=== PATIENT | male | born 1985 ===

== ENCOUNTER 2022-12-10 13:19 | Inpatient (IN) | payer BC, SELFPAY ==
--- NOTE | ~2022-12-10 | CT_ITS ---
PROCEDURE: CT GUIDED ABSCESS DRAINAGE CLINICAL INFORMATION: Appendiceal abscess. COMPARISON: Previous CT of the abdomen and pelvis 12/10/2022. TECHNIQUE: Procedure and risks and benefits including bleeding, infection and injury to the bowel were discussed with the patient and informed consent was obtained. Limited axial images through the right lower quadrant were performed. The right lower quadrant was prepped and draped in the usual sterile fashion. The skin and soft tissues were anesthetized with 1% lidocaine plain. Using CT guidance and a 5 [place] Yueh needle, access to the inferior part of the collection was obtained. No fluid could be aspirated. Subsequently, the more superior aspect of the collection was accessed using a 5 [place] Yueh needle. Slightly cloudy yellow serous fluid was aspirated. Over a 0.035 guidewire and following serial dilatation, an 8.5 [place] drain was placed. Slightly cloudy yellow fluid with white small solid components was aspirated, approximately 25 to 30 mL. Specimen was sent for Gram stain, culture and cytology. Drain was left in place to bulb suction. Findings were discussed with Dr. Nair. The patient received Versed 1.5 mg and fentanyl 75 mcg intravenously during the procedure. Conscious sedation was provided by registered nurse under my direct supervision with 20 minutes of [id number] contact sedation time. This CT examination was performed using dose optimization techniques as appropriate, variously including the following: *Automated exposure control *Adjustment of mA and/or kV according to patient size (this includes techniques or standardized protocols for targeted exams where dose is matched to indication/reason for exam; i.e. extremities or head) *Use of iterative reconstruction technique DLP: 234 mGy-cm. FINDINGS: There is a complex cystic multiloculated fluid collection seen in the right lower quadrant. This has peripheral high attenuation questionable for appendicoliths, bowel contents or calcification superiorly. Findings are slightly increased compared to to 12/10/2022 CT scan. For example more superior portion of the collection with high attenuation wall measures 4.8 x 5.6 cm axial image 7 series 4 compared to 3.2 x 5 cm and inferior component measures 4 x 5 cm axial image 12 series 2 compared to 3 x 3 cm. There is a small amount of surrounding fluid and stranding of the surrounding fat. These changes extend into the right pelvis. Final images demonstrate drain placement in the superior aspect of the collection. CT/CT drain appendiceal abscess IMPRESSION: Right lower quadrant drainage.
--- NOTE | ~2022-12-10 | CT_ITS ---
EXAMINATION: CT ABDOMEN AND PELVIS WITH CONTRAST CLINICAL INFORMATION: Right lower quadrant pain question appendicitis COMPARISON: None TECHNIQUE: Multidetector volumetric images were obtained from the superior aspect of the liver through the pubic symphysis following administration 85 mL of Omnipaque 350 intravenous contrast. Sagittal and coronal reformatted images were obtained on the technologist's workstation. Oral contrast: No This CT examination was performed using dose optimization techniques as appropriate, variously including the following: *Automated exposure control *Adjustment of mA and/or kV according to patient size (this includes techniques or standardized protocols for targeted exams where dose is matched to indication/reason for exam; i.e. extremities or head) *Use of iterative reconstruction technique DLP: 569 mGy-cm FINDINGS: LUNG BASES: Unremarkable. ABDOMINAL AND PELVIC WALL: Small fat-containing umbilical hernia. LIVER AND BILIARY TREE: Unremarkable. GALLBLADDER: Unremarkable. PANCREAS: Unremarkable. SPLEEN: Unremarkable. ADRENAL GLANDS: Unremarkable. KIDNEYS AND URETERS: Unremarkable. GASTROINTESTINAL TRACT: The appendix is dilated, fluid-filled and thick-walled measuring up to 1.5 cm terminating in a approximately 5.6 x 5.5 x 6.1 cm periappendiceal fluid collection suggesting perforation. There is high density material within the collection which may reflect appendicoliths or other bowel contents. No diya rim enhancement. No diya extraluminal intraperitoneal free air. VASCULAR: Unremarkable. LYMPH NODES/PERITONEUM: No lymphadenopathy. FREE FLUID: Trace free fluid along the right paracolic gutter and in the pelvis. BLADDER: Unremarkable. PELVIC VISCERA: Unremarkable. OSSEOUS STRUCTURES: Unremarkable. CT/CT abdomen pelvis w IV con IMPRESSION: The appendix is dilated, fluid-filled and thick-walled measuring up to 1.5 cm compatible with acute appendicitis terminating in a approximately 6.1 cm periappendiceal fluid collection suggesting perforation. There is high density material within the collection which may reflect appendicoliths or other bowel contents. No diya rim enhancement diya extraluminal air. These critical results were discussed with Dr. Gunner Arreola by telephone at 12/10/2022 4:23 PM and it was ascertained that the content and urgency of the report was understood at the time of direct communication.
[2022-12-10 14:03] VITALS: BP 107/71; PULSE 77; RESP 18; TEMP 37.4; O2SAT 99; BMI 28.1
--- NOTE | 2022-12-10 14:03 | ED.ABDPAIN ---
HPI - Abdominal Pain General Chief Complaint: Abdominal Pain Stated Complaint: abd pain Time Seen by Provider: 12/10/22 14:11 Related Data Previous Rx's Medication Instructions Recorded amoxicillin 875 mg-potassium 1 tab PO BID #14 tabs 12/15/22 clavulanate 125 mg tablet oxycodone 5 mg tablet 5 mg PO Q4H PRN pain #10 tabs 12/15/22 Allergies Allergy/AdvReac Type Severity Reaction Status Date / Time No Known Allergies Allergy Verified 12/16/22 13:14 [facility] Past Medical History Medical History (Updated 12/10/22 @ 16:33 by Louie Nair MD) Appendiceal abscess Surgical History (Updated 12/13/22 @ 10:26 by Marjorie Balderas) H/O hand surgery Social History Social History Household Members: Family Housing: House Do you presently have visiting nurse or other home services: No Patient Tobacco Use Status: Never used Tobacco service: No Current occupational status: employed Physical Exam ED Vital Signs: BMI result Body Mass Index 28.1 Course Course Course Narrative: this is a rapid medical exam. Deferred additional HPI, ROS, PE to primary provider. 37 yo male healthy here with RLQ AP since last night. No vomiting/diarrhea/urinary symptoms/fevers/chills. No history of abdominal surgeries. Seen at urgent care and referred in to the ER for further evaluation. Will obtain labs, UA, COVID. Anticipate will need CT A/P. VSS Medical Decision Making Lab Data 12/15/22 05:48 12/10/22 14:45 Labs: Lab Results 12/10/22 12/10/22 12/10/22 Range/Units 14:27 14:27 14:45 WBC 10.4 (4.8-10.8) X10*3/uL RBC 4.78 (4.60-5.80) X10*6/uL Hgb 13.8 L (14.0-18.0) g/dl Hct 42.2 (42.0-52.0) % MCV 88.3 (80.0-98.0) fL MCH 28.9 (27.0-33.0) pg MCHC 32.7 (31.0-36.0) g/dl RDW 13.0 (11.0-16.0) % Plt Count 197 (160-400) X10*3/uL MPV 11.1 (9.4-12.4) fL Immature Gran % (Auto) 0.3 (0.0-0.4) % Neut % (Auto) 61.8 (45-73) % Lymph % (Auto) 30.4 (20-40) % [place] % (Auto) 6.3 (2-11) % Eos % (Auto) 0.9 (0-4) % Baso % (Auto) 0.3 (0-2) % Lymph # (Auto) 3.2 (1.2-4.9) X10*3/uL [place] # (Auto) 0.7 (0.1-1.2) X10*3/uL Eos # (Auto) 0.1 (0.0-0.4) X10*3/uL Baso # (Auto) 0.0 (0.0-0.2) X10*3/uL Abs Immat Gran (auto) 0.03 (0.00-0.03) X10*3/uL Absolute Neuts (auto) 6.4 (2.0-8.3) x10*3/uL Absolute Nucleated RBC 0.000 (0.0-0.012) X10*3/uL Nucleated RBC % (auto) 0.0 (0.0-0.2) /100WBC Sodium 140 (135-145) mmol/L Potassium 4.1 (3.3-5.1) mmol/L Chloride 105 (96-108) mmol/L Carbon Dioxide 27 (22-29) mmol/L Anion Gap 12 (12-20) BUN 15 (9-16) mg/dL Creatinine 0.84 (0.5-1.4) mg/dL Estim Creat Clear Calc 125.8 Estimated GFR > 60 Random Glucose 93 (60-115) mg/dL Calcium 9.1 (8.4-10.2) mg/dL Total Bilirubin 0.5 (0.0-1.0) mg/dL Direct Bilirubin < 0.2 (0.0-0.5) mg/dL AST 16 (5-37) U/L ALT 19 (0-40) U/L Alkaline Phosphatase 56 (39-117) U/L Total Protein 7.8 (6.5-8.0) g/dL Albumin 4.1 (3.5-5.0) g/dL Lipase 27 (8-78) U/L COVID-19 ([facility]ADE) Negative (Negative) COVID-19 Clin Com See Note Medications Administered Discontinued Medications Generic Name Dose Route Start Last Admin Trade Name Freq PRN Reason Stop Dose Admin Acetaminophen 650 mg 12/11/22 14:32 12/13/22 07:40 Acetaminophen 325 Mg Tablet PO 650 mg Q6H PRN Administration Fever Piperacillin Sod/Tazobactam 50 mls @ 100 mls/hr 12/10/22 16:25 12/10/22 18:14 Sod 3.375 gm/ Sodium Chloride IV 12/10/22 16:54 Infused ONCE ONE Infusion Piperacillin Sod/Tazobactam 50 mls @ 100 mls/hr 12/10/22 23:00 12/15/22 11:15 Sod 3.375 gm/ Sodium Chloride IV Infused Q6H MICHAEL Infusion Lactated Ringer's 1,000 mls @ 80 mls/hr 12/10/22 16:45 12/12/22 20:03 Lr IVCONT Infused .[id number] MICHAEL Infusion Dextrose/Lactated Ringer's 1,000 mls @ 80 mls/hr 12/12/22 20:15 12/14/22 15:35 D5lr IVCONT Not Given .[id number] MICHAEL Ibuprofen 400 mg 12/11/22 17:01 12/11/22 18:02 Ibuprofen 400 Mg Tablet PO 400 mg Q6H PRN Administration Fever and mild pain Iohexol 100 ml 12/10/22 15:37 12/10/22 15:37 Iohexol 350 Mg/Ml 100 Ml Infus..Btl IV 12/10/22 15:38 85 ml ONCE ONE Administration Lidocaine HCl 10 ml 12/13/22 13:47 12/13/22 13:47 Lidocaine Hcl 1 % Mpf 5 Ml Vial SUBCUT 12/13/22 13:48 10 ml ONCE ONE Administration Morphine Sulfate 2 mg 12/10/22 16:43 12/10/22 21:17 Morphine Sulfate 2 Mg/Ml Cartridge IVPUSH 2 mg Q3H PRN Administration Pain, Severe (Pain Scale 7-10) Protocol Oxycodone HCl 10 mg 12/10/22 16:43 12/15/22 05:21 Oxycodone Hcl Immed Release 5 Mg Tablet PO 10 mg Q4H PRN Administration Pain, Moderate (Pain Scale 4-6 Sodium Chloride 3 ml 12/11/22 00:00 12/15/22 08:02 0.9 % Sodium Chloride Flush 3 Ml Syringe IVFLUSH 3 ml QSHIFT MICHAEL Administration Discharge Plan Discharge Clinical Impression: Acute perforated appendicitis Patient Disposition: Admitted As Inpatient Interventions: Admission Worksheet (ED) Last Done: 12/10/22 21:48 Discharge Date/Time: 12/10/22 21:48
--- NOTE | 2022-12-10 14:13 | ED_ITS ---
HPI - Abdominal Pain General Chief Complaint: Abdominal Pain Stated Complaint: abd pain Time Seen by Provider: 12/10/22 14:11 Source: patient Mode of arrival: ambulatory Limitations: no limitations History of Present Illness HPI narrative: Patient presented to emergency department complaining of right lower quadrant abdominal pain since yesterday, patient was referred to us from the urgent care MD elicited complaint: abdominal pain Pertinent past history: none Onset (ago): day(s) (1) Pain Consistency: constant Location: other (rt lower quadrant) Severity: moderate Quality: dull Radiation: RLQ Migration to: no migration Exacerbating factors: nothing Relieving factors: nothing Related Data Allergies Allergy/AdvReac Type Severity Reaction Status Date / Time No Known Allergies Allergy Verified 12/10/22 14:04 Review of Systems Constitutional: Reports no additional constitutional complaints Reports system reviewed and no additional complaints, except as documented Cardiovascular: Reports no additional cardiovascular complaints Musculoskeletal: Reports no additional musculoskeletal complaints PMFSH Past Medical History [facility] Narrative: none Social History Social History Advance Directives: No Advance Directives Information Provided: Yes Physical Exam ED Vital Signs: Vital Signs - 24 hr 12/10/22 14:03 Temperature 99.4 F Pulse Rate 77 Respiratory Rate 18 Blood Pressure 107/71 Pulse Oximetry 99 Oxygen Delivery Method Room Air BMI result Body Mass Index 28.1 Const General: cooperative, healthy appearing, comfortable, no acute distress, well developed, alert and awake Nutritional Appearance: average body habitus Orientation/consciousness: patient oriented x3 Limitations: no limitations HENMT Other: wnl Head: Yes normal to inspection General nose exam: Normal external nose present Face and sinus: Yes normal facial exam Neck Neck: Yes normal visual inspection and Yes full ROM Resp Effort & Inspection: normal respiratory effort, able to speak in complete sentences and abnormal respiratory pattern Auscultation: clear to auscultation bilaterally Cardio Jugular venous distension: no JVD Rate: regular rate Rhythm: regular rhythm GI Inspection: Yes normal to inspection Palpation (GI): Tenderness to palpation present (GI) (Right lower quadrant t enderness) in the RLQ Auscultation: normal bowel sounds Skin General skin exam: no rashes or lesions noted and elasticity normal Lesions: no lesions Rashes: no rashes Neuro General: patient oriented x3 Cranial nerves: Yes CN's II-XII intact bilaterally Motor exam (neuro): 5/5 motor strength present throughout Course Reevaluation(s) Reevaluation #1: CT SCAN SHOWED PERFORATED APPENDICITIS DR. ROLLINS IS HIS HERE BEDSIDE Time: 16:30 Medical Decision Making Medical Decision Making [facility] Narrative: Patient presented with right lower quadrant abdominal pain referred to us from urgent care will do CT labs Differential Diagnosis Differential Diagnoses: The differential diagnosis associated with the presentat ion includes Appendicitis/diverticulitis/colitis Admission/Observation Consideration of admission/observation: Escalation of care including admission/observation considered Consult Healthcare Provider Management of the patient was discussed with: U[employer]olstery [employer]er dR ROLLINS Lab Data [facility] Lab Attestation statement: I reviewed the patient's lab results. 12/10/22 14:27 12/10/22 14:45 Labs: Lab Results 12/10/22 12/10/22 12/10/22 Range/Units 14:27 14:27 14:45 WBC 10.4 (4.8-10.8) X10*3/uL RBC 4.78 (4.60-5.80) X10*6/uL Hgb 13.8 L (14.0-18.0) g/dl Hct 42.2 (42.0-52.0) % MCV 88.3 (80.0-98.0) fL MCH 28.9 (27.0-33.0) pg MCHC 32.7 (31.0-36.0) g/dl RDW 13.0 (11.0-16.0) % Plt Count 197 (160-400) X10*3/uL MPV 11.1 (9.4-12.4) fL Immature Gran % (Auto) 0.3 (0.0-0.4) % Neut % (Auto) 61.8 (45-73) % Lymph % (Auto) 30.4 (20-40) % [place] % (Auto) 6.3 (2-11) % Eos % (Auto) 0.9 (0-4) % Baso % (Auto) 0.3 (0-2) % Lymph # (Auto) 3.2 (1.2-4.9) X10*3/uL [place] # (Auto) 0.7 (0.1-1.2) X10*3/uL Eos # (Auto) 0.1 (0.0-0.4) X10*3/uL Baso # (Auto) 0.0 (0.0-0.2) X10*3/uL Abs Immat Gran (auto) 0.03 (0.00-0.03) X10*3/uL Absolute Neuts (auto) 6.4 (2.0-8.3) x10*3/uL Absolute Nucleated RBC 0.000 (0.0-0.012) X10*3/uL Nucleated RBC % (auto) 0.0 (0.0-0.2) /100WBC Sodium 140 (135-145) mmol/L Potassium 4.1 (3.3-5.1) mmol/L Chloride 105 (96-108) mmol/L Carbon Dioxide 27 (22-29) mmol/L Anion Gap 12 (12-20) BUN 15 (9-16) mg/dL Creatinine 0.84 (0.5-1.4) mg/dL Estim Creat Clear Calc 125.8 Estimated GFR > 60 Random Glucose 93 (60-115) mg/dL Calcium 9.1 (8.4-10.2) mg/dL Total Bilirubin 0.5 (0.0-1.0) mg/dL Direct Bilirubin < 0.2 (0.0-0.5) mg/dL AST 16 (5-37) U/L ALT 19 (0-40) U/L Alkaline Phosphatase 56 (39-117) U/L Total Protein 7.8 (6.5-8.0) g/dL Albumin 4.1 (3.5-5.0) g/dL Lipase 27 (8-78) U/L COVID-19 ([facility]) Negative (Negative) COVID-19 Clin Com See Note Radiology Impression Discussion of test interpretation with radiology: I discussed test inte rpretation with the radiologist and I have reviewed the radiologist's reading. Radiologist Impression: PELVIC VISCERA: Unremarkable. OSSEOUS STRUCTURES: Unremarkable.? CT/CT abdomen pelvis w IV con IMPRESSION: ? The appendix is dilated, fluid-filled and thick-walled measuring up to 1.5 cm compatible with acute appendicitis terminating in a approximately 6.1 cm periappendiceal fluid collection suggesting perforation. There is high density material within the collection which may reflect appendicoliths or other bowel contents.? No diya rim enhancement diya extraluminal air. ? These critical results were discussed with Dr. Gunner Arreola by telephone at 12/10/2022 4:23 PM and it was ascertained that the content and urgency of the report was understood at the time of direct communication. ? ? ? Dictated By: Carmencita Ag MD Signed By: <Electronically signed by Carmencita Ag MD in OV> 12/10/22 1624 Medications Administered Discontinued Medications Generic Name Dose Route Start Last Admin Trade Name Freq PRN Reason Stop Dose Admin Iohexol 100 ml 12/10/22 15:37 12/10/22 15:37 Iohexol 350 Mg/Ml 100 Ml Infus..Btl IV 12/10/22 15:38 85 ml ONCE ONE Administration Discharge Plan Discharge Clinical Impression: Acute perforated appendicitis Patient Disposition: Admitted As Inpatient
[2022-12-10 14:31] LABS: MANUAL DIFF FLAG NO
[2022-12-10 14:32] LABS: Basophils Percent Auto 0.3 % (0-2); Eosinophils Absolute Auto 0.1 X10*3/uL (0.0-0.4); Eosinophils Percent Auto 0.9 % (0-4); Hematocrit 42.2 % (42.0-52.0); Hemoglobin 13.8 g/dl (14.0-18.0); Imm Gran Abs Auto 0.03 X10*3/uL (0.00-0.03); Imm Gran Pct Auto 0.3 % (0.0-0.4); Lymphocytes Absolute Auto 3.2 X10*3/uL (1.2-4.9); Lymphocytes Percent Auto 30.4 % (20-40); Mean Corpuscular HGB Conc 32.7 g/dl (31.0-36.0); Mean Corpuscular Hemoglobin 28.9 pg (27.0-33.0); Mean Corpuscular Volume 88.3 fL (80.0-98.0); Mean Platelet Volume 11.1 fL (9.4-12.4); Monocytes Absolute Auto 0.7 X10*3/uL (0.1-1.2); Monocytes Percent Auto 6.3 % (2-11); Neutrophils Absolute Auto 6.4 x10*3/uL (2.0-8.3); Neutrophils Percent Auto 61.8 % (45-73); Platelet Count 197 X10*3/uL (160-400); Red Blood Count 4.78 X10*6/uL (4.60-5.80); White Blood Count 10.4 X10*3/uL (4.8-10.8)
[2022-12-10 14:47] LABS: COVID-19 Test Negative (Negative); IDNOW Serial# 16C4AD1C
[2022-12-10 15:11] LABS: Alanine Aminotransferase 19 U/L (0-40); Albumin Level 4.1 g/dL (3.5-5.0); Alkaline Phosphatase 56 U/L (39-117); Anion Gap 12 (12-20); Aspartate Amino Transferase 16 U/L (5-37); Bilirubin Direct < 0.2 mg/dL (0.0-0.5); Bilirubin Total 0.5 mg/dL (0.0-1.0); Blood Urea Nitrogen 15 mg/dL (9-16); Calcium 9.1 mg/dL (8.4-10.2); Carbon Dioxide 27 mmol/L (22-29); Chloride 105 mmol/L (96-108); Creatinine Clr Calc Pharmacy 125.8; Estimated Glomerular Filt Rate > 60; Glucose Random 93 mg/dL (60-115); Lipase 27 U/L (8-78); Potassium 4.1 mmol/L (3.3-5.1); Sodium 140 mmol/L (135-145); Total Protein 7.8 g/dL (6.5-8.0)
[2022-12-10] MEDS: iohexoL 350 MG/ML 100 ML INFUS..BTL IV (15:37)
--- NOTE | 2022-12-10 16:32 | P.HPGS_ITS ---
History of Present Illness History of Present Illness Date of Service: 12/15/22 Chief complaint: appendiceal abscess Narrative: Terrence Diamond is a 37 year old male who came to the ER today because of pain on the right lower flank area. He says that this started late last night. He said that he was perfectly fine throughout the day and did not have any pain or any GI symptoms. His pain had persisted throughout the night so he came to the emergency room today. He did not have any vomiting or nausea. He does not have any fever. He feels well overall. He denies any diarrhea. He denies any other recent episodes of pain. Review of Systems Constitutional: Constitutional: Denies chills and Denies fever(s) Cardiovascular: Cardiovascular: Denies chest pain, Denies dyspnea and Denies dyspnea on exertion Respiratory: Respiratory: Denies cough, Denies dyspnea and Denies dyspnea on exertion Gastrointestinal: Gastrointestinal: Denies hematochezia and Denies change in bowel habits Genitourinary: Genitourinary: Denies hematuria and Denies difficulty urinating Musculoskeletal: Musculoskeletal: Denies back pain and Denies limited range of motion Neurologic: Denies focal weakness and Denies convulsions Psychiatric: Psychiatric: Denies depression and Denies mood swings PMFSH Past Medical History Medical History (Updated 12/10/22 @ 16:33 by Louie Nair MD) Appendiceal abscess Surgical History Surgical History (Updated 12/13/22 @ 10:26 by Marjorie Balderas) H/O hand surgery Social History Social History Household Members: Family Housing: House Do you presently have visiting nurse or other home services: No Patient Tobacco Use Status: Never used Tobacco Use of substances other than those prescribed or required for medical reasons: No Currently Displaying Signs/Symptoms of Drug Intoxication Withdrawal: No Have you been hit, kicked, punched, or otherwise hurt by someone within the past year? If so, by whom?: No Do you feel safe in your current relationship?: Yes Is there a partner from a previous relationship who is making you feel unsafe now?: No Are you made to feel afraid or neglected: No Cultural Healthcare Practices: practicing orthodoxy Advance Directives: No Advance Directives Information Provided: Yes Do you have thoughts of harming others: None Do you have a plan to hurt others: No Plan Recently lost weight without trying: No Nutrition Risks: No Nutritional Risk Poor oral hygiene: No service: No Current occupational status: employed Meds Allergies Allergy/AdvReac Type Severity Reaction Status Date / Time No Known Allergies Allergy Verified 12/13/22 10:23 Active Medications: Current Medications Piperacillin Sod/Tazobactam (Sod 3.375 gm/ Sodium Chloride) 50 mls @ 100 mls/hr IV ONCE ONE Stop: 12/10/22 16:54 Physical Exam Vital Signs: Vital Signs: Last Vital Signs Temp 99.4 F 12/10/22 14:03 Pulse 77 12/10/22 14:03 Resp 18 12/10/22 14:03 BP 107/71 12/10/22 14:03 Pulse Ox 99 12/10/22 14:03 O2 Del Method 12/10/22 14:03 BMI result Body Mass Index 28.1 Const: General: comfortable and no acute distress Orientation/consciousness: patient oriented x3 Neck: Neck: Yes no lymphadenopathy Resp: Auscultation: clear to auscultation bilaterally Cardio: Rhythm: regular rhythm GI: Other: Tender on the right lateral lower flank area, no guarding rebound Palpation (GI): Soft to palpation, nontender and no guarding Neuro: General: patient oriented x3 Results Results Labs: Short CBC 12/10/22 Range/Units 14:27 WBC 10.4 (4.8-10.8) X10*3/uL Hgb 13.8 L (14.0-18.0) g/dl Hct 42.2 (42.0-52.0) % Plt Count 197 (160-400) X10*3/uL BMP 12/10/22 14:45 Sodium 140 Potassium 4.1 Chloride 105 Carbon Dioxide 27 BUN 15 Creatinine 0.84 Calcium 9.1 Liver Function 12/10/22 Range/Units 14:45 Total Bilirubin 0.5 (0.0-1.0) mg/dL Direct Bilirubin < 0.2 (0.0-0.5) mg/dL AST 16 (5-37) U/L ALT 19 (0-40) U/L Alkaline Phosphatase 56 (39-117) U/L Albumin 4.1 (3.5-5.0) g/dL Additional studies: Laboratory Results WBC 10.4 X10*3/uL (4.8-10.8) 12/10/22 14: RBC 4.78 X10*6/uL (4.60-5.80) 12/10/22 14: Hgb 13.8 g/dl (14.0-18.0) L 12/10/22 14: Hct 42.2 % (42.0-52.0) 12/10/22 14: MCV 88.3 fL (80.0-98.0) 12/10/22 14: MCH 28.9 pg (27.0-33.0) 12/10/22 14: MCHC 32.7 g/dl (31.0-36.0) 12/10/22: RDW 13.0 % (11.0-16.0) 12/10/22: Plt Count 197 X10*3/uL (160-400) 12/10/22: MPV 11.1 fL (9.4-12.4) 12/10/22: Immature Gran % (Auto) 0.3 % (0.0-0.4) 12/10/22 14: Neut % (Auto) 61.8 % (45-73) 12/10/22: Lymph % (Auto) 30.4 % (20-40) 12/10/22: [place] % (Auto) 6.3 % (2-11) 12/10/22: Eos % (Auto) 0.9 % (0-4) 12/10/22: Baso % (Auto) 0.3 % (0-2) 12/10/22: Lymph # (Auto) 3.2 X10*3/uL (1.2-4.9) 12/10/22: [place] # (Auto) 0.7 X10*3/uL (0.1-1.2) 12/10/22: Eos # (Auto) 0.1 X10*3/uL (0.0-0.4) 12/10/22 14: Baso # (Auto) 0.0 X10*3/uL (0.0-0.2) 12/10/22 14: Abs Immat Gran (auto) 0.03 X10*3/uL (0.00-0.03) 12/10/22 14:27 Absolute Neuts (auto) 6.4 x10*3/uL (2.0-8.3) 12/10/22 14:27 Absolute Nucleated RBC 0.000 X10*3/uL (0.0-0.012) 12/10/22 14:27 Nucleated RBC % (auto) 0.0 /100WBC (0.0-0.2) 12/10/22 14:27 Sodium 140 mmol/L (135-145) 12/10/22 14:45 Potassium 4.1 mmol/L (3.3-5.1) 12/10/22 14:45 Chloride 105 mmol/L (96-108) 12/10/22 14:45 Carbon Dioxide 27 mmol/L (22-29) 12/10/22 14:45 Anion Gap 12 (12-20) 12/10/22 14:45 BUN 15 mg/dL (9-16) 12/10/22 14:45 Creatinine 0.84 mg/dL (0.5-1.4) 12/10/22 14:45 Estim Creat Clear Calc 125.8 12/10/22 14:45 Estimated GFR > 60 12/10/22 14:45 Random Glucose 93 mg/dL (60-115) 12/10/22 14:45 Calcium 9.1 mg/dL (8.4-10.2) 12/10/22 14:45 Total Bilirubin 0.5 mg/dL (0.0-1.0) 12/10/22 14:45 Direct Bilirubin < 0.2 mg/dL (0.0-0.5) 12/10/22 14:45 AST 16 U/L (5-37) 12/10/22 14:45 ALT 19 U/L (0-40) 12/10/22 14:45 Alkaline Phosphatase 56 U/L (39-117) 12/10/22 14:45 Total Protein 7.8 g/dL (6.5-8.0) 12/10/22 14:45 Albumin 4.1 g/dL (3.5-5.0) 12/10/22 14:45 Lipase 27 U/L (8-78) 12/10/22 14:45 COVID-19 ([facility]) Negative (Negative) 12/10/22 14:27 COVID-19 Clin Com See Note 12/10/22 14:27 Impressions Abdomen/Pelvis CT 12/10/22 15:51 IMPRESSION: The appendix is dilated, fluid-filled and thick-walled measuring up to 1.5 cm compatible with acute appendicitis terminating in a approximately 6.1 cm periappendiceal fluid collection suggesting perforation. There is high density material within the collection which may reflect appendicoliths or other bowel contents. No diya rim enhancement diya extraluminal air. These critical results were discussed with Dr. Gunner Arreola by telephone at 12/10/2022 4:23 PM and it was ascertained that the content and urgency of the report was understood at the time of direct communication. Assessment and Plan (1) Appendiceal abscess: Status: Acute He is tender on the right lower lateral flank area. There is is abdomen is very benign and without significant tenderness. I have reviewed his CAT scan under is a well-defined abscess, about 6.1 cm in widest diameter adjacent to the appendix consistent with a perforated appendicitis. There is no free air. There was no other significant inflammatory changes surrounding this area. His exam is otherwise benign. I will admit him for IV antibiotics. I will schedule him for CT drainage. I explained the plan to him. Otherwise, he does not appear septic at all and looks very comfortable except with the tenderness on palpation. He understands the plan well. I will keep him NPO for the morning in case this CT drainage can be done tomorrow which is a Monday. Time Spent With Patient Time: Total time managing care of this patient today ____ minutes. Quality Stroke Does the patient have a stroke diagnosis?: No VTE Prior VTE?: No VTE Risk Level:: Medical - low VTE Device Contraindication: N/A - Device Ordered VTE Drug Contraindication: Treatment Not Indicated Procedures Date of Service Date of Service: 12/10/22
--- NOTE | 2022-12-10 16:40 | PHA.MEDREC ---
Pharmacy Consult ? Medication Reconciliation Pharmacy has completed the medication reconciliation. Patient confirms no home medications.
[2022-12-10] MEDS: Piperacillin Sodium/Tazobactam 3.375 GM in 0.9 % Sodium Chloride 50 ML IV (17:35)
[2022-12-10] MEDS: Lactated Ringers 1,000 ML 80 ML IVCONT (17:35)
[2022-12-10 17:40] VITALS: BP 112/72; PULSE 74; RESP 16; TEMP 37; O2SAT 96
--- NOTE | 2022-12-10 19:10 | PC.NURSE ---
assumed care of pt no apparent distress, no guarding to affected area resting quietly call light within reach
--- NOTE | 2022-12-10 19:50 | PC.NURSE ---
pt ambulated to restroom independently/safely
--- NOTE | 2022-12-10 19:55 | PC.NURSE ---
med rec completed by pharmacy prior to this nurse assuming care of pt
[2022-12-10 21:17] VITALS: RESP 12
[2022-12-10] MEDS: Morphine Sulfate 2 MG/ML CARTRIDGE IVPUSH (21:17)
[2022-12-10 21:31] VITALS: BP 105/69; PULSE 65; RESP 11; TEMP 36.7; O2SAT 100
--- NOTE | 2022-12-10 21:47 | PC.NURSE ---
report given to SUKHJINDER Sotelo S3
[2022-12-10 22:15] VITALS: BMI 28.1
[2022-12-10 23:41] VITALS: BP 101/69; PULSE 68; RESP 18; TEMP 36.8; O2SAT 98
[2022-12-11] MEDS: Piperacillin Sodium/Tazobactam 3.375 GM in 0.9 % Sodium Chloride 50 ML IV ×5 (00:01→23:33)
[2022-12-11 02:24] LABS: Appearance Urine Clear; Color Urine Yellow; Glucose Urine UA Negative (Negative); Leukocyte Esterase Urine Negative (Negative); Nitrite Urine Negative (Negative); Specific Gravity - Urine >= 1.030 (1.005-1.025); Urine Blood Negative (Negative); Urine Ketones Negative (Negative); Urine Protein Trace mg/dL (Neg-Trace)
[2022-12-11 03:33] VITALS: BP 95/59; PULSE 70; RESP 18; TEMP 36.6; O2SAT 98
[2022-12-11] MEDS: oxyCODONE HCl Immed Release 5 MG TABLET 10 MG PO ×4 (03:37→21:31)
[2022-12-11] MEDS: 0.9 % Sodium Chloride Flush 3 ML SYRINGE IVFLUSH ×2 (03:40→21:33)
[2022-12-11] MEDS: Lactated Ringers 1,000 ML 80 ML IVCONT ×2 (03:54→10:19)
[2022-12-11 05:56] LABS: Hematocrit 38.7 % (42.0-52.0); Hemoglobin 12.7 g/dl (14.0-18.0); Mean Corpuscular HGB Conc 32.8 g/dl (31.0-36.0); Mean Corpuscular Hemoglobin 29.5 pg (27.0-33.0); Mean Platelet Volume 11.7 fL (9.4-12.4); Platelet Count 184 X10*3/uL (160-400); White Blood Count 13.1 X10*3/uL (4.8-10.8)
[2022-12-11 06:04] LABS: INTERNATIONAL NORM RATIO 1.2 (0.9-1.1); Prothrombin Time 13.6 SEC (10.0-13.1)
[2022-12-11 07:48] VITALS: BP 104/60; PULSE 75; RESP 18; TEMP 37.1; O2SAT 97
--- NOTE | 2022-12-11 10:31 | P.PNGS_ITS ---
Subjective Subjective Date of Service: 12/12/22 Interval history: feels 'OK pain on right side unchanged, not worse he says no fever looks well asking about food Physical Exam Vital Signs: Vital Signs: Last Vital Signs Temp 98.8 F 12/11/22 07:48 Pulse 75 12/11/22 07:48 Resp 18 12/11/22 07:48 BP 104/60 12/11/22 07:48 Pulse Ox 97 12/11/22 07:48 O2 Del Method 12/11/22 07:48 BMI result Body Mass Index 28.1 Const: General: comfortable and no acute distress Resp: Effort & Inspection: normal respiratory effort Cardio: Rate: regular rate GI: Other: tender on the right flank area, no Rovsings Palpation (GI): Soft to palpation, not firm and no guarding Objective Data Active Medications Piperacillin Sod/Tazobactam (Sod 3.375 gm/ Sodium Chloride) 50 mls @ 100 mls/hr IV Q6H [facility] Last Infusion: 12/11/22 05:20 Dose: 0 mls/hr Documented By: MATEUS Lactated Ringer's (Lr) 1,000 mls @ 80 mls/hr IVCONT .[id number] [facility] Last Admin: 12/11/22 10:19 Dose: 80 mls/hr Documented By: ANG Morphine Sulfate (Morphine Sulfate 2 Mg/Ml Cartridge) 2 mg IVPUSH Q3H PRN; Protocol PRN Reason: Pain, Severe (Pain Scale 7-10) Last Admin: 12/10/22 21:17 Dose: 2 mg Documented By: TAMY Oxycodone HCl (Oxycodone Hcl Immed Release 5 Mg Tablet) 10 mg PO Q4H PRN PRN Reason: Pain, Moderate (Pain Scale 4-6 Last Admin: 12/11/22 08:42 Dose: 10 mg Documented By: ANG Sodium Chloride (0.9 % Sodium Chloride Flush 3 Ml Syringe) 3 ml IVFLUSH QSHIFT [facility] Last Admin: 12/11/22 08:38 Dose: Not Given Documented By: ANG Non-Admin Reason: IV Running Labs 12/11/22 05:30 12/10/22 14:45 Labs: Laboratory Results - last 24 hr 12/10/22 12/10/22 12/10/22 14:27 14:27 14:45 MCV 88.3 MCH 28.9 MCHC 32.7 RDW 13.0 Plt Count 197 MPV 11.1 Immature Gran % (Auto) 0.3 Neut % (Auto) 61.8 Lymph % (Auto) 30.4 Pike % (Auto) 6.3 Eos % (Auto) 0.9 Baso % (Auto) 0.3 Lymph # (Auto) 3.2 Pike # (Auto) 0.7 Eos # (Auto) 0.1 Baso # (Auto) 0.0 Abs Immat Gran (auto) 0.03 Absolute Neuts (auto) 6.4 Absolute Nucleated RBC 0.000 Nucleated RBC % (auto) 0.0 PT INR Anion Gap 12 Estim Creat Clear Calc 125.8 Estimated GFR > 60 Random Glucose 93 Calcium 9.1 Total Bilirubin 0.5 Direct Bilirubin < 0.2 AST 16 ALT 19 Alkaline Phosphatase 56 Total Protein 7.8 Albumin 4.1 Lipase 27 Urine Color Urine Appearance Urine pH Ur Specific [place] Urine Protein Urine Glucose (UA) Urine Ketones Urine Blood Urine Nitrite Ur Leukocyte Esterase COVID-19 ([facility]) Negative [facility] See Note 12/11/22 12/11/22 12/11/22 00:01 05:30 05:30 MCV 90.0 MCH 29.5 MCHC 32.8 RDW 13.0 Plt Count 184 MPV 11.7 Immature Gran % (Auto) Neut % (Auto) Lymph % (Auto) [place] % (Auto) Eos % (Auto) Baso % (Auto) Lymph # (Auto) [place] # (Auto) Eos # (Auto) Baso # (Auto) Abs Immat Gran (auto) Absolute Neuts (auto) Absolute Nucleated RBC 0.000 Nucleated RBC % (auto) 0.0 PT 13.6 H INR 1.2 H Anion Gap Estim Creat Clear Calc Estimated GFR Random Glucose Calcium Total Bilirubin Direct Bilirubin AST ALT Alkaline Phosphatase Total Protein Albumin Lipase Urine Color Yellow Urine Appearance Clear Urine pH 7.0 Ur Specific [place] >= 1.030 H Urine Protein Trace Urine Glucose (UA) Negative Urine Ketones Negative Urine Blood Negative Urine Nitrite Negative Ur Leukocyte Esterase Negative COVID-19 ([facility]) [facility] Procedures Date of Service Date of Service: 12/11/22 Progress Note: A&P Assessment and plan (1) Appendiceal abscess: Status: Acute Assessment and Plan: I have scheduled him for CT drainage for possible appendiceal abscess as per radiology dept - can not be done today because of holiday staffing explained this to pt his WBC is up but he continues to look well abd remains very soft and benign, tenderness localized on right lower flank follow WBC I ahve asked radiology to see if CT drain can be done tomorrow (Pres's ) at bedside as well - both understand plan IV abx Time Spent With Patient Time: Total time managing care of this patient today ____ minutes. Quality Stroke Does the patient have a stroke diagnosis?: No VTE Prior VTE?: No VTE Risk Level:: Medical - low VTE Device Contraindication: N/A - Device Ordered VTE Drug Contraindication: Treatment Not Indicated
[2022-12-11] MEDS: Acetaminophen 325 MG TABLET 650 MG PO ×2 (14:50→21:32)
[2022-12-11 14:52] VITALS: TEMP 37.9
[2022-12-11 16:15] VITALS: BP 119/71; PULSE 101; RESP 18; TEMP 38.5; O2SAT 94
--- NOTE | 2022-12-11 16:28 | PM.EVENT ---
Event Note Date of Service: 12/11/22 Event Note: had fever this afternoon abd remains soft and benign says pain is not worse looks comfortable otherwise talked to Dr Joaquin of radiology - plan to do CT drain tomorrow and ask staff to come explained this to pt continue IV abx IVF Time Spent With Patient Time: Total time managing care of this patient today ____ minutes.
[2022-12-11] MEDS: Ibuprofen 400 MG TABLET PO (18:02)
[2022-12-11 20:13] VITALS: BP 119/72; PULSE 100; RESP 18; TEMP 37.9; O2SAT 95
[2022-12-11 22:32] VITALS: TEMP 36.8
[2022-12-12] VITALS (7 sets, daily range): BP systolic 108–120; BP diastolic 68–78; PULSE 66–108; RESP 18; TEMP 36.7–39.4; O2SAT 91–99
[2022-12-12] MEDS: Piperacillin Sodium/Tazobactam 3.375 GM in 0.9 % Sodium Chloride 50 ML IV ×4 (05:20→22:17)
[2022-12-12] MEDS: oxyCODONE HCl Immed Release 5 MG TABLET 10 MG PO ×3 (05:48→18:06)
[2022-12-12] MEDS: Lactated Ringers 1,000 ML 80 ML IVCONT (05:50)
--- NOTE | 2022-12-12 06:17 | PC.NURSE ---
Patient currently afebrile. Reported pain managed per orders throughout shift. up ad julia.
[2022-12-12 06:34] LABS: Hematocrit 38.2 % (42.0-52.0); Hemoglobin 12.5 g/dl (14.0-18.0); Mean Corpuscular HGB Conc 32.7 g/dl (31.0-36.0); Mean Corpuscular Hemoglobin 29.7 pg (27.0-33.0); Mean Corpuscular Volume 90.7 fL (80.0-98.0); Mean Platelet Volume 11.6 fL (9.4-12.4); Platelet Count 175 X10*3/uL (160-400); Red Blood Count 4.21 X10*6/uL (4.60-5.80); Red Cell Distribution Width 13.1 % (11.0-16.0); White Blood Count 20.2 X10*3/uL (4.8-10.8)
--- NOTE | 2022-12-12 07:49 | PM.PNGS ---
Subjective Subjective Date of Service: 12/12/22 Interval history: thinks he feels slightly better still with pain/tenderness on right lower flank area fever this AM - had fever yesterday afternoon otherwise he says he is comfortable Physical Exam Vital Signs: Vital Signs: Last Vital Signs Temp 101.4 F H 12/12/22 07:14 Pulse 89 12/12/22 07:14 Resp 18 12/12/22 07:14 BP 108/69 12/12/22 07:14 Pulse Ox 91 L 12/12/22 07:14 O2 Del Method 12/12/22 07:14 BMI result Body Mass Index 28.1 Const: General: comfortable and no acute distress Resp: Effort & Inspection: normal respiratory effort Cardio: Rate: regular rate GI: Other: tender on right lower flank area Palpation (GI): Soft to palpation, not firm and no guarding Objective Data Active Medications Acetaminophen (Acetaminophen 325 Mg Tablet) 650 mg PO Q6H PRN PRN Reason: Fever Last Admin: 12/11/22 21:32 Dose: 650 mg Documented By: MICHELLE Piperacillin Sod/Tazobactam (Sod 3.375 gm/ Sodium Chloride) 50 mls @ 100 mls/hr IV Q6H [facility] Last Infusion: 12/12/22 05:50 Dose: 0 mls/hr Documented By: MICHELLE Lactated Ringer's (Lr) 1,000 mls @ 80 mls/hr IVCONT .[id number] [facility] Last Admin: 12/12/22 05:50 Dose: 80 mls/hr Documented By: MICHELLE Ibuprofen (Ibuprofen 400 Mg Tablet) 400 mg PO Q6H PRN PRN Reason: Fever and mild pain Last Admin: 12/11/22 18:02 Dose: 400 mg Documented By: ANG Morphine Sulfate (Morphine Sulfate 2 Mg/Ml Cartridge) 2 mg IVPUSH Q3H PRN; Protocol PRN Reason: Pain, Severe (Pain Scale 7-10) Last Admin: 12/10/22 21:17 Dose: 2 mg Documented By: TAMY Oxycodone HCl (Oxycodone Hcl Immed Release 5 Mg Tablet) 10 mg PO Q4H PRN PRN Reason: Pain, Moderate (Pain Scale 4-6 Last Admin: 12/12/22 05:48 Dose: 10 mg Documented By: MICHELLE Sodium Chloride (0.9 % Sodium Chloride Flush 3 Ml Syringe) 3 ml IVFLUSH QSHIFT [facility] Last Admin: 12/11/22 21:33 Dose: 3 ml Documented By: MICHELLE Labs 12/12/22 06:08 12/10/22 14:45 Labs: Laboratory Results - last 24 hr 12/12/22 06:08 MCV 90.7 MCH 29.7 MCHC 32.7 RDW 13.1 Plt Count 175 MPV 11.6 Absolute Nucleated RBC 0.000 Nucleated RBC % (auto) 0.0 Procedures Date of Service Date of Service: 12/12/22 Progress Note: A&P Assessment and plan (1) Appendiceal abscess: Status: Acute Assessment and Plan: exam remains benign but his WBC is increasing has fever I have been trying to facilitate his CT drainage - dw radiologist yesterday who says they will do it however, in view of holiday weekend, this could not be done yesterday I am in discussions with radiology staff to do CT drain today pt looks comfortable otherwise IV abx Time Spent With Patient Time: Total time managing care of this patient today ____ minutes. Quality Stroke Does the patient have a stroke diagnosis?: No VTE Prior VTE?: No VTE Risk Level:: Medical - low VTE Device Contraindication: N/A - Device Ordered VTE Drug Contraindication: Treatment Not Indicated
[2022-12-12] MEDS: Acetaminophen 325 MG TABLET 650 MG PO ×2 (08:06→15:14)
--- NOTE | 2022-12-12 15:26 | PC.NURSE ---
Day RN reported fever 103,Tylenol administered,ice packs for comfort,will monitor
--- NOTE | 2022-12-12 16:22 | MHC.CM.PN ---
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
[2022-12-12] MEDS: Dextrose 5 % and Lactated Ring 1,000 ML 80 ML IVCONT (20:21)
[2022-12-13] VITALS (7 sets, daily range): BP systolic 103–125; BP diastolic 59–78; PULSE 84–98; RESP 16–18; TEMP 36.8–38.2; O2SAT 94–97
[2022-12-13] MEDS: oxyCODONE HCl Immed Release 5 MG TABLET 10 MG PO ×3 (02:19→18:14)
[2022-12-13] MEDS: Piperacillin Sodium/Tazobactam 3.375 GM in 0.9 % Sodium Chloride 50 ML IV ×4 (06:03→22:53)
--- NOTE | 2022-12-13 07:23 | P.PNGS_ITS ---
Subjective Subjective Date of Service: 12/14/22 Interval history: CT drain not done yesterday - as per radiology dept: no research technologist available explained this to pt he continues to have febrile episodes pain the same Physical Exam Vital Signs: Vital Signs: Last Vital Signs Temp 100.8 F H 12/13/22 07:15 Pulse 86 12/13/22 07:15 Resp 18 12/13/22 07:15 BP 106/60 12/13/22 07:15 Pulse Ox 96 12/13/22 07:15 O2 Del Method 12/13/22 07:15 BMI result Body Mass Index 28.1 Const: General: comfortable Resp: Effort & Inspection: normal respiratory effort Cardio: Rate: regular rate GI: Palpation (GI): Soft to palpation, not firm, Tenderness to palpation present (GI) (tender on RLQ/flank), no guarding and not rigid Objective Data Active Medications Acetaminophen (Acetaminophen 325 Mg Tablet) 650 mg PO Q6H PRN PRN Reason: Fever Last Admin: 12/12/22 15:14 Dose: 650 mg Documented By: WHITNEY Piperacillin Sod/Tazobactam (Sod 3.375 gm/ Sodium Chloride) 50 mls @ 100 mls/hr IV Q6H [facility] Last Infusion: 12/13/22 06:38 Dose: 0 mls/hr Documented By: MARNIE Dextrose/Lactated Ringer's (D5lr) 1,000 mls @ 80 mls/hr IVCONT .[id number] [facility] Last Admin: 12/12/22 20:21 Dose: 80 mls/hr Documented By: WHITNEY Ibuprofen (Ibuprofen 400 Mg Tablet) 400 mg PO Q6H PRN PRN Reason: Fever and mild pain Last Admin: 12/11/22 18:02 Dose: 400 mg Documented By: ANG Morphine Sulfate (Morphine Sulfate 2 Mg/Ml Cartridge) 2 mg IVPUSH Q3H PRN; Protocol PRN Reason: Pain, Severe (Pain Scale 7-10) Last Admin: 12/10/22 21:17 Dose: 2 mg Documented By: TAMY Oxycodone HCl (Oxycodone Hcl Immed Release 5 Mg Tablet) 10 mg PO Q4H PRN PRN Reason: Pain, Moderate (Pain Scale 4-6 Last Admin: 12/13/22 02:19 Dose: 10 mg Documented By: MARNIE Sodium Chloride (0.9 % Sodium Chloride Flush 3 Ml Syringe) 3 ml IVFLUSH QSHIFT [facility] Last Admin: 12/13/22 00:07 Dose: Not Given Documented By: MARNIE Non-Admin Reason: IV Running Labs 12/12/22 06:08 12/10/22 14:45 Procedures Date of Service Date of Service: 12/13/22 Progress Note: A&P Assessment and plan (1) Appendiceal abscess: Status: Acute Assessment and Plan: for CT drain today has febrile episodes exam remains the same - no guarding on IV abx otherwise hemodynamically stable Time Spent With Patient Time: Total time managing care of this patient today ____ minutes. Quality Stroke Does the patient have a stroke diagnosis?: No VTE Prior VTE?: No VTE Risk Level:: Medical - low VTE Device Contraindication: N/A - Device Ordered VTE Drug Contraindication: Treatment Not Indicated
[2022-12-13] MEDS: Acetaminophen 325 MG TABLET 650 MG PO (07:40)
[2022-12-13] MEDS: Dextrose 5 % and Lactated Ring 1,000 ML 80 ML IVCONT ×2 (07:42→20:34)
--- NOTE | 2022-12-13 13:11 | HO.RADPN ---
RADIOLOGY Narrative Narrative: Repeat imaging shows increasing size of RLQ collection. RLQ 8.5 fr drain placed. 20 mL clear yellow fluid with white solid pieces aspirated. Findings discussed with Dr Nair. Specimen sent for gram stain culture and cytology.
[2022-12-13] MEDS: Lidocaine HCl 1 % MPF 5 ML VIAL 10 ML SUBCUT (13:47)
--- NOTE | 2022-12-13 15:09 | PM.EVENT ---
Event Note Date of Service: 12/13/22 Event Note: Seen on afternoon rounds CT drain done - was present towards the end of this procedure - contents aspirated was not purulent -more series with some tiny particles Does not appear to be an abscess Sent for cultures, cytology Patient tolerated procedure well Feels much better with regards to pain Continue IV antibiotics for now Repeat CBC in a.m. Looks well overall Time Spent With Patient Time: Total time managing care of this patient today ____ minutes.
[2022-12-13] MEDS: 0.9 % Sodium Chloride Flush 3 ML SYRINGE IVFLUSH ×2 (15:33→23:28)
--- NOTE | 2022-12-13 15:51 | PC.NURSE ---
BULB drain flushed with 10 ml of NS,draining yellowish drainage
--- NOTE | 2022-12-13 20:51 | PC.NURSE ---
Bulb drain output 15 ml yellow drainage
[2022-12-14 03:05] VITALS: BP 110/62; PULSE 84; RESP 17; TEMP 36.7; O2SAT 96
[2022-12-14] MEDS: Piperacillin Sodium/Tazobactam 3.375 GM in 0.9 % Sodium Chloride 50 ML IV ×4 (05:04→22:20)
[2022-12-14] MEDS: oxyCODONE HCl Immed Release 5 MG TABLET 10 MG PO ×2 (05:41→19:50)
[2022-12-14 06:59] LABS: Hematocrit 34.2 % (42.0-52.0); Hemoglobin 11.3 g/dl (14.0-18.0); Mean Corpuscular Hemoglobin 29.8 pg (27.0-33.0); Mean Corpuscular Volume 90.2 fL (80.0-98.0); Mean Platelet Volume 12.2 fL (9.4-12.4); Platelet Count 177 X10*3/uL (160-400); Red Blood Count 3.79 X10*6/uL (4.60-5.80); Red Cell Distribution Width 13.1 % (11.0-16.0)
[2022-12-14 08:00] VITALS: BP 101/58; PULSE 82; RESP 18; TEMP 37.5; O2SAT 96
--- NOTE | 2022-12-14 08:16 | PM.PNGS ---
Subjective Subjective Date of Service: 12/14/22 Interval history: feels better after CT drain yesterday says tenderness mostly only on drain site tolerating full liquids Physical Exam Vital Signs: Vital Signs: Last Vital Signs Temp 99.5 F 12/14/22 08:00 Pulse 82 12/14/22 08:00 Resp 18 12/14/22 08:00 BP 101/58 L 12/14/22 08:00 Pulse Ox 96 12/14/22 08:00 O2 Del Method 12/14/22 08:00 BMI result Body Mass Index 28.1 Const: General: comfortable and no acute distress Resp: Effort & Inspection: normal respiratory effort Cardio: Rate: regular rate GI: Palpation (GI): Soft to palpation, not firm, Tenderness to palpation present (GI) (around drain site) and no guarding Objective Data Active Medications Acetaminophen (Acetaminophen 325 Mg Tablet) 650 mg PO Q6H PRN PRN Reason: Fever Last Admin: 12/13/22 07:40 Dose: 650 mg Documented By: ANA PAULA Piperacillin Sod/Tazobactam (Sod 3.375 gm/ Sodium Chloride) 50 mls @ 100 mls/hr IV Q6H [facility] Last Infusion: 12/14/22 05:38 Dose: 0 mls/hr Documented By: MARNIE Dextrose/Lactated Ringer's (D5lr) 1,000 mls @ 80 mls/hr IVCONT .[id number] [facility] Last Admin: 12/13/22 20:34 Dose: 80 mls/hr Documented By: WHITNEY Ibuprofen (Ibuprofen 400 Mg Tablet) 400 mg PO Q6H PRN PRN Reason: Fever and mild pain Last Admin: 12/11/22 18:02 Dose: 400 mg Documented By: ANG Morphine Sulfate (Morphine Sulfate 2 Mg/Ml Cartridge) 2 mg IVPUSH Q3H PRN; Protocol PRN Reason: Pain, Severe (Pain Scale 7-10) Last Admin: 12/10/22 21:17 Dose: 2 mg Documented By: TAMY Oxycodone HCl (Oxycodone Hcl Immed Release 5 Mg Tablet) 10 mg PO Q4H PRN PRN Reason: Pain, Moderate (Pain Scale 4-6 Last Admin: 12/14/22 05:41 Dose: 10 mg Documented By: MARNIE Sodium Chloride (0.9 % Sodium Chloride Flush 3 Ml Syringe) 3 ml IVFLUSH QSHIFT [facility] Last Admin: 12/13/22 23:28 Dose: 3 ml Documented By: MARNIE Labs 12/14/22 05:32 12/10/22 14:45 Labs: Laboratory Results - last 24 hr 12/14/22 05:32 MCV 90.2 MCH 29.8 MCHC 33.0 RDW 13.1 Plt Count 177 MPV 12.2 Absolute Nucleated RBC 0.000 Nucleated RBC % (auto) 0.0 Procedures Date of Service Date of Service: 12/14/22 Progress Note: A&P Assessment and plan (1) Appendiceal abscess: Status: Acute Assessment and Plan: CT drain done yesterday - clear fluid, not c/w abscess pt feels better fever pattern much improved WBC down signficantly looks well pain/tenderness much improved diet as tolerated will continue with IV abx for now Time Spent With Patient Time: Total time managing care of this patient today ____ minutes. Quality Stroke Does the patient have a stroke diagnosis?: No VTE Prior VTE?: No VTE Risk Level:: Medical - low VTE Device Contraindication: N/A - Device Ordered VTE Drug Contraindication: Treatment Not Indicated
--- NOTE | 2022-12-14 15:17 | MHC.CM.PN ---
EMR REVIEWED, PT W/APPENDICEAL ABSCESS, PER SURGICAL PT IMPROVING, FEVERS DECREASING AND DIET ADVANCED TO REGULAR TODAY, NO PLAN FOR D/C TODAY, ANTIC HOME NO SERVICES W/PT ARRANGING TRANSPORT SOON TOMORROW 12/15, CM WILL CONT TO FOLLOW.
[2022-12-14] MEDS: 0.9 % Sodium Chloride Flush 3 ML SYRINGE IVFLUSH (15:38)
[2022-12-14 15:40] VITALS: BP 115/68; PULSE 79; RESP 17; TEMP 37.3; O2SAT 99
[2022-12-14 20:00] VITALS: BP 115/62; PULSE 79; RESP 18; TEMP 36.9; O2SAT 97
[2022-12-15] MEDS: 0.9 % Sodium Chloride Flush 3 ML SYRINGE IVFLUSH ×2 (00:22→08:02)
[2022-12-15 04:00] VITALS: BP 130/71; PULSE 80; RESP 17; TEMP 36.7; O2SAT 96
[2022-12-15] MEDS: oxyCODONE HCl Immed Release 5 MG TABLET 10 MG PO (05:21)
[2022-12-15] MEDS: Piperacillin Sodium/Tazobactam 3.375 GM in 0.9 % Sodium Chloride 50 ML IV ×2 (05:24→10:45)
[2022-12-15 06:42] LABS: Hematocrit 36.3 % (42.0-52.0); Hemoglobin 11.7 g/dl (14.0-18.0); Mean Corpuscular HGB Conc 32.2 g/dl (31.0-36.0); Mean Corpuscular Volume 90.1 fL (80.0-98.0); Mean Platelet Volume 11.5 fL (9.4-12.4); Platelet Count 219 X10*3/uL (160-400); Red Blood Count 4.03 X10*6/uL (4.60-5.80); Red Cell Distribution Width 13.1 % (11.0-16.0); White Blood Count 10.1 X10*3/uL (4.8-10.8)
[2022-12-15 08:00] VITALS: BP 120/68; PULSE 78; RESP 18; TEMP 37.1; O2SAT 95
--- NOTE | 2022-12-15 09:23 | P.PNGS_ITS ---
Subjective Subjective Date of Service: 12/15/22 Interval history: States that he continues to feel better Much less pain and tenderness Says what bothers him more now is the drain itself Tolerating diet well Has been afebrile Physical Exam Vital Signs: Vital Signs: Last Vital Signs Temp 98.7 F 12/15/22 08:00 Pulse 78 12/15/22 08:00 Resp 18 12/15/22 08:00 BP 120/68 12/15/22 08:00 Pulse Ox 95 12/15/22 08:00 O2 Del Method 12/15/22 08:00 BMI result Body Mass Index 28.1 Const: General: comfortable and no acute distress Resp: Effort & Inspection: normal respiratory effort Cardio: Rate: regular rate GI: Other: Drain in place, very scanty clear output, tender on layer around the drain at this time Palpation (GI): Soft to palpation, not firm, nontender and no guarding Objective Data Active Medications Acetaminophen (Acetaminophen 325 Mg Tablet) 650 mg PO Q6H PRN PRN Reason: Fever Last Admin: 12/13/22 07:40 Dose: 650 mg Documented By: ANA PAULA Docusate Sodium (Docusate Sodium 100 Mg Capsule) 100 mg PO BEDTIME PRN PRN Reason: Constipation Piperacillin Sod/Tazobactam (Sod 3.375 gm/ Sodium Chloride) 50 mls @ 100 mls/hr IV Q6H [facility] Last Infusion: 12/15/22 06:17 Dose: 0 mls/hr Documented By: MATEUS Ibuprofen (Ibuprofen 400 Mg Tablet) 400 mg PO Q6H PRN PRN Reason: Fever and mild pain Last Admin: 12/11/22 18:02 Dose: 400 mg Documented By: ANG Morphine Sulfate (Morphine Sulfate 2 Mg/Ml Cartridge) 2 mg IVPUSH Q3H PRN; Protocol PRN Reason: Pain, Severe (Pain Scale 7-10) Last Admin: 12/10/22 21:17 Dose: 2 mg Documented By: TAMY Oxycodone HCl (Oxycodone Hcl Immed Release 5 Mg Tablet) 10 mg PO Q4H PRN PRN Reason: Pain, Moderate (Pain Scale 4-6 Last Admin: 12/15/22 05:21 Dose: 10 mg Documented By: MATEUS Sodium Chloride (0.9 % Sodium Chloride Flush 3 Ml Syringe) 3 ml IVFLUSH QSHIFT [facility] Last Admin: 12/15/22 08:02 Dose: 3 ml Documented By: STEPHANIE Labs 12/15/22 05:48 12/10/22 14:45 Labs: Laboratory Results - last 24 hr 12/15/22 05:48 MCV 90.1 MCH 29.0 MCHC 32.2 RDW 13.1 Plt Count 219 MPV 11.5 Absolute Nucleated RBC 0.000 Nucleated RBC % (auto) 0.0 Microbiology Microbiology Results: Microbiology 12/13/22 12:47 Gram Stain - Final Abscess Appendiceal Routine Culture - Preliminary Culture in progress. Anaerobic Culture - Preliminary Culture in progress. Procedures Date of Service Date of Service: 12/15/22 Progress Note: A&P Assessment and plan (1) Appendiceal abscess: Status: Acute Assessment and Plan: Status post CT drain He continues to improve well WBC is now normal Has had no fever for 48 hours Abdomen very benign Good oral intake Okay to DC home with drain Await path report Drainage did not appear to be purulent Will send home on antibiotics Follow-up next week in the office Time Spent With Patient Time: Total time managing care of this patient today ____ minutes. Quality Stroke Does the patient have a stroke diagnosis?: No VTE Prior VTE?: No VTE Risk Level:: Medical - low VTE Device Contraindication: N/A - Device Ordered VTE Drug Contraindication: Treatment Not Indicated
--- NOTE | 2022-12-15 12:34 | MHC.CM.PN ---
[facility] accepted Patient; CM will follow.
--- NOTE | 2022-12-15 12:39 | MHC.CM.PN ---
Per MD, Patient will be medially cleared for dc to home today with new VNA; [facility] accepted Patient.
--- NOTE | 2022-12-15 13:31 | P.F2F_ITS ---
Service Date Service Date: 12/15/22 Encounter Date of encounter: 12/15/22 Reasons for Services Signs and symptoms assessed: abdominal pain, abdominal tenderness, ARIANNA drain output, WBC count Reason for correction: wound care (drain care) Homebound: Leaving the home is medically contraindicated at this time without the asist of a device and/or another person due th the listed conditions above and below. Reason homebound: weakness related to hospital stay and unable to drive Homebound supporting statement: Mr. Diamond was admitted for treatment of perforated appendicitis, sepsis. He underwent CT guided drainage for appendiceal abscess and still has the drain in place. He will need VNA for drain care. Certification: Based on the above findings, I certify that this patient is confined to the home and needs intermittent correction care, physical therapy and/or speech therapy, or continues to need occupational therapy. The patient is under my care, and I have initiated the establishment of the plan of care. The patient will be followed by a physician who will periodically review the plan of care. Time Spent With Patient Time: Total time managing care of this patient today ____ minutes.
--- NOTE | 2022-12-15 13:34 | PM.DS ---
DS: Providers Provider Date of Service: 12/15/22 Date of admission: 12/10/22 16:38 Date of discharge: 12/15/22 Primary care physician: JESSICA Cleaning Attending physician on admission: Louie Nair Attending physician on discharge: Louie Nair DS: Diagnosis Discharge Diagnosis (1) Appendiceal abscess: Status: Acute DS: Summary Hospital Course Hospital Course: HPI AT ADMISSION: Terrence Diamond is a 37 year old male who came to the ER today because of pain on the right lower flank area.? He says that this started late last night.? He said that he was perfectly fine throughout the day and did not have any pain or any GI symptoms.? His pain had persisted throughout the night so he came to the emergency room today.?He did not have any vomiting or nausea.? He does not have any fever.? He feels well overall.? He denies any diarrhea.? He denies any other recent episodes of pain. Work up included a CAT scan which showed a well-defined abscess, about 6.1 cm in widest diameter adjacent to the appendix consistent with a perforated appendicitis without free air and no other significant inflammatory changes surrounding this area. His WBC count was normal. HOSPITAL COURSE: He was admitted to the surgical service for further treatment of perforated appendicitis with abscess. He was overall non toxic appearing with only mild tenderness. He was scheduled for CT drainage and started on IV zosyn. He was kept NPO, on IVF. He had an uncomplicated hospital stay. His WBC did trend up and he began spiking fevers but overall looked clinically well without an unchanged abdominal exam. CT drainage was performed on 12/13/22. A complex cystic multiloculated fluid collection was noted in the right lower quadrant and a drain was left in place. The aspirated fluid was nonpurulent and clearish and sent for cultures. He remained inpatient and completed a 6 day course of IV zosyn. His pain improved and had less abdominal tenderness. WBC normalized and he remained afebrile >24h. His drain continued with more clearish output and remained nonpurulent however initial gram stain was positive for GNR and this was kept in place. He was discharged on 12/15/22 in stable condition on a course of PO Augmentin for 7 days with [facility] services. He is to follow up in the office in 1 week for possible drain removal. Status at Discharge Functional status at discharge: independent ambulation Overall status at discharge: patient is progressing back to baseline Time Spent with Patient Time attestation: Total time managing care of this patient today ____ minutes. Discharge coordination time: Less than 30 minutes Quality: Safe Use of Opioids Does Pt have an Active Cancer Diagnosis on the Problem List?: No Quality: Stroke Does the patient have a stroke diagnosis?: No Physical Exam Vital Signs: Vital Signs: Last Vital Signs Temp 98.7 F 12/15/22 08:00 Pulse 78 12/15/22 08:00 Resp 18 12/15/22 08:00 BP 120/68 12/15/22 08:00 Pulse Ox 95 12/15/22 08:00 O2 Del Method 12/15/22 08:00 BMI result Body Mass Index 28.1 Const: General: comfortable, no acute distress and alert Resp: Effort & Inspection: normal respiratory effort GI: Other: drain nonpurulent Inspection: No distended Palpation (GI): Soft to palpation, Tenderness to palpation present (GI) (very mild at drain site), no guarding and not rigid DS: Data Data Completed and Pending Pending studies at discharge: Pending at discharge 12/13/22 13:14 Cytology [PTH] Routine Labs on day of discharge: Laboratory Results - last 24 hr 12/15/22 05:48 WBC 10.1 RBC 4.03 L Hgb 11.7 L Hct 36.3 L MCV 90.1 MCH 29.0 MCHC 32.2 RDW 13.1 Plt Count 219 MPV 11.5 Absolute Nucleated RBC 0.000 Nucleated RBC % (auto) 0.0 Preliminary micro results at discharge 12/13/22 12:47 Routine Culture - Preliminary Abscess Appendiceal Gram negative mark Anaerobic Culture - Preliminary No growth to date. Discharge Plan Discharge Anticipated Discharge Date/Time: 12/15/22 12:26 Patient Disposition: Home Health Service Discharge Diagnosis: perforated appendicitis Referrals: [facility] Simental [Outside] - 1 Week Louie Nair MD [Physician] - 1 Week Myriam Roper FNP [Primary Care Provider] - 1 Week Discharge Medications: New amoxicillin-pot clavulanate 875-125 mg tablet 1 tab PO BID Qty: 14 0RF oxycodone 5 mg tablet 5 mg PO Q4H PRN (Reason: pain) Qty: 10 0RF Rx Instructions: Partial Fill upon patient request. Discharge Orders: Discharge Order (Routine); Ordered 12/15/22 Ordered By: Jacki Ibanez Diet: Advance to usual diet Activity on Discharge: As tolerated Stand Alone Forms: Patient Portal Discharge page Activity Restrictions/Additional Instructions: Follow up in office in a week with Dr. Nair. ([phone]) Drain care: empty daily and as needed. Record amount and color. Please bring to appointment. Call Your Doctor If: ? ? -Your temperature exceeds 101.5? F? ? ? -You experience excessive pain or swelling ? ? -You have an unexpected reaction to medication ? ? -You experience continued vomiting/nausea Care Plan Goals: Drain removal. Return to baseline health and gradual return to activity. Health Concerns: inraabdominal fluid collection Plan of Treatment: IV abx transitioned to PO abx CT drainage Drain care F/u in office in 1 week Assessment: Doing well
--- NOTE | 2022-12-15 14:02 | MHC.CM.PN ---
DC Summary and face to face have been sent to [facility] via [employer]; Ruth is aware of today's dc.
== END 2022-12-15 14:03 | disposition home health service (06) | DRG 225 ==
LOC: HO.ED 16:26 → HO.EDOVER 16:58 → HO.S3 19:34
PROVIDERS: Nurse Practitioner Family; Radiology Diagnostic Radiology; Admitting Provider Surgery; Emergency Provider Emergency Medicine; PCP Nurse Practitioner Family; Visit Provider Surgery
PROC: 0D9J30Z Drainage of Appendix with Drainage Device, Percutaneous Approach (ICD-10-PCS; principal; 2022-12-13 11:00)
DX: K35.33 Acute appendicitis with perforation, localized peritonitis, and gangrene, with abscess (principal); Z20.822 Contact with and (suspected) exposure to COVID-19
CPT/HCPCS: 36415; 49406; 74177; 80048; 80076; 81003; 83690; 85025; 85027; 85610; 87070; 87073; 87186; 87205; 87635; 88112; 88305; 99285; C1729; J2270; J2543; Q9967

== ENCOUNTER → 2022-12-16 12:56 | Outpatient (BNVA) | payer BC, SELFPAY | PROVIDERS: PCP Nurse Practitioner Family; Visit Provider Surgery | DX: Z13.89 Encounter for screening for other disorder (principal) ==

== ENCOUNTER → 2022-12-22 13:51 | Outpatient (BNVA) | payer BC, SELFPAY | PROVIDERS: PCP Nurse Practitioner Family; Visit Provider Surgery | DX: Z13.89 Encounter for screening for other disorder (principal) ==

== ENCOUNTER 2022-12-30 14:14 | Outpatient (REF) | payer BC, SELFPAY ==
--- NOTE | ~2022-12-30 | CT_ITS ---
EXAMINATION: CT ABDOMEN AND PELVIS WITHOUT CONTRAST CLINICAL INFORMATION: Acute appendicitis with perforation and localized peritonitis. COMPARISON: 12/13/2022 and 12/10/2022 TECHNIQUE: Multidetector volumetric imaging was performed from the superior aspect of the liver through the pubic symphysis. Sagittal and coronal reformatted images were obtained on the technologist's workstation. This CT examination was performed using dose optimization techniques as appropriate, variously including the following: *Automated exposure control *Adjustment of mA and/or kV according to patient size (this includes techniques or standardized protocols for targeted exams where dose is matched to indication/reason for exam; i.e. extremities or head) *Use of iterative reconstruction technique DLP: 486 mGy-cm FINDINGS: LUNG BASES: The visualized lung bases are unremarkable. No pleural or pericardial effusion. LIVER, GALLBLADDER, AND BILIARY TREE: The liver is normal in size, shape, and attenuation. No focal hepatic lesion or biliary ductal dilatation is present. The gallbladder is unremarkable with no evidence of radiopaque gallstones, gallbladder wall thickening, or obvious pericholecystic inflammatory changes. PANCREAS: Unremarkable. No mass or peripancreatic inflammatory change. SPLEEN: Unremarkable. ADRENAL GLANDS: Unremarkable. KIDNEYS AND URETERS: The kidneys are normal in size, shape, and attenuation. No hydronephrosis, hydroureter, or calculi seen. No perinephric stranding. There is a 1.3 cm simple cyst within the anterior interpolar region of the right kidney which does not require follow-up. BLADDER: Decompressed. GASTROINTESTINAL TRACT: No free air or free fluid is identified. No dilated loops of large or small bowel are seen. No pericolonic inflammatory changes seen. The periappendiceal rounded collection with some high density material around the rim which leads to the region of the appendix now measures approximately 4.5 x 3.6 x 6.4 cm in size. The drain has been removed. Predrainage on study of 12/13/2022 the collection measured approximately 6.0 x 4.7 cm in size. This appears to be a complex cystic mass. In the region of the appendix there are small calcific densities which may represent phleboliths. This region of the appendix measures 1.5 cm in diameter. There has been improvement in the pericecal and periappendiceal fat stranding. No new fluid collections identified. ABDOMINAL WALL: No significant hernia is appreciated. LYMPH NODES: There is a 1 cm distal right iliac chain lymph node. There is 1 cm short axis grouping of lymph nodes within the mesentery adjacent to the right colon. VASCULAR: Unremarkable. PELVIC VISCERA: Unremarkable. OSSEOUS STRUCTURES: There is spina bifida occulta S1. No suspicious destructive bony lesions identified. CT/CT abdomen pelvis wo IV con IMPRESSION: Persistent periappendiceal complex collection with enlarged appendix and probable appendicoliths. There has been improvement in adjacent fat stranding. No free fluid collection identified. Fleischner guidelines were followed.
== END 2022-12-30 14:15 | disposition home or self-care (01) ==
LOC: HO.CT 14:14
PROVIDERS: PCP Nurse Practitioner Family; Visit Provider Surgery
DX: K35.33 Acute appendicitis with perforation, localized peritonitis, and gangrene, with abscess (principal)
CPT/HCPCS: 74176

== ENCOUNTER → 2023-01-09 13:45 | Outpatient (BNVA) | payer BC, SELFPAY | PROVIDERS: PCP Nurse Practitioner Family; Referring Provider Nurse Practitioner Family; Visit Provider Surgery | DX: Z13.89 Encounter for screening for other disorder (principal) ==

== ENCOUNTER → 2023-01-25 14:30 | Outpatient (BNVA) | payer BC, SELFPAY | PROVIDERS: PCP Nurse Practitioner Family; Visit Provider Surgery | DX: Z13.89 Encounter for screening for other disorder (principal) ==

== ENCOUNTER 2023-02-02 14:15 | Outpatient (REF) | payer BC, MEDICAID, SELFPAY ==
[2023-02-04 10:03] LABS: CA-125 17 U/mL (<35); Carbohydrate Antigen 19-9 26 U/mL (<34)
== END 2023-02-02 14:16 | disposition home or self-care (01) ==
LOC: HO.LAB 14:15
PROVIDERS: PCP Nurse Practitioner Family; Visit Provider Surgery
DX: K35.33 Acute appendicitis with perforation, localized peritonitis, and gangrene, with abscess (principal)
CPT/HCPCS: 36415; 82378; 86301; 86304

== ENCOUNTER 2023-03-03 07:26 | Inpatient (IN) | payer BC, MEDICAID, SELFPAY ==
--- NOTE | 2023-03-02 11:45 | HO.ANESPROP2 ---
Documented by User: Maritza Singletary NP 03/02/23 11:47 HPI - Anesthesia Eval Consult details Narrative: 37yo M for Right Hand Assist Colon Resection Laparoscopic,poss open C admit 11/2022 with perforated appendix with abcess. Drain placed (since D/C'd) and abx. PMF Active Problems Active Problems: All Active Problems (Updated 12/10/22 @ 16:33 by Louie Nair MD) Acute perforated appendicitis (Acute) Appendiceal abscess (Acute) Past Medical History Medical History Appendiceal abscess Surgical History Surgical History H/O hand surgery Social History Social History Household Members: Family Housing: House Do you presently have visiting nurse or other home services: No Patient Tobacco Use Status: Never used Tobacco Use of substances other than those prescribed or required for medical reasons: No Are you DNR?: No Advance Directives: No service: No Current occupational status: employed Meds Allergies Allergy/AdvReac Type Severity Reaction Status Date / Time No Known Allergies Allergy Verified 03/01/23 10:02 Home Medications Medication Instructions Recorded Confirmed Last Taken Type amoxicillin 875 mg-potassium 1 tab PO BID 03/02/23 03/02/23 Unknown History clavulanate 125 mg tablet nystatin 100,000 unit/gram topical 1 appl topical BID-TID PRN Rash 03/02/23 03/03/23 Unknown History cream oxycodone 5 mg tablet 5 mg PO Q4H PRN pain 03/02/23 03/02/23 Unknown History Exam Exam Date and Time: March 02, 2023 1145 Assessment and Plan Assessment Anesthesia Assessment: Chart Reviewed Documented by User: Piyush Michele MD 03/03/23 09:36 [facility] Past Medical History Medical History Appendiceal abscess Family History Family history of problems with anesthesia: No Surgical History Surgical History H/O hand surgery History of Problems with Anesthesia: No Social History Social History Household Members: Family Housing: House Do you presently have visiting nurse or other home services: No Patient Tobacco Use Status: Never used Tobacco Use of substances other than those prescribed or required for medical reasons: No Are you DNR?: No Advance Directives: No service: No Current occupational status: employed Meds Allergies Allergy/AdvReac Type Severity Reaction Status Date / Time No Known Allergies Allergy Verified 03/01/23 10:02 Home Medications Medication Instructions Recorded Confirmed Last Taken Type amoxicillin 875 mg-potassium 1 tab PO BID 03/02/23 03/02/23 Unknown History clavulanate 125 mg tablet nystatin 100,000 unit/gram topical 1 appl topical BID-TID PRN Rash 03/02/23 03/03/23 Unknown History cream oxycodone 5 mg tablet 5 mg PO Q4H PRN pain 03/02/23 03/02/23 Unknown History Assessment and Plan Assessment Anesthesia Assessment: Anesthesia Plan Discussed Final Anesthetic Review Family History of Problems with Anesthesia: No History of Problems with Anesthesia: No NPO: Yes ASA Class: I Final Preanesthetic Review: No Changes in Pt Med Stat, Meds/Allgs Chart Reviewed, Consent Obtained/Reviewed and Anes Risks/Benef Reviewed Patient Risk: Low Procedure Risk: Low Anesthetic Plan Anesthetic Plan: GA and Agree w/ Assess. and Plan Disposition: Standard PACU
[2023-03-03] VITALS (12 sets, daily range): BP systolic 112–129; BP diastolic 67–79; PULSE 73–82; RESP 14–19; TEMP 36.7–37.2; O2SAT 97–100; BMI 27.3
--- NOTE | 2023-03-03 07:56 | PHA.MEDREC ---
Pharmacy Consult ? Medication Reconciliation Pharmacy has reviewed the medication reconciliation completed by nursing.
--- NOTE | 2023-03-03 08:21 | MHC.SHP ---
Pre-Procedural Eval Section A Date of Service: 03/03/23 Section B Chief Complaint: Appendiceal collection Details of Present Illness: had fluid collection around the appendix, non purulent on CT drainage; persistent on follow-up CT scan Relevant Family History (Specify if Yes): No Relevant Social History: None Present Medications: see Short Stay Collaborative assessment Medical History: No relevant PMH Allergies: Allergies Allergy/AdvReac Type Severity Reaction Status Date / Time No Known Allergies Allergy Verified 03/01/23 10:02 Review of Systems Sugical H&P ROS: Negative: Constitution, Cardiovascular, Respiratory, Neurological, Psychiatric, Hem-Onc, Allergic/Immunologic, Gastrointestinal, Genitourinary, Musculoskeletal, Integumentary, Endocrine and Eyes/Ears/Nose/Throat Exam Surgical H&P Exam: Normal: HEENT, Normal: Heart, Normal: Lungs, Normal: Extremities, Normal: Abdomen, Normal: Skin and Normal: Neurological Plan Diagnosis/Plan: Unchanged I have reviewed the history and physical and performed a pertinent physical examination on my patient. No changes have occurred unless specified. Time Spent With Patient Time: Total time managing care of this patient today ____ minutes.
[2023-03-03 08:52] LABS: Hematocrit 39.9 % (42.0-52.0); Hemoglobin 13.2 g/dl (14.0-18.0); Mean Corpuscular HGB Conc 33.1 g/dl (31.0-36.0); Mean Corpuscular Hemoglobin 29.1 pg (27.0-33.0); Mean Corpuscular Volume 88.1 fL (80.0-98.0); Mean Platelet Volume 11.1 fL (9.4-12.4); Platelet Count 232 X10*3/uL (160-400); Red Blood Count 4.53 X10*6/uL (4.60-5.80); Red Cell Distribution Width 13.1 % (11.0-16.0); White Blood Count 8.2 X10*3/uL (4.8-10.8)
[2023-03-03 09:15] LABS: Anion Gap 9 (12-20); Blood Urea Nitrogen 13 mg/dL (9-16); Calcium 8.8 mg/dL (8.4-10.2); Carbon Dioxide 29 mmol/L (22-29); Chloride 106 mmol/L (96-108); Creatinine Clr Calc Pharmacy 122.1; Estimated Glomerular Filt Rate > 60; Glucose Fasting 99 mg/dL (60-99); Potassium 4.5 mmol/L (3.3-5.1); Sodium 139 mmol/L (135-145)
--- NOTE | 2023-03-03 09:16 | PC.NURSE ---
Surgery booked with laterality of right. Surgeon Dr Nair asked to nathan patient on right. Surgeon refused - stating marked is for paired organs you only have one colon. RN explained it is how the surgery is booked. Surgeon refused to nathan, left bedside.
--- NOTE | 2023-03-03 12:22 | P.OP_ITS ---
Operative Note Operative Note Date of Service: 03/03/23 Narrative: Preop diagnosis: Shira appendiceal fluid collection, with concern from neoplastic process Postop diagnosis: The same, with very dense inflammatory changes surrounding the posterior aspect of the cecum along base of the appendix Procedure: Hand assisted laparoscopic right colon resection Surgeon: Louie Nair MD assistant superintendent for curriculum: PARIS Ibanez The patient is a 37-year-old male, who had been admitted last November, because of abdominal pain with a fluid collection around the appendix suggestive of an abscess. However, CT drainage not reveal any pus and there was note of what appeared to be mucinous fluid aspirated. I had repeated the CT scan a month after with a similar looking fluid collection. These images were reviewed with the radiologist. There was a concern for a neoplastic process in view of the none purulent aspirate, and persistent fluid collection. I explained to the patient therefore that it would be best to proceed with right colon resection. Understood the planned procedure. He was aware of the risks, benefits, and alternatives. His was involved with discussion. He was brought to the operating room. Placed supine under general anesthesia via endotracheal tube. A Christensen catheter was inserted. The abdomen was prepped and draped in the usual sterile fashion. A surgical time-out was done. The patient received Cefotan 2 g IV preoperatively I made a short midline long regional incision at the umbilical area using blade 15. This was carried down with electrocautery through the full-thickness of the skin subcutaneous fat to the fascia. The fascia was incised. The peritoneum was entered. The Hans wound retractor was positioned. GelPort along with the insufflating port was attached. We insufflated to a pressure of 15 mm hg. The 10 mm 30 degree scope were inserted. Be examine the peritoneal cavity. Laparoscopic visualization, I proceeded to insert a 5/12 mm port in the epigastric area. A 5 mm ports introduced a small incision in the left upper quadrant. The patient was placed in the head-down and the [id number] position. I inserted my hand through the GelPort. I reflected all the bowel loops away from the right lower quadrant. I was able to visualize the cecum. Lateral and posterior to this was note of a very dense induration there were poor planes in the retrocecal area. I therefore proceeded to mobilize the border distal right colon 1st by dividing the white line of Toldt using the LigaSure. I proceeded to continue with dissection around the hepatic flexure. I divided the hepatic colic ligaments although weight past the midline of the transverse colon. I was able to visualize the duodenum and this was our medial limit of our dissection. I continued to divide fine ligamentous attachments the retroperitoneal surface of the colon and its mesentery until I felt that we had adequate mobilization of the panic flexure I then proceeded to mobilize the cecum along with the indurated retrocecal area. I divided the ligamentous attachments at the ileocecal junction. I continue with this dissection distally. I did a combination of blunt dissection with my finger tip as well as with the LigaSure continue to separate the cecum and the phlegmonous, inflamed and densely indurated cecal area off of the retroperitoneum. This part of the procedure took an extended period of time as we had to proceed slowly in view of the absence of any good planes along with the dense inflammatory changes. I was able to eventually separate the her cecum off of the retroperitoneum. I tested this by bringing this up to the abdominal wall and it appeared that we had adequate mobilization of the entire right colon all with the transverse colon. I therefore released the GelPort and brought up the cecum through the GelPort. We were able to bring this up without difficulty.. However the more distal right colon appeared to be stuck and adherent to a lot of omentum and we could not bring this out through the incision. I therefore we placed the bowel loops back into the peritoneal cavity and insufflated and replace the GelPort. I examined for any good planes to separate the omentum from the right colon and hepatic flexure. However, as we proceeded along the omentum, the planes became more poorly defined so I decided that I would do this part of the procedure through the incision. I desufflated and brought out this segment of the distal right colon along with the attached, densely adherent omentum. I proceeded to gently separate this omentum off of the right colon and the hepatic flexure using a combination of electrocautery as well as the LigaSure, with care being taken so as to ensure that we were not entering the planes of the mesentery posteriorly. Eventually we were able to separate this omentum from the right colon. I was able to therefore bring up the entire right colon along with hepatic flexure to the incision. I chose my point of dissection in the distal ileum and created a mesenteric defect. I transected this distal ileum 10 mm from the cecal valve using a KELLEY 60 mm stapler. I divided the mesentery of the terminal ileum using LigaSure all the way to the palpable ileocolic pedicle. I. I then proceeded to divide the right colon at hepatic flexure. I created a mesenteric window and used the KELLEY 60 mm stapler to divide this. I used the LigaSure as well to divide the attached mesentery distal towards the pedicle. I stopped at the pedicle. I made sure that with division of the mesentery, we were including adequate lymphatic basin of the right colon along the pedicle. I dissected the ileocolic pedicle to thin this out using Metzenbaum scissors as well as electrocautery. I then applied a right angle clamp and divided this above the clamp. The entire right colon along with the mesentery was therefore and sent for immediate gross exam. I doubly tied the pedicle using Polysorb 2-0 ties. This appeared to be hemostatic. I then proceeded to do the [id number] anastomosis. I aligned the divided segment of the hepatic flexure in the terminal ileum. I opened up the staple line to into the lumen and I positioned each arm of the KELLEY 60 mm stapler at the anti mesenteric border of each lumen. I made sure that there was no mesentery nor lobe trapped between the staple lines before this her fired. The stapler was then fired to create our [id number] anastomosis. I completed the anastomosis by closing the enterotomy with a TA 60 mm stapler. There was some bleeding from the staple line which I controlled with multiple [id number] Polysorb 3-0 sutures. I imbricated the staple line on the enterotomy with seromuscular Polysorb 3-0 sutures. I examined the staple line and this all appeared to be intact without any evidence of any ischemia. There was no tension on staple line. I observed for hemostasis. The divided mesentery appeared hemostatic. After examining the anastomotic site well, I replaced this back into the peritoneal cavity. I re-examined laparoscopically as well. There was no evidence of any bowel injury the bleeding. I irrigated copiously and suctioned out the irrigant fluid. Once hemostasis was confirmed, proceeded to then bring down the omentum to the side on top of the anastomosis. I then closed the fascia of the midline incision with a running Maxon 1 stitch. I examined this suture line scopic early there was no bowel or omentum caught in the closure. I then removed all ports. I irrigated the subcutaneous layer of the incisions. I closed all skin incisions with skin renate. All incisions were infiltrated with Marcaine 0.5% for postop analgesia. Dressings were applied and the procedure was completed The patient tolerated procedure well. There were no immediate complications. Initial and final counts of sponges and instruments were correct. Estimated blood loss was about 600 cc. The patient was extubated without difficulty and transferred to the recovery room with stable vital signs.
[2023-03-03] MEDS: HYDROmorphone HCl 0.5 MG/0.5 ML SYRINGE IVPUSH ×2 (12:30→12:46)
[2023-03-03] MEDS: Morphine Sulfate 4 MG/ML CARTRIDGE IVPUSH ×3 (13:50→23:52)
[2023-03-03] MEDS: Lactated Ringers 1,000 ML 80 ML IVCONT (14:10)
--- NOTE | 2023-03-03 15:06 | PM.EVENT ---
Event Note Date of Service: 03/03/23 Event Note: Seen postop Underwent hand assisted laparoscopic right colon resection earlier for anderson appendiceal fluid Question of neoplastic process versus perforated appendicitis Appears to have adequate pain control Stable vital signs Good urine output Dressings dry Continue pain management and both parents at bedside - discussed procedure and explained plan Time Spent With Patient Time: Total time managing care of this patient today ____ minutes.
[2023-03-03] MEDS: oxyCODONE HCl Immed Release 5 MG TABLET 10 MG PO ×2 (15:17→22:36)
[2023-03-03] MEDS: Acetaminophen 1,000 MG/100 ML PIGGYBACK 400 MG IV ×2 (17:46→23:53)
[2023-03-04] MEDS: Lactated Ringers 1,000 ML 80 ML IVCONT ×2 (02:32→14:50)
[2023-03-04 03:02] VITALS: BP 110/65; PULSE 62; RESP 18; TEMP 36.4; O2SAT 97
[2023-03-04] MEDS: Morphine Sulfate 4 MG/ML CARTRIDGE IVPUSH ×3 (04:05→21:01)
[2023-03-04] MEDS: oxyCODONE HCl Immed Release 5 MG TABLET 10 MG PO ×2 (05:50→23:11)
[2023-03-04] MEDS: Acetaminophen 1,000 MG/100 ML PIGGYBACK 400 MG IV ×4 (05:51→23:13)
[2023-03-04 06:19] LABS: MANUAL DIFF FLAG NO
[2023-03-04 06:27] LABS: Basophils Percent Auto 0.2 % (0-2); Eosinophils Percent Auto 0.1 % (0-4); Hematocrit 34.5 % (42.0-52.0); Hemoglobin 11.3 g/dl (14.0-18.0); Imm Gran Pct Auto 0.8 % (0.0-0.4); Lymphocytes Absolute Auto 2.1 X10*3/uL (1.2-4.9); Lymphocytes Percent Auto 17.7 % (20-40); Mean Corpuscular HGB Conc 32.8 g/dl (31.0-36.0); Mean Corpuscular Hemoglobin 29.2 pg (27.0-33.0); Mean Corpuscular Volume 89.1 fL (80.0-98.0); Mean Platelet Volume 11.2 fL (9.4-12.4); Monocytes Absolute Auto 0.9 X10*3/uL (0.1-1.2); Monocytes Percent Auto 7.8 % (2-11); Neutrophils Absolute Auto 8.7 x10*3/uL (2.0-8.3); Neutrophils Percent Auto 73.4 % (45-73); Platelet Count 218 X10*3/uL (160-400); Red Blood Count 3.87 X10*6/uL (4.60-5.80); Red Cell Distribution Width 13.2 % (11.0-16.0); White Blood Count 11.8 X10*3/uL (4.8-10.8)
[2023-03-04 06:41] LABS: Anion Gap 10 (12-20); Blood Urea Nitrogen 10 mg/dL (9-16); Calcium 8.2 mg/dL (8.4-10.2); Carbon Dioxide 27 mmol/L (22-29); Chloride 101 mmol/L (96-108); Creatinine Clr Calc Pharmacy 135.3; Estimated Glomerular Filt Rate > 60; Glucose Fasting 117 mg/dL (60-99); Potassium 3.9 mmol/L (3.3-5.1); Sodium 134 mmol/L (135-145)
[2023-03-04 08:00] VITALS: BP 131/76; PULSE 85; RESP 17; TEMP 36.9; O2SAT 97
--- NOTE | 2023-03-04 09:52 | HO.POSTANES ---
Post Anesthesia Evaluation Post Anesthesia Evaluation Vital Signs: Vital Signs Temp Pulse Resp BP Pulse Ox O2 Del Method 03/04/23 08:00 98.4 F 85 17 131/76 97 Room Air 03/04/23 03:02 97.5 F 62 18 110/65 97 Room Air Anesthesia: General Endotracheal-GETA Mental Status: Awake Pain Control: Satisfactory Nausea/Vomiting: None Hydration: Adequate Anesthesia-Related Issues: No Anes. Related Issues
--- NOTE | 2023-03-04 09:59 | PC.NURSE ---
10CC REMOVED FROM F/C BALLOON. CATHETER REMOVED. 1200CC OF CLEAR YELLOW URINE IN ISAACS BAG CHARTED. WILL MONITOR FOR PATIENT ABILITY TO URINATE DURING SHIFT.
--- NOTE | 2023-03-04 10:20 | PM.PNGS ---
Subjective Subjective Date of Service: 03/04/23 Patient reports: no new complaints, still having pain, no flatus and no bowel movement Interval history: The patient is seen in coverage Patient denies any chest pain, difficulty breathing, shortness of breath. He reports fair amount of belching but no vomiting. He is taking liquids but not passing any flatus or stool. He still has a Christensen in place and has been out of bed. Physical Exam Vital Signs: Vital Signs: Last Vital Signs Temp 98.4 F 03/04/23 08:00 Pulse 85 03/04/23 08:00 Resp 17 03/04/23 08:00 BP 131/76 03/04/23 08:00 Pulse Ox 97 03/04/23 08:00 O2 Del Method Room Air 03/04/23 08:00 O2 Flow Rate 2.0 03/03/23 15:10 BMI result Body Mass Index 27.3 On exam he is nontoxic and in good spirits Abdominal dressing is clean, dry and intact Appropriate incisional pain is noted and the patient does not have peritoneal signs on exam Objective Data Active Medications Al Hydroxide/Mg Hydroxide (Magnesium Hydrox/Alum Hydrox 30 Ml Oral.Susp) 30 ml PO Q6H PRN PRN Reason: Heartburn Acetaminophen (Ofirmev) 1,000 mg in 100 mls @ 400 mls/hr IV Q6H [facility] Last Infusion: 03/04/23 06:24 Dose: 0 mls/hr Documented By: NATHAN Lactated Ringer's (Lr) 1,000 mls @ 80 mls/hr IVCONT .[id number] [facility] Last Admin: 03/04/23 02:32 Dose: 80 mls/hr Documented By: NATHAN Melatonin (Melatonin 3 Mg Tablet) 6 mg PO BEDTIME PRN PRN Reason: Insomnia Morphine Sulfate (Morphine Sulfate 4 Mg/Ml Cartridge) 4 mg IVPUSH Q4H PRN; Protocol PRN Reason: Pain, Severe (Pain Scale 7-10) Last Admin: 03/04/23 08:08 Dose: 4 mg Documented By: JORGE Oxycodone HCl (Oxycodone Hcl Immed Release 5 Mg Tablet) 5 mg PO Q4H PRN PRN Reason: Pain, Moderate(Pain Scale 4-6) Oxycodone HCl (Oxycodone Hcl Immed Release 5 Mg Tablet) 10 mg PO Q4H PRN PRN Reason: Pain, Severe (Pain Scale 7-10) Last Admin: 03/04/23 05:50 Dose: 10 mg Documented By: NATHAN Sodium Chloride (0.9 % Sodium Chloride Flush 3 Ml Syringe) 3 ml IVFLUSH [facility] Last Admin: 03/04/23 07:46 Dose: Not Given Documented By: JORGE Non-Admin Reason: IV Running Sodium Chloride (0.9 % Sodium Chloride Flush 3 Ml Syringe) 3 ml IVFLUSH [facility] Last Admin: 03/04/23 07:47 Dose: Not Given Documented By: JORGE Non-Admin Reason: IV Running Labs 03/04/23 06:04 03/04/23 06:04 Labs: Laboratory Results - last 24 hr 03/04/23 03/04/23 06:04 06:04 MCV 89.1 MCH 29.2 MCHC 32.8 RDW 13.2 Plt Count 218 MPV 11.2 Immature Gran % (Auto) 0.8 H Neut % (Auto) 73.4 H Lymph % (Auto) 17.7 L [place] % (Auto) 7.8 Eos % (Auto) 0.1 Baso % (Auto) 0.2 Lymph # (Auto) 2.1 [place] # (Auto) 0.9 Eos # (Auto) 0.0 Baso # (Auto) 0.0 Abs Immat Gran (auto) 0.10 H Absolute Neuts (auto) 8.7 H Absolute Nucleated RBC 0.000 Nucleated RBC % (auto) 0.0 Anion Gap 10 L Estim Creat Clear Calc 135.3 Estimated GFR > 60 Fasting Glucose 117 H Calcium 8.2 L D Procedures Date of Service Date of Service: 03/04/23 Progress Note: A&P Assessment and plan (1) Acute perforated appendicitis: Status: Acute (2) Appendiceal abscess: Status: Acute Plan DC Christensen per protocol Encourage out of bed/ambulation Await bowel function. Minimize p.o. liquids until flatus or bowel movement. Time Spent With Patient Time: Total time managing care of this patient today ____ minutes. Quality Stroke Does the patient have a stroke diagnosis?: No VTE Prior VTE?: No VTE Risk Level:: Medical - low VTE Device Contraindication: N/A - Device Ordered VTE Drug Contraindication: Treatment Not Indicated
[2023-03-04] MEDS: oxyCODONE HCl Immed Release 5 MG TABLET PO ×2 (12:00→17:51)
--- NOTE | 2023-03-04 12:44 | MHC.CM.PN ---
PT REPORTS HE LIVES WITH HIS AND IS INDEPENDENT WITH CARE PT HAS NO DME AND NO SERVICES COPY OF HCP REQUESTED HE IS COVID GUS PCP: RANDAL SCHRADER CURRENT DCP: HOME NO SERVICES VIA PRIVATE TRANSPORT
[2023-03-04 15:50] VITALS: BP 122/78; PULSE 90; RESP 18; TEMP 37.1; O2SAT 96
[2023-03-05] MEDS: Lactated Ringers 1,000 ML 80 ML IVCONT ×2 (02:30→15:23)
[2023-03-05 02:31] VITALS: BP 115/70; PULSE 86; RESP 18; TEMP 37.1; O2SAT 94
[2023-03-05] MEDS: oxyCODONE HCl Immed Release 5 MG TABLET 10 MG PO ×3 (04:40→21:37)
[2023-03-05] MEDS: Acetaminophen 1,000 MG/100 ML PIGGYBACK 400 MG IV ×4 (05:53→23:24)
[2023-03-05 07:58] VITALS: BP 113/74; PULSE 86; RESP 18; TEMP 36.4; O2SAT 95
--- NOTE | 2023-03-05 08:28 | PM.PNGS ---
Subjective Subjective Date of Service: 03/05/23 Patient reports: still having pain, no flatus and no bowel movement Interval history: The patient is seen in coverage and is postop day 2. He continues to deny any flatus and reports he still needing narcotics due to pain. He has been drinking his clear liquids but denies any flatus or bowel movements and notes that he feels bloated today. He denies any difficulty breathing or shortness of breath. He has been getting up and walking. Physical Exam Vital Signs: Vital Signs: Last Vital Signs Temp 97.5 F 03/05/23 07:58 Pulse 86 03/05/23 07:58 Resp 18 03/05/23 07:58 BP 113/74 03/05/23 07:58 Pulse Ox 95 03/05/23 07:58 O2 Del Method Room Air 03/05/23 07:58 O2 Flow Rate 2.0 03/03/23 15:10 BMI result Body Mass Index 27.3 On exam he is nontoxic Sclera anicteric He is in no acute respiratory distress His abdomen is distended by comparison to yesterday with some tympany but no peritoneal sign. Dressings are clean and intact Objective Data Active Medications Al Hydroxide/Mg Hydroxide (Magnesium Hydrox/Alum Hydrox 30 Ml Oral.Susp) 30 ml PO Q6H PRN PRN Reason: Heartburn Acetaminophen (Ofirmev) 1,000 mg in 100 mls @ 400 mls/hr IV Q6H [facility] Last Infusion: 03/05/23 06:20 Dose: 0 mls/hr Documented By: MIGUEL Lactated Ringer's (Lr) 1,000 mls @ 80 mls/hr IVCONT .[id number] [facility] Last Admin: 03/05/23 02:30 Dose: 80 mls/hr Documented By: MIGUEL Melatonin (Melatonin 3 Mg Tablet) 6 mg PO BEDTIME PRN PRN Reason: Insomnia Morphine Sulfate (Morphine Sulfate 4 Mg/Ml Cartridge) 4 mg IVPUSH Q4H PRN; Protocol PRN Reason: Pain, Severe (Pain Scale 7-10) Last Admin: 03/04/23 21:01 Dose: 4 mg Documented By: MIGUEL Oxycodone HCl (Oxycodone Hcl Immed Release 5 Mg Tablet) 5 mg PO Q4H PRN PRN Reason: Pain, Moderate(Pain Scale 4-6) Last Admin: 03/04/23 17:51 Dose: 5 mg Documented By: JORGE Oxycodone HCl (Oxycodone Hcl Immed Release 5 Mg Tablet) 10 mg PO Q4H PRN PRN Reason: Pain, Severe (Pain Scale 7-10) Last Admin: 03/05/23 04:40 Dose: 10 mg Documented By: MIGUEL Sodium Chloride (0.9 % Sodium Chloride Flush 3 Ml Syringe) 3 ml IVFLUSH [facility] Last Admin: 03/05/23 07:30 Dose: Not Given Documented By: JORGE Non-Admin Reason: IV Running Sodium Chloride (0.9 % Sodium Chloride Flush 3 Ml Syringe) [facility] Last Admin: 03/05/23 07:30 Dose: Not Given Documented By: JORGE Non-Admin Reason: IV Running Labs 03/04/23 06:04 03/04/23 06:04 Procedures Date of Service Date of Service: 03/05/23 Progress Note: A&P Assessment and plan (1) Appendiceal abscess: Status: Acute (2) Acute perforated appendicitis: Status: Acute Plan Postop day 2 Again reminded the patient to go easy with liquids in the should be used for comfort only since he seems to have an ileus. He I explained to and that he is at risk for vomiting which would need to be addressed with a nasogastric tube. While he can stay on clears, both the nurse and the patient were advised to use them sparingly until he has flatus. His abdominal distention is causing pain which is causing narcotic use which is contributing to the ileus. Dr. Nair will resume care tomorrow 03/06/2023. Please call me today if there are any specific questions or if the patient has any vomiting or new problems. Time Spent With Patient Time: Total time managing care of this patient today ____ minutes. Quality Stroke Does the patient have a stroke diagnosis?: No VTE Prior VTE?: No VTE Risk Level:: Medical - low VTE Device Contraindication: N/A - Device Ordered VTE Drug Contraindication: Treatment Not Indicated
[2023-03-05] MEDS: oxyCODONE HCl Immed Release 5 MG TABLET PO (13:00)
[2023-03-05 15:11] VITALS: BP 116/75; PULSE 83; RESP 18; TEMP 36.6; O2SAT 97
[2023-03-05 20:00] VITALS: BP 127/69; PULSE 72; RESP 15; TEMP 36.7; O2SAT 88
[2023-03-06] MEDS: Acetaminophen 1,000 MG/100 ML PIGGYBACK 400 MG IV ×2 (05:00→11:20)
[2023-03-06] MEDS: Lactated Ringers 1,000 ML 80 ML IVCONT (05:00)
[2023-03-06] MEDS: 0.9 % Sodium Chloride Flush 3 ML SYRINGE IVFLUSH ×3 (07:36→20:56)
[2023-03-06 07:38] VITALS: O2SAT 96
[2023-03-06] MEDS: oxyCODONE HCl Immed Release 5 MG TABLET PO ×2 (07:39→11:24)
--- NOTE | 2023-03-06 07:42 | P.PNGS_ITS ---
Subjective Subjective Date of Service: 03/06/23 <Jacki Ibanez PA-C - Last Filed: 03/06/23 07:46> 03/06/23 <Louie Nair MD - Last Filed: 03/06/23 09:03> Interval history: Feeling a little better this morning. Passed a little flatus. Has been OOB and ambulating. Tolerating clear liquids, denies nausea. <Jacki Ibanez PA-C - Last Filed: 03/06/23 07:46> Physical Exam Vital Signs: Vital Signs: Last Vital Signs Temp 98.0 F 03/05/23 20:00 Pulse 72 03/05/23 20:00 Resp 15 03/05/23 20:00 BP 127/69 03/05/23 20:00 Pulse Ox 96 03/06/23 07:38 O2 Del Method Room Air 03/06/23 07:38 O2 Flow Rate 88 03/05/23 20:00 BMI result Body Mass Index 27.3 <Jacki Ibanez PA-C - Last Filed: 03/06/23 07:46> Const: General: healthy appearing, comfortable, no acute distress and alert <Jacki Ibanez PA-C - Last Filed: 03/06/23 07:46> Orientation/consciousness: patient oriented x3 <ZACHARY Lerma Last Filed: 03/06/23 07:46> Resp: Effort & Inspection: normal respiratory effort and able to speak in complete sentences <Jacki Ibanez PA-C - Last Filed: 03/06/23 07:46> GI: Inspection: Yes distended (mild) and Yes incision (clean) <Jacki Ibanez PA-C - Last Filed: 03/06/23 07:46> Palpation (GI): Soft to palpation, Tenderness to palpation present (GI) (mild, incisional), no guarding and not rigid <ZACHARY Lerma Last Filed: 03/06/23 07:46> Percussion: Yes normal to percussion <ZACHARY Lerma Last Filed: 03/06/23 07:46> Skin: General skin exam: no rashes or lesions noted <Jacki Ibanez PA-C - Last Filed: 03/06/23 07:46> Neuro: General: patient oriented x3 and moves all extremities <Jacki Ibanez PA-C - Last Filed: 03/06/23 07:46> Objective Data Active Medications Al Hydroxide/Mg Hydroxide (Magnesium Hydrox/Alum Hydrox 30 Ml Oral.Susp) 30 ml PO Q6H PRN PRN Reason: Heartburn Acetaminophen (Ofirmev) 1,000 mg in 100 mls @ 400 mls/hr IV Q6H [facility] Last Infusion: 03/06/23 06:20 Dose: 0 mls/hr Documented By: ANDREA Lactated Ringer's (Lr) 1,000 mls @ 80 mls/hr IVCONT .[id number] [facility] Last Admin: 03/06/23 05:00 Dose: 80 mls/hr Documented By: ANDREA Melatonin (Melatonin 3 Mg Tablet) 6 mg PO BEDTIME PRN PRN Reason: Insomnia Morphine Sulfate (Morphine Sulfate 4 Mg/Ml Cartridge) 4 mg IVPUSH Q4H PRN; Protocol PRN Reason: Pain, Severe (Pain Scale 7-10) Last Admin: 03/04/23 21:01 Dose: 4 mg Documented By: MIGUEL Oxycodone HCl (Oxycodone Hcl Immed Release 5 Mg Tablet) 5 mg PO Q4H PRN PRN Reason: Pain, Moderate(Pain Scale 4-6) Last Admin: 03/05/23 13:00 Dose: 5 mg Documented By: KASIA Oxycodone HCl (Oxycodone Hcl Immed Release 5 Mg Tablet) 10 mg PO Q4H PRN PRN Reason: Pain, Severe (Pain Scale 7-10) Last Admin: 03/05/23 21:37 Dose: 10 mg Documented By: ANDREA Sodium Chloride (0.9 % Sodium Chloride Flush 3 Ml Syringe) [facility] Last Admin: 03/06/23 07:36 Dose: 3 ml Documented By: KEESHA Sodium Chloride (0.9 % Sodium Chloride Flush 3 Ml Syringe) 3 ml IVFLUSH [facility] Last Admin: 03/05/23 23:48 Dose: Not Given Documented By: ANDREA Non-Admin Reason: Duplicate Order <Jacki Ibanez PA-C - Last Filed: 03/06/23 07:46> Labs CBC & Chem 7: 03/04/23 06:04 03/04/23 06:04 <Jacki Ibanez PA-C - Last Filed: 03/06/23 07:46> Procedures Date of Service Date of Service: 03/06/23 <Jacki Ibanez PA-C - Last Filed: 03/06/23 07:46> 03/06/23 <Louie Nair MD - Last Filed: 03/06/23 09:03> Progress Note: A&P Assessment and plan (1) S/P right colectomy: Status: Acute <Jacki Ibanez PA-C - Last Filed: 03/06/23 07:46> Assessment and Plan: Passed flatus this morning Feels okay Has been ambulating Tolerating clear liquids well Abdomen soft and benign Incisions clean, healing well Start full liquids, advance diet as tolerated Encourage ambulation Pain management Seen examined independently <Louie Nair MD - Last Filed: 03/06/23 09:03> Assessment and Plan: 37 year old male POD #3 s/p DEBBIE right colon resection. Doing fairly well post op, no acute issues. Beginning to pass flatus. Will advance to full liquids, encourage OOB/ambulation and IS use. Await BM. Await pathology. Home when tolerating solid diet, has good GI function. Patient comfortable with plan. <Jacki Ibanez PA-C - Last Filed: 03/06/23 07:46> Time Spent With Patient Time: Total time managing care of this patient today ____ minutes. <Jacki Ibanez PA-C - Last Filed: 03/06/23 07:46> Quality Stroke Does the patient have a stroke diagnosis?: No <Jacki Ibanez PA-C - Last Filed: 03/06/23 07:46> VTE Prior VTE?: No <Jacki Ibanez PA-C - Last Filed: 03/06/23 07:46> VTE Risk Level:: Medical - low <Jacki Ibanez PA-C - Last Filed: 03/06/23 07:46> VTE Device Contraindication: N/A - Device Ordered <Jacki Ibanez PA-C - Last Filed: 03/06/23 07:46> VTE Drug Contraindication: Treatment Not Indicated <Jacki Ibanez PA-C - Last Filed: 03/06/23 07:46>
[2023-03-06 08:00] VITALS: BP 104/64; PULSE 67; RESP 18; TEMP 36.4; O2SAT 96
--- NOTE | 2023-03-06 14:16 | MHC.CM.PN ---
Patient is tolerating clears. Plan is to advance diet and discharge. DP home self care. Patient has arranged for a family member to drive him home.
--- NOTE | 2023-03-06 14:58 | PM.EVENT ---
Event Note Date of Service: 03/06/23 Event Note: Seen on afternoon rounds Says he continues to feel well Some incisional pain Passing more flatus Tolerating full liquids Says he has been ambulating Plan to advance diet tomorrow morning, possible discharge Time Spent With Patient Time: Total time managing care of this patient today ____ minutes.
[2023-03-06 15:19] VITALS: BP 112/68; PULSE 80; RESP 16; TEMP 36.3; O2SAT 97
[2023-03-06] MEDS: oxyCODONE HCl Immed Release 5 MG TABLET 10 MG PO ×2 (17:01→20:54)
[2023-03-06 19:32] VITALS: BP 124/79; PULSE 93; RESP 18; TEMP 36.8; O2SAT 96
[2023-03-07 02:45] VITALS: BP 109/66; PULSE 72; RESP 15; TEMP 36.4; O2SAT 95
[2023-03-07] MEDS: oxyCODONE HCl Immed Release 5 MG TABLET 10 MG PO (02:47)
[2023-03-07 07:23] VITALS: BP 113/77; PULSE 74; RESP 20; TEMP 36.9; O2SAT 95
--- NOTE | 2023-03-07 07:53 | P.PNGS_ITS ---
Subjective Subjective Date of Service: 03/07/23 <Jacki Ibanez PA-C - Last Filed: 03/07/23 07:55> 03/07/23 <Louie Nair MD - Last Filed: 03/07/23 08:49> Interval history: Having some gas pains. Tolerated full liquids but did not really like them and wants to eat. Has been OOB and ambulating. Ambulated a lot yesterday and is sore this morning. Continues to pass flatus but no BM. <ALBANIA Lerma - Last Filed: 03/07/23 07:55> Physical Exam Vital Signs: Vital Signs: Last Vital Signs Temp 98.4 F 03/07/23 07:23 Pulse 74 03/07/23 07:23 Resp 20 03/07/23 07:23 BP 113/77 03/07/23 07:23 Pulse Ox 95 03/07/23 07:23 O2 Del Method Room Air 03/07/23 07:23 O2 Flow Rate 88 03/05/23 20:00 BMI result Body Mass Index 27.3 <Jacki Ibanez PA-C - Last Filed: 03/07/23 07:55> Const: General: healthy appearing, comfortable, no acute distress and awake <ZACHARY Lerma Last Filed: 03/07/23 07:55> Orientation/consciousness: patient oriented x3 <ZACHARY Lerma Last Filed: 03/07/23 07:55> Resp: Effort & Inspection: normal respiratory effort <ZACHARY Lerma Last Filed: 03/07/23 07:55> GI: Inspection: Yes distended (mildly, soft) and Yes incision (clean) < ZACHARY Lerma Last Filed: 03/07/23 07:55> Palpation (GI): Soft to palpation, Tenderness to palpation present (GI) (mild incisional), no guarding and not rigid <ZACHARY Lerma Last Filed: 03/07/23 07:55> Skin: General skin exam: no rashes or lesions noted <ZACHARY Lerma Last Filed: 03/07/23 07:55> Neuro: General: patient oriented x3 <Jacki Ibanez PA-C - Last Filed: 03/07/23 07:55> Objective Data Active Medications Al Hydroxide/Mg Hydroxide (Magnesium Hydrox/Alum Hydrox 30 Ml Oral.Susp) 30 ml PO Q6H PRN PRN Reason: Heartburn Melatonin (Melatonin 3 Mg Tablet) 6 mg PO BEDTIME PRN PRN Reason: Insomnia Morphine Sulfate (Morphine Sulfate 4 Mg/Ml Cartridge) 4 mg IVPUSH Q4H PRN; Protocol PRN Reason: Pain, Severe (Pain Scale 7-10) Last Admin: 03/04/23 21:01 Dose: 4 mg Documented By: MIGUEL Oxycodone HCl (Oxycodone Hcl Immed Release 5 Mg Tablet) 5 mg PO Q4H PRN PRN Reason: Pain, Moderate(Pain Scale 4-6) Last Admin: 03/06/23 11:24 Dose: 5 mg Documented By: SONIA Oxycodone HCl (Oxycodone Hcl Immed Release 5 Mg Tablet) 10 mg PO Q4H PRN PRN Reason: Pain, Severe (Pain Scale 7-10) Last Admin: 03/07/23 02:47 Dose: 10 mg Documented By: ANDREA Sodium Chloride (0.9 % Sodium Chloride Flush 3 Ml Syringe) 3 ml IVFLUSH [facility] Last Admin: 03/06/23 20:56 Dose: 3 ml Documented By: ANDREA Sodium Chloride (0.9 % Sodium Chloride Flush 3 Ml Syringe) 3 ml IVFLUSH [facility] Last Admin: 03/06/23 23:45 Dose: Not Given Documented By: ANDREA Non-Admin Reason: Patient Refused <Jacki Ibanez PA-C - Last Filed: 03/07/23 07:55> Labs CBC & Chem 7: 03/04/23 06:04 03/04/23 06:04 <Jacki Ibanez PA-C - Last Filed: 03/07/23 07:55> Procedures Date of Service Date of Service: 03/07/23 <Jacki Ibanez PA-C - Last Filed: 03/07/23 07:55> 03/07/23 <Louie Nair MD - Last Filed: 03/07/23 08:49> Progress Note: A&P Assessment and plan (1) S/P right colectomy: Status: Acute <Jacki Ibanez PA-C - Last Filed: 03/07/23 07:55> Assessment and Plan: says he is hungry passing flatus well sore on incision abd soft looks well diet as tolerated possible dc home later today seen and examined independently <Louie Nair MD - Last Filed: 03/07/23 08:49> Assessment and Plan: 37 year old male POD #4 s/p DEBBIE right colon resection. Doing fairly well post op, no acute issues. Has some evidence of GI function but awaiting BM. Will advance to solid diet as tolerated, encourage OOB/ambulation and IS use. Await BM. Will add colace. Await pathology. Home when tolerating solid diet, has good GI function. Patient comfortable with plan. <Jacki Ibanez PA-C - Last Filed: 03/07/23 07:55> Time Spent With Patient Time: Total time managing care of this patient today ____ minutes. <Jacki Ibanez PA-C - Last Filed: 03/07/23 07:55> Quality Stroke Does the patient have a stroke diagnosis?: No <Jacki Ibanez PA-C - Last Filed: 03/07/23 07:55> VTE Prior VTE?: No <Jakci Ibanez PA-C - Last Filed: 03/07/23 07:55> VTE Risk Level:: Medical - low <Jacki Ibanez PA-C - Last Filed: 03/07/23 07:55> VTE Device Contraindication: N/A - Device Ordered <Jacki Ibanez PA-C - Last Filed: 03/07/23 0 7:55> VTE Drug Contraindication: Treatment Not Indicated <Jacki Ibanez PA-C - Last Filed: 03/07/23 07:55>
[2023-03-07 08:00] VITALS: BP 113/77; PULSE 74; RESP 20; TEMP 36.9
[2023-03-07] MEDS: Docusate Sodium 100 MG CAPSULE PO (09:41)
[2023-03-07] MEDS: Acetaminophen 325 MG TABLET 975 MG PO ×2 (09:41→14:31)
[2023-03-07] MEDS: 0.9 % Sodium Chloride Flush 3 ML SYRINGE IVFLUSH (09:42)
[2023-03-07] MEDS: oxyCODONE HCl Immed Release 5 MG TABLET PO (12:42)
--- NOTE | 2023-03-07 14:58 | PM.EVENT ---
Event Note Date of Service: 03/07/23 Event Note: seen on afternoon round continues to feel well tolerating diet well passing consistent flatus no N/V good pain control says he is ready to be discharged abd remains sift and benign looks well will dc home Colace prescribed dc instructions reviewed Time Spent With Patient Time: Total time managing care of this patient today ____ minutes.
--- NOTE | 2023-03-07 15:04 | MHC.CM.PN ---
Patient is discharged today to home self-care. He has arranged for family transport home.
--- NOTE | 2023-03-08 11:00 | PM.DS ---
DS: Providers Provider Date of Service: 03/07/23 Date of admission: 03/03/23 07:26 Date of discharge: 03/07/23 Primary care physician: JESSICA Cleaning Attending physician on admission: Louie Nair DS: Diagnosis Discharge Diagnosis (1) S/P right colectomy: Status: Acute DS: Summary Hospital Course Hospital Course: HPI AT ADMISSION: The patient is a 37-year-old male who had been admitted November, because of abdominal pain with a fluid collection around the appendix suggestive of an abscess.? However, CT drainage not reveal any pus and there was note of what appeared to be mucinous fluid aspirated. CT scan was repeated a month after with a similar looking fluid collection.? These images were reviewed with the radiologist.? There was a concern for a neoplastic process in view of the none purulent aspirate, and persistent fluid collection.? It was therefore recommended to proceed with right colon resection.? He now presents for the planned procedure. HOSPITAL COURSE: On 03/03/23, a DEBBIE right colon resection was performed by Dr. Nair without complication. There were?very dense inflammatory changes surrounding the posterior aspect of the cecum along base of the appendix. He tolerated the procedure well and was admitted for observation. He had an uncomplicated but slower recovery course. He was slow to gain return of GI function. On POD #1 he felt overall well but had some mild abd distention. His florence was removed. He was ambulated. He was continued on clear liquids until POD #3 when he began passing flatus and distention was somewhat improved. He was advanced to full liquids. The following day he still did not have a BM but felt overall improved. He was advanced to a solid diet. He was started on colace and simethicone. He was reassessed later in the day and was tolerating a solid diet without n/v. He was passing continuous flatus. His pain was controlled on oral analgesics. His abdomen was benign with clean incisions and soft, mild incisional tenderness. He felt ready for discharge. He was discharged to home on 03/07/23 in stable condition. He was discharged on colace BID for bowel regimen. He is to follow up in office in 2 weeks. Pathology remains pending. Status at Discharge Functional status at discharge: independent ambulation Overall status at discharge: patient is progressing back to baseline Time Spent with Patient Time attestation: Total time managing care of this patient today ____ minutes. Discharge coordination time: Less than 30 minutes Quality: Safe Use of Opioids Does Pt have an Active Cancer Diagnosis on the Problem List?: No Quality: Stroke Does the patient have a stroke diagnosis?: No Physical Exam Vital Signs: Vital Signs: Last Vital Signs Temp 98.4 F 03/07/23 08:00 Pulse 74 03/07/23 08:00 Resp 20 03/07/23 08:00 BP 113/77 03/07/23 08:00 Pulse Ox 95 03/07/23 07:23 O2 Del Method Room Air 03/07/23 08:00 O2 Flow Rate 88 03/05/23 20:00 BMI result Body Mass Index 27.3 Const: General: comfortable, no acute distress and alert Orientation/consciousness: patient oriented x3 Resp: Effort & Inspection: normal respiratory effort GI: Inspection: Yes distended (softly, mild) and Yes incision (clean) Palpation (GI): Soft to palpation, Tenderness to palpation present (GI) (mild incisional), no guarding and not rigid Percussion: Yes normal to percussion Skin: General skin exam: no rashes or lesions noted Neuro: General: patient oriented x3 DS: Data Data Completed and Pending Completed studies during hospitalization [Text1]: Procedures Drainage of Appendix with Drainage Device, Percutaneous Approach (12/10/22) Resection of Right Large Intestine, Open Approach (03/03/23) Pending studies at discharge: Pending at discharge 03/03/23 11:10 Surgical [PTH] Routine Discharge Plan Discharge Anticipated Discharge Date/Time: 03/07/23 15:40 Patient Disposition: Home, Self-Care Discharge Diagnosis: s/p DEBBIE right colectomy Referrals: Louie Nair MD [Physician] - 2 Weeks Discharge Medications: New oxycodone-acetaminophen [Percocet] 5-325 mg tablet 1 tab PO Q4-6H PRN (Reason: pain) Qty: 30 0RF Rx Instructions: Partial Fill upon patient request.; Partial Fill upon patient request. docusate sodium [Colace] 100 mg capsule 100 mg PO BID Qty: 40 0RF Continued nystatin 100,000 unit/gram cream 1 appl topical BID-TID PRN (Reason: Rash) Discontinued amoxicillin-pot clavulanate 875-125 mg tablet 1 tab PO BID oxycodone 5 mg tablet 5 mg PO Q4H PRN (Reason: pain) Discharge Orders: Discharge Order (Routine); Ordered 03/07/23 Ordered By: Louie Nair Diet: Advance to usual diet Activity on Discharge: No heavy lifting Stand Alone Forms: Patient Portal Discharge page Activity Restrictions/Additional Instructions: If the incision area is tender, you may apply an ice pack for short intervals (No more than 20 minutes on, followed by at least 20 minutes off). Do not apply heat. Do not use creams, lotions, or topical antibiotics. These can cause infection or allergic reaction. Ok to shower. You have renate closing your incision and these will be removed approximately 10-14 days after surgery. NO HEAVY LIFTING (>10lbs) or strenuous activity. Follow up in office. ([phone]) Call Your Doctor If: -Your temperature exceeds 101.5? F -You experience excessive pain or swelling -You have an unexpected reaction to medication -You have excessive bleeding -You experience continued vomiting/nausea -Your incision begins to separate -Your incision shows signs of infection such as increased redness, swelling, excessive pain, drainage (light blood or clear fluid is normal) or heat Care Plan Goals: Return to baseline health and resume normal activities following recovery period. Health Concerns: appendiceal collection Plan of Treatment: s/p DEBBIE right colectomy f/u in office Assessment: Doing well post op Discharge Date/Time: 03/07/23 17:28
== END 2023-03-07 17:28 | disposition home or self-care (01) | DRG 221 ==
LOC: HO.SSSA 07:33 → HO.S3 12:29
PROVIDERS: Nurse Practitioner; Physician Assistant Surgical; Admitting Provider Surgery; PCP Nurse Practitioner Family; Visit Provider Surgery
PROC: 0DTE0ZZ Resection of Large Intestine, Open Approach (ICD-10-PCS; principal; 2023-03-03 09:30)
DX: K35.33 Acute appendicitis with perforation, localized peritonitis, and gangrene, with abscess (principal); K56.7 Ileus, unspecified
CPT/HCPCS: 36415; 80048; 85025; 85027; 86850; 86900; 86901; 88307; 88329; C1758; J0131; J1170; J2250; J2270; J2795; J3010

== ENCOUNTER → 2023-03-14 13:29 | Outpatient (BNVA) | payer BC, SELFPAY | PROVIDERS: PCP Nurse Practitioner Family; Visit Provider Surgery ==

== ENCOUNTER → 2023-03-22 15:11 | Outpatient (BNVA) | payer BC, SELFPAY | PROVIDERS: PCP Nurse Practitioner Family; Visit Provider Surgery ==

== ENCOUNTER 2023-03-27 20:24 | Inpatient (IN) | payer BC, MEDICAID, SELFPAY ==
--- NOTE | ~2023-03-27 | XR_ITS ---
EXAMINATION: XR CHEST CLINICAL INFORMATION: Short of breath COMPARISON: None available. TECHNIQUE: Frontal view of the chest was obtained. FINDINGS: The lungs are well expanded. There is no focal consolidation, edema, or effusion. No pneumothorax. The cardiomediastinal silhouette is within normal limits. No acute osseous abnormality. XR/XR chest 1V IMPRESSION: No acute pulmonary disease.
--- NOTE | ~2023-03-27 | CT_ITS ---
EXAMINATION: CT ABDOMEN AND PELVIS WITH CONTRAST CLINICAL INFORMATION: Abdominal pain COMPARISON: 12/30/2022 TECHNIQUE: Multidetector volumetric images were obtained from the superior aspect of the liver through the pubic symphysis following administration 85 mL of Omnipaque 350 intravenous contrast. Sagittal and coronal reformatted images were obtained on the technologist's workstation. Oral contrast: No This CT examination was performed using dose optimization techniques as appropriate, variously including the following: *Automated exposure control *Adjustment of mA and/or kV according to patient size (this includes techniques or standardized protocols for targeted exams where dose is matched to indication/reason for exam; i.e. extremities or head) *Use of iterative reconstruction technique DLP: 566 mGy-cm FINDINGS: LUNG BASES: The visualized lung bases are unremarkable. LIVER, GALLBLADDER, AND BILIARY TREE: The liver is normal in size, shape, and attenuation. No focal hepatic lesion or biliary ductal dilatation is present. The gallbladder is unremarkable with no evidence of radiopaque gallstones, gallbladder wall thickening, or obvious pericholecystic inflammatory changes. PANCREAS: Unremarkable. SPLEEN: Unremarkable. ADRENAL GLANDS: Unremarkable. KIDNEYS AND URETERS: The kidneys are normal in size, shape, and attenuation. No hydronephrosis, hydroureter, or calculi seen. No perinephric stranding. BLADDER: Unremarkable. GASTROINTESTINAL TRACT: The stomach is unremarkable. Normal caliber small bowel. Enterocolic anastomosis in the right midabdomen status post partial colectomy. Inflammatory changes are seen in the right midabdomen in this area. No fluid collection. No free air. ABDOMINAL WALL: No significant hernia is appreciated. LYMPH NODES: Normal. VASCULAR: Unremarkable. PELVIC VISCERA: The prostate and seminal vesicles are unremarkable. OSSEOUS STRUCTURES: No acute or suspicious osseous abnormality. CT/CT abdomen pelvis w IV con IMPRESSION: Postsurgical changes of partial colectomy with ileocolic anastomosis in the right midabdomen. Inflammatory changes are seen in this area. No fluid collection. No free air. Fleischner guidelines were followed.
[2023-03-27 21:01] VITALS: BP 116/80; PULSE 108; RESP 16; TEMP 38.4; O2SAT 95; BMI 25.8
[2023-03-27 23:44] VITALS: BP 118/72; PULSE 104; RESP 16; TEMP 38.3; O2SAT 98
--- NOTE | 2023-03-27 23:54 | MHC.EDTECH ---
PATIENT BLOOD DRAWN ,VITALS SIGN TAKEN ,DISTILLERY [facility] HELPER CRISPIN IS AWARE OF PATIENT HIGH TEMP .
[2023-03-27 23:56] LABS: MANUAL DIFF FLAG NO
[2023-03-27 23:57] LABS: Basophils Percent Auto 0.2 % (0-2); Eosinophils Percent Auto 0.1 % (0-4); Hemoglobin 12.7 g/dl (14.0-18.0); Imm Gran Abs Auto 0.05 X10*3/uL (0.00-0.03); Imm Gran Pct Auto 0.3 % (0.0-0.4); Lymphocytes Percent Auto 13.6 % (20-40); Mean Corpuscular HGB Conc 32.6 g/dl (31.0-36.0); Mean Corpuscular Hemoglobin 28.4 pg (27.0-33.0); Mean Corpuscular Volume 87.2 fL (80.0-98.0); Mean Platelet Volume 11.5 fL (9.4-12.4); Monocytes Absolute Auto 0.9 X10*3/uL (0.1-1.2); Monocytes Percent Auto 5.8 % (2-11); Platelet Count 185 X10*3/uL (160-400); Red Blood Count 4.47 X10*6/uL (4.60-5.80); Red Cell Distribution Width 13.3 % (11.0-16.0)
[2023-03-28] VITALS (18 sets, daily range): BP systolic 89–115; BP diastolic 54–73; PULSE 94–110; RESP 15–22; TEMP 37.3–39; O2SAT 94–99
[2023-03-28 00:16] LABS: Alanine Aminotransferase 19 U/L (0-40); Albumin Level 4.3 g/dL (3.5-5.0); Alkaline Phosphatase 78 U/L (39-117); Anion Gap 14 (12-20); Aspartate Amino Transferase 17 U/L (5-37); Bilirubin Total 0.4 mg/dL (0.0-1.0); Blood Urea Nitrogen 12 mg/dL (9-16); Calcium 9.3 mg/dL (8.4-10.2); Carbon Dioxide 27 mmol/L (22-29); Chloride 103 mmol/L (96-108); Creatinine Clr Calc Pharmacy 116.4; Estimated Glomerular Filt Rate > 60; Glucose Random 121 mg/dL (60-115); Potassium 4.2 mmol/L (3.3-5.1); Sodium 140 mmol/L (135-145); Total Protein 8.4 g/dL (6.5-8.0)
--- NOTE | 2023-03-28 00:20 | PC.NURSE ---
Pt to ED for C/o fever with generalize malaise and mild abdominal pain in the periubilical area. 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 Pt states that he has been running a fever 100.8. Pt denies any other symptoms. Sepsis protocol started with pt. Lab work collected, pt placed n cardiac monitoring displaying ST in the low 100s. BP fluctuating in the low 100s systolic. Pt is AOX4. wound around the umbilicus is pink in color, dry and pt states no pain around the area of the incision. No signs of drainage or odor noted.
--- NOTE | 2023-03-28 00:34 | ED_ITS ---
HPI - General Adult General Chief complaint: General Medical Stated complaint: post op abd surgery 03/03 ? 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 Presented today with having fever. The fevers up to 101. Last bowel movement was about 24 hours ago. No pain on urination. No coughing or congestion or upper respiratory symptoms. No diaphoresis. Positive generalized body ache. Patient from home. Related Data Home Medications Medication Instructions Recorded Confirmed nystatin 100,000 unit/gram topical 1 appl topical BID-TID PRN Rash 03/02/23 03/03/23 cream Allergies Allergy/AdvReac Type Severity Reaction Status Date / Time No Known Allergies Allergy Verified 03/22/23 15:17 Review of Systems Review of Systems: Positive mild abdominal pain. Positive fever. Yes all other systems are reviewed and are negative PMFSH Past Medical History Attestation statement: The following information was validated with the patient. Medical History Acute perforated appendicitis Appendiceal abscess Surgical History H/O hand surgery S/P right colectomy (~03/03/23) Social History Social History Household Members: Spouse and Children Housing: House Do you presently have visiting nurse or other home services: No Patient Tobacco Use Status: Never used Tobacco Smoked in Last 30 Days: No Use of substances other than those prescribed or required for medical reasons: No Any prior treatment program specific to substance use: No Advance Directives: No Advance Directives Information Provided: Yes service: No Current occupational status: employed Physical Exam ED Vital Signs: Vital Signs - 24 hr 03/27/23 21:01 03/27/23 23:44 03/28/23 00:47 Temperature 101.1 F H 101.0 F H 100.8 F H Pulse Rate 108 H 104 H 94 Respiratory Rate 16 16 15 Blood Pressure 116/80 118/72 115/72 Pulse Oximetry 95 98 99 Oxygen Delivery Method Room Air Room Air Room Air 03/28/23 01:20 03/28/23 01:35 03/28/23 02:03 Temperature 101.4 F H 101.7 F H 100.0 F Pulse Rate 95 99 99 Respiratory Rate 16 17 22 H Blood Pressure 102/64 100/63 97/58 L Pulse Oximetry 98 98 95 Oxygen Delivery Method Room Air Room Air Room Air 03/28/23 02:21 03/28/23 02:35 03/28/23 02:30 Temperature 99.9 F 100.1 F Pulse Rate 97 97 95 Respiratory Rate 15 22 H 20 Blood Pressure 103/63 98/56 L 96/55 L Pulse Oximetry 99 95 95 Oxygen Delivery Method Room Air Room Air Room Air 03/28/23 02:41 03/28/23 04:39 03/28/23 04:40 Temperature Pulse Rate 97 100 101 H Respiratory Rate 20 Blood Pressure 93/54 L 89/56 L 103/73 Pulse Oximetry 94 Oxygen Delivery Method Room Air 03/28/23 04:41 03/28/23 04:47 03/28/23 04:48 Temperature Pulse Rate 106 H 106 H 101 H Respiratory Rate Blood Pressure 110/69 110/64 103/73 Pulse Oximetry Oxygen Delivery Method 03/28/23 04:48 Temperature Pulse Rate 110 H Respiratory Rate Blood Pressure 89/56 L Pulse Oximetry Oxygen Delivery Method BMI result Body Mass Index 25.8 Appearance: Alert. Oriented X3. No acute distress. Eyes: Pupils equal, round and reactive to light. ENT: Pharynx normal. Neck: Normal inspection. Neck supple. No lymph nodes noted. No crepitus CVS: Normal heart rate and rhythm. Pulses normal. Normal S1 and S2 Respiratory: No respiratory distress. Breath sounds normal. No Wheezing. No rales Abdomen: Soft and nontender. No rigidity. No distention. good BS x4. Abdominal wound seems to be intact. There is no gross discharge noted. Skin: Skin warm and dry. Normal skin color. Normal skin turgor. Extremities: No lower extremity edema. Neurovascular intact to all extremities. No Lacerations. No Rash Neuro: Oriented X 3. No motor deficit. No sensory deficit. Moving all extermities. No slurred speech Medications Administered Discontinued Medications Generic Name Dose Route Start Last Admin Trade Name Freq PRN Reason Stop Dose Admin Acetaminophen 975 mg 03/28/23 04:47 03/28/23 04:58 Acetaminophen 325 Mg Tablet PO 03/28/23 04:48 975 mg ONCE ONE Administration Sodium Chloride 2,381.37 mls @ 2,381.37 mls/hr 03/28/23 00:28 03/28/23 02:21 Ns 30 ml/kg infuse over 1 hr (2381.37 ml) 03/28/23 01:27 Infused IV Infusion .Q1H STA Ceftriaxone Sodium 1 gm/ 50 mls @ 100 mls/hr 03/28/23 00:28 03/28/23 02:30 Sodium Chloride IV 03/28/23 00:57 Infused ONCE ONE Infusion Metronidazole 500 mg in 100 mls @ 100 mls/hr 03/28/23 00:28 03/28/23 01:27 Flagyl IV 03/28/23 01:27 Infused ONCE ONE Infusion Sodium Chloride 1,000 mls @ 999 mls/hr 03/28/23 02:45 03/28/23 03:46 Ns IV 03/28/23 03:45 Infused .Q1H1M MICHAEL Infusion Iohexol 85 ml 03/28/23 02:06 03/28/23 02:06 Iohexol 350 Mg/Ml 100 Ml Infus..Btl IV 03/28/23 02:07 85 ml ONCE ONE Administration Ketorolac Tromethamine 15 mg 03/28/23 00:30 03/28/23 00:59 Ketorolac Tromethamine 15 Mg/Ml Vial IVPUSH 03/28/23 00:31 15 mg ONCE ONE Administration Medical Decision Making Medical Decision Making MDM Narrative: Patient is 37 years old presents today with generalized malaise fever temperature was 101 degrees on arrival. A septic alert was called initially. Patient's lactate was 1.2, given 30 cc/kilos of IV fluids. Initially patient was given Rocephin and Flagyl to empirically cover the abdomen. Patient's heart rate came down to approximately 100 blood pressure was 90/50 on lying actually i mproved on standing to 110/70. Heart rate remains about the same. Patient ambulated in the emergency department well. Stat maintain at 98%. CT scan of the abdomen pelvis showed no acute evidence of abscess perforation obstruction. My interpretation of patient's chest x-ray showed no pneumonia no pneumothorax no rib fractures. Patient's urine showed no signs of infection. Lyme, ehrlichiosis, babesiosis sent. Patient's platelet count was normal at 185. [place] patient is not septic. Patient's exam not consistent with meningitis. More likely a viral syndrome. Nevertheless will admit patient for close monitoring. In stable condition. Case consulted by the hospitalist team. Differential Diagnosis Differential Diagnoses: The differential diagnosis associated with the presentation includes Urinary tract infection, intra-abdominal process, pneumonia, pneumothorax. Admission/Observation Consideration of admission/observation: Escalation of care including admission/observation considered Will admit given patient's history persistent lower and blood pressure, tachycardia and temperature Consult Healthcare Provider Management of the patient was discussed with: Hospitalist Lab Data MDM Lab Attestation statement: I reviewed the patient's lab results. 03/27/23 23:51 03/27/23 23:51 Labs: Lab Results 03/27/23 03/27/23 03/28/23 Range/Units 23:51 23:51 00:41 WBC 15.0 H (4.8-10.8) X10*3/uL RBC 4.47 L (4.60-5.80) X10*6/uL Hgb 12.7 L (14.0-18.0) g/dl Hct 39.0 L (42.0-52.0) % MCV 87.2 (80.0-98.0) fL MCH 28.4 (27.0-33.0) pg MCHC 32.6 (31.0-36.0) g/dl RDW 13.3 (11.0-16.0) % Plt Count 185 (160-400) X10*3/uL MPV 11.5 (9.4-12.4) fL Immature Gran % (Auto) 0.3 (0.0-0.4) % Neut % (Auto) 80.0 H (45-73) % Lymph % (Auto) 13.6 L (20-40) % [place] % (Auto) 5.8 (2-11) % Eos % (Auto) 0.1 (0-4) % Baso % (Auto) 0.2 (0-2) % Lymph # (Auto) 2.0 (1.2-4.9) X10*3/uL [place] # (Auto) 0.9 (0.1-1.2) X10*3/uL Eos # (Auto) 0.0 (0.0-0.4) X10*3/uL Baso # (Auto) 0.0 (0.0-0.2) X10*3/uL Abs Immat Gran (auto) 0.05 H (0.00-0.03) X10*3/uL Absolute Neuts (auto) 12.0 H (2.0-8.3) x10*3/uL Absolute Nucleated RBC 0.000 (0.0-0.012) X10*3/uL Nucleated RBC % (auto) 0.0 (0.0-0.2) /100WBC Sodium 140 (135-145) mmol/L Potassium 4.2 (3.3-5.1) mmol/L Chloride 103 (96-108) mmol/L Carbon Dioxide 27 (22-29) mmol/L Anion Gap 14 (12-20) BUN 12 (9-16) mg/dL Creatinine 0.86 (0.5-1.4) mg/dL Estim Creat Clear Calc 116.4 Estimated GFR > 60 Random Glucose 121 H (60-115) mg/dL Lactic Acid 1.2 (0.5-2.0) mmol/L Calcium 9.3 D (8.4-10.2) mg/dL Total Bilirubin 0.4 (0.0-1.0) mg/dL AST 17 (5-37) U/L ALT 19 (0-40) U/L Alkaline Phosphatase 78 (39-117) U/L Total Protein 8.4 H (6.5-8.0) g/dL Albumin 4.3 (3.5-5.0) g/dL Urine Color Urine Appearance Urine pH (5.0-9.0) Ur Specific [place] (1.005-1.025) Urine Protein (Neg-Trace) mg/dL Urine Glucose (UA) (Negative) mg/dL Urine Ketones (Negative) mg/dL Urine Blood (Negative) Urine Nitrite (Negative) Ur Leukocyte Esterase (Negative) Urine RBC (0-2) /HPF Urine WBC (0-5) /HPF Ur Squamous Epith Cells (0-2) /HPF Urine Bacteria (None Seen) Hyaline Casts (0-2) /LPF Influenza Type A (PCR) (Negative) Influenza Type B (PCR) (Negative) RSV RNA Qual (PCR) (Negative) SARS-CoV-2 RNA (RT-PCR) (Negative) 03/28/23 03/28/23 Range/Units 00:41 02:27 WBC (4.8-10.8) X10*3/uL RBC (4.60-5.80) X10*6/uL Hgb (14.0-18.0) g/dl Hct (42.0-52.0) % MCV (80.0-98.0) fL MCH (27.0-33.0) pg MCHC (31.0-36.0) g/dl RDW (11.0-16.0) % Plt Count (160-400) X10*3/uL MPV (9.4-12.4) fL Immature Gran % (Auto) (0.0-0.4) % Neut % (Auto) (45-73) % Lymph % (Auto) (20-40) % [place] % (Auto) (2-11) % Eos % (Auto) (0-4) % Baso % (Auto) (0-2) % Lymph # (Auto) (1.2-4.9) X10*3/uL [place] # (Auto) (0.1-1.2) X10*3/uL Eos # (Auto) (0.0-0.4) X10*3/uL Baso # (Auto) (0.0-0.2) X10*3/uL Abs Immat Gran (auto) (0.00-0.03) X10*3/uL Absolute Neuts (auto) (2.0-8.3) x10*3/uL Absolute Nucleated RBC (0.0-0.012) X10*3/uL Nucleated RBC % (auto) (0.0-0.2) /100WBC Sodium (135-145) mmol/L Potassium (3.3-5.1) mmol/L Chloride (96-108) mmol/L Carbon Dioxide (22-29) mmol/L Anion Gap (12-20) BUN (9-16) mg/dL Creatinine (0.5-1.4) mg/dL Estim Creat Clear Calc Estimated GFR Random Glucose (60-115) mg/dL Lactic Acid (0.5-2.0) mmol/L Calcium (8.4-10.2) mg/dL Total Bilirubin (0.0-1.0) mg/dL AST (5-37) U/L ALT (0-40) U/L Alkaline Phosphatase (39-117) U/L Total Protein (6.5-8.0) g/dL Albumin (3.5-5.0) g/dL Urine Color Yellow Urine Appearance Clear Urine pH 7.0 (5.0-9.0) Ur Specific [place] >= 1.030 H (1.005-1.025) Urine Protein Negative (Neg-Trace) mg/dL Urine Glucose (UA) Negative (Negative) mg/dL Urine Ketones Negative (Negative) mg/dL Urine Blood Negative (Negative) Urine Nitrite Negative (Negative) Ur Leukocyte Esterase Negative (Negative) Urine RBC 0-2 (0-2) /HPF Urine WBC 0-5 (0-5) /HPF Ur Squamous Epith Cells 0-2 (0-2) /HPF Urine Bacteria None Seen (None Seen) Hyaline Casts 0-2 (0-2) /LPF Influenza Type A (PCR) NEGATIVE (Negative) Influenza Type B (PCR) NEGATIVE (Negative) RSV RNA Qual (PCR) NEGATIVE (Negative) SARS-CoV-2 RNA (RT-PCR) NEGATIVE (Negative) Discharge Plan Discharge Clinical Impression: Fever Patient Disposition: Admitted As Inpatient
[2023-03-28] MEDS: cefTRIAXone sodium 1 GM in 0.9 % Sodium Chloride 50 ML IV ×2 (00:51→22:51)
[2023-03-28] MEDS: metroNIDAZOLE/NS 500 MG/100 ML PIGGYBACK 100 MG IV (00:52)
[2023-03-28] MEDS: 0.9 % Sodium Chloride 2,381.37 ML 2381.37 ML IV (00:53)
[2023-03-28 00:56] LABS: Lactic Acid 1.2 mmol/L (0.5-2.0)
[2023-03-28] MEDS: Ketorolac Tromethamine 15 MG/ML VIAL IVPUSH (00:59)
[2023-03-28 01:43] LABS: Influenza A PCR NEGATIVE (Negative); Influenza B PCR NEGATIVE (Negative); Resp Syncy Virus RNA Qual PCR NEGATIVE (Negative); SARS COV2 PCR INHOUSE NEGATIVE (Negative)
[2023-03-28] MEDS: iohexoL 350 MG/ML 100 ML INFUS..BTL 85 ML IV (02:06)
[2023-03-28 02:33] LABS: Appearance Urine Clear; Color Urine Yellow; Glucose Urine UA Negative (Negative); Leukocyte Esterase Urine Negative (Negative); Nitrite Urine Negative (Negative); Specific Gravity - Urine >= 1.030 (1.005-1.025); Urine Blood Negative (Negative); Urine Ketones Negative (Negative); Urine Protein Negative (Neg-Trace)
[2023-03-28 02:38] LABS: Bacteria Urine None Seen (None Seen); Hyaline Casts Urine 0-2 /LPF (0-2); RBC Urine 0-2 /HPF (0-2); Squamous Epithelial Cell Urine 0-2 /HPF (0-2); WBC Urine 0-5 /HPF (0-5)
[2023-03-28] MEDS: 0.9 % Sodium Chloride 1,000 ML 999 ML IV (02:45)
--- NOTE | 2023-03-28 03:13 | PC.NURSE ---
Informed MD that pts BP is 93/54, HR 103. MD issued pt more fluids through the IV. MD also give pt the results of the CT report indicating that it was negative and believes the fever is not related to the previous surgery.
--- NOTE | 2023-03-28 04:43 | PC.NURSE ---
Informed MD that pt temp is 101.2 which has tamra from 99.9. tylenol ordered.
[2023-03-28] MEDS: Acetaminophen 325 MG TABLET 975 MG PO (04:58)
[2023-03-28] MEDS: vancomycin HCL 1,250 MG in 0.9 % Sodium Chloride 250 ML 166.67 MG IV ×2 (05:22→17:35)
--- NOTE | 2023-03-28 05:23 | P.HPHOSP_ITS ---
History of Present Illness Date of Service: 03/28/23 Chief Complaint: Fevers/chills This is a 37-year-old male who underwent right colon resection on 03/03/[address] 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 Patient states that he developed local cellulitis around surgical site around 03/11. There was also drainage of serosanguineous fluid from around the ER. Patient did not take any antibiotics for it. He saw Dr. Araiza is on 03/22 and underwent distal staple removal to release some serosanguineous fluid. On the day of presentation, patient developed fevers and chills and presented to the ER as he was told by his surgeon to come to the ER whenever he develops fevers or chills. Patient denies nausea, vomiting, abdominal pain, changes in urinary or bowel habits. No chest discomfort, palpitations or shortness of breath. No tick bites that he is aware of. No recent travels or hiking. In the emergency department, patient was found to be tachycardic, hypertensive and leukocytosis seen Review of Systems Constitutional: Constitutional: Reports chills, Reports fatigue, Reports fev er(s) and Reports malaise Cardiovascular: Cardiovascular: Reports no additional cardiovascular complaints Respiratory: Respiratory: Reports no additional respiratory complaints Gastrointestinal: Gastrointestinal: Reports no additional gastrointestinal complaints Genitourinary: Genitourinary: Reports no additional male genitourinary complaints Endocrine: Endocrine: Reports fatigue [facility] Medical History Acute perforated appendicitis Appendiceal abscess Pertinent family history: No family history of early CAD Surgical History H/O hand surgery S/P right colectomy (~03/03/23) Social History Household Members: Spouse and Children Housing: House Do you presently have visiting nurse or other home services: No Patient Tobacco Use Status: Never used Tobacco Smoked in Last 30 Days: No Use of substances other than those prescribed or required for medical reasons: No Any prior treatment program specific to substance use: No Advance Directives: No Advance Directives Information Provided: Yes service: No Current occupational status: employed Meds Allergies Allergy/AdvReac Type Severity Reaction Status Date / Time No Known Allergies Allergy Verified 03/22/23 15:17 Active Medications: Current Medications Sodium Chloride (0.9 % Sodium Chloride Flush 3 Ml Syringe) [facility] Home Medications Medication Instructions Recorded Confirmed Last Taken Type nystatin 100,000 unit/gram topical 1 appl topical BID-TID PRN Rash 03/02/23 03/03/23 Unknown History cream Physical Exam Vital Signs and Narrative: Vital Signs: Last Vital Signs Temp 100.1 F 03/28/23 02:35 Pulse 110 H 03/28/23 04:48 Resp 20 03/28/23 02:41 BP 89/56 L 03/28/23 04:48 Pulse Ox 94 03/28/23 02:41 O2 Del Method Room Air 03/28/23 02:41 BMI result Body Mass Index 25.8 Middle-aged male lying in bed in no distress Neck supple, no JVD Tachycardic with regular rhythm, S1-S2 heard Regular breath sounds bilaterally, no wheezing or crackles appreciated Abdomen soft nontender, no guarding, no rigidity, incision site without drainage Patient is awake, alert and oriented to self, place, time and person ; no focal motor deficit Psych: Normal mood No pedal edema Results Labs 03/27/23 23:51 03/27/23 23:51 Labs: Laboratory Results - last 24 hr 03/27/23 03/27/23 03/28/23 23:51 23:51 00:41 MCV 87.2 MCH 28.4 MCHC 32.6 RDW 13.3 Plt Count 185 MPV 11.5 Immature Gran % (Auto) 0.3 Neut % (Auto) 80.0 H Lymph % (Auto) 13.6 L [place] % (Auto) 5.8 Eos % (Auto) 0.1 Baso % (Auto) 0.2 Lymph # (Auto) 2.0 [place] # (Auto) 0.9 Eos # (Auto) 0.0 Baso # (Auto) 0.0 Abs Immat Gran (auto) 0.05 H Absolute Neuts (auto) 12.0 H Absolute Nucleated RBC 0.000 Nucleated RBC % (auto) 0.0 Anion Gap 14 Estim Creat Clear Calc 116.4 Estimated GFR > 60 Random Glucose 121 H Lactic Acid 1.2 Calcium 9.3 D Total Bilirubin 0.4 AST 17 ALT 19 Alkaline Phosphatase 78 Total Protein 8.4 H Albumin 4.3 Urine Color Urine Appearance Urine pH Ur Specific [place] Urine Protein Urine Glucose (UA) Urine Ketones Urine Blood Urine Nitrite Ur Leukocyte Esterase Urine RBC Urine WBC Ur Squamous Epith Cells Urine Bacteria Hyaline Casts Influenza Type A (PCR) Influenza Type B (PCR) RSV RNA Qual (PCR) SARS-CoV-2 RNA (RT-PCR) 03/28/23 03/28/23 00:41 02:27 MCV MCH MCHC RDW Plt Count MPV Immature Gran % (Auto) Neut % (Auto) Lymph % (Auto) [place] % (Auto) Eos % (Auto) Baso % (Auto) Lymph # (Auto) [place] # (Auto) Eos # (Auto) Baso # (Auto) Abs Immat Gran (auto) Absolute Neuts (auto) Absolute Nucleated RBC Nucleated RBC % (auto) Anion Gap Estim Creat Clear Calc Estimated GFR Random Glucose Lactic Acid Calcium Total Bilirubin AST ALT Alkaline Phosphatase Total Protein Albumin Urine Color Yellow Urine Appearance Clear Urine pH 7.0 Ur Specific [place] >= 1.030 H Urine Protein Negative Urine Glucose (UA) Negative Urine Ketones Negative Urine Blood Negative Urine Nitrite Negative Ur Leukocyte Esterase Negative Urine RBC 0-2 Urine WBC 0-5 Ur Squamous Epith Cells 0-2 Urine Bacteria None Seen Hyaline Casts 0-2 Influenza Type A (PCR) NEGATIVE Influenza Type B (PCR) NEGATIVE RSV RNA Qual (PCR) NEGATIVE SARS-CoV-2 RNA (RT-PCR) NEGATIVE Imaging Radiologist's Impressions: Impressions Abdomen/Pelvis CT 03/28/23 02:00 IMPRESSION: Postsurgical changes of partial colectomy with ileocolic anastomosis in the right midabdomen. Inflammatory changes are seen in this area. No fluid collection. No free air. Fleischner guidelines were followed. Chest X-Ray 03/28/23 02:00 IMPRESSION: No acute pulmonary disease. Assessment and Plan (1) Fever: Status: Acute Plan This is a 37-year-old male who underwent right colon resection on 03/03/[address] 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 #. SIRS+. Unclear source. Resuscitated with IV crystalloids. Lactic acid and blood cultures obtained. Treating with empiric IV antibiotics. Tick serology pending. Will obtain general surgery consult as patient with recent appendicectomy and right colon resection which was complicated by cellulitis and drainage of serosanguineous fluid from incision site. DVT prophylaxis: Lovenox Full code Regular diet Admit as inpatient and will require two night minimum hospital stay for IV antibiotics and monitoring of cultures Time Spent With Patient Time: Total time managing care of this patient today ____ minutes. Quality Stroke Does the patient have a stroke diagnosis?: No VTE Prior VTE?: No VTE Risk Level:: Medical - moderate - high VTE Device Contraindication: Treatment Not Indicated VTE Drug Contraindication: N/A - Med Ordered
[2023-03-28] MEDS: Enoxaparin Sodium 40 MG/0.4 ML SYRINGE SUBCUT (05:30)
--- NOTE | 2023-03-28 06:07 | PC.NURSE ---
pt at bedside with hospitalist going over the reasons why pt is being admitted to the hospital and what to be expected with his care plan. pt verbalized understanding, all questions answered.
--- NOTE | 2023-03-28 07:00 | PHA.PROG ---
Admission Date/Time: March 28, 2023 05:21 Indication: SKIN & STRUCTURE Weight in k.379 kg Adjusted body weight in K.379 Brick body weight in K.7 Obesity Dosing Indication % IBW: 25.8 Serum Creatinine - Last 168 Hours 03/27/23 23:51 Creatinine 0.86 Estimated CrCl and GFR - Last 168 Hours 03/27/23 23:51 Estim Creat Clear Calc 116.4 Estimated GFR > 60 Vancomycin Loading Dose: 1250 MG Current Vancomycin Dosing Regimen: 1250 MG Q12H Vancomycin Monitoring using AUC goal of 400 - 600 range with trough as surrogate marker: Expected auc 455 after 4th dose with trough 13.4 Date and Time for next Vancomycin Level to be drawn: 03/29 @1600 Pharmacist Comments on Vancomycin Plan: with dose of 1250 expect to see therapeutic levels after 3rd dose. I looked at 1000 mg q12 but modeling shows he may not be therapeutic until after the 6th dose. Renal function is good, continue monitoring and adjust if needed. Vancomycin dosing will take advantage of [employer] as a clinical decision support tool that uses Bayesian modeling to calculate individual patient's pharmacokinetic parameters and forecast the patient's drug concentration time course with the target goal AUC 24 range of 400 - 600 mg/L/hr.
--- NOTE | 2023-03-28 08:14 | PHA.MEDREC ---
Pharmacy Consult ? Medication Reconciliation Pharmacy has completed the medication reconciliation. No prescriptions, no OTC per patient
--- NOTE | 2023-03-28 08:19 | PM.CNGS ---
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 He had an uncomplicated recovery course. He was almost back to baseline when he developed chills and then a fever last night with tmax of 101.7 in the ED. Due to the fevers he came to the ED for evaluation. He was concerned for cellulitis at his incision site and he had previously had some drainage from his incision. This has since resolved. He denies abd pain, nausea, vomiting, diarrhea. He reports some cold symptoms of congestion. He denies SOB, chest pain, dizziness. Work up in the ED included CBC, BMP which was significant for WBC of 15. CT scan abd/pelvis showed post op changes in the right midabdomen without free fluid or air. <ZACHARY Lerma Last Filed: 03/28/23 08:33> Review of Systems Constitutional: Constitutional: Reports as per HPI, Reports chills, Reports fever(s) and Reports malaise <ZACHARY Lerma Last Filed: 03/28/23 08:33> ENT: Denies dizziness <ZACHARY Lerma Last Filed: 03/28/23 08:33> Cardiovascular: Cardiovascular: Denies chest pain, Denies palpitations and Denies dyspnea <ZACHARY Lerma Last Filed: 03/28/23 08:33> Respiratory: Respiratory: Denies dyspnea and Denies wheezing <ZACHARY Lerma Last Filed: 03/28/23 08:33> Gastrointestinal: Gastrointestinal: Reports as per HPI, Denies abdominal pain, Denies diarrhea, Denies nausea and Denies vomiting <ZACHARY Lerma Last Filed: 03/28/23 08:33> Genitourinary: Genitourinary: Denies dysuria <Jacki Ibanez PA-C Last Filed: 03/28/23 08:33> Integumentary/Breasts: Skin/Breast: Denies swelling, Denies rash and Denies jaundice <Jacki Ibanez PA-C Last Filed: 03/28/23 08:33> Neurologic: Denies dizziness and Denies focal weakness <ZACHARY Lerma Last Filed: 03/28/23 08:33> Endocrine: Endocrine: Denies palpitations <Jacki Ibanez PA-C Last Filed: 03/28/23 08:33> Allergic/Immunologic: Allergic/Immunologic: Denies wheezing <Jacki Ibanez PA-C Last Filed: 03/28/23 08:33> PMF Past Medical History Medical History: Medical History Acute perforated appendicitis Appendiceal abscess <ZACHARY Lerma Last Filed: 03/28/23 08:33> Surgical History Surgical History: Surgical History H/O hand surgery S/P right colectomy (~03/03/23) <ZACHARY Lerma Last Filed: 03/28/23 08:33> Social History Social History: Social History Household Members: Spouse and Children Housing: House Do you presently have visiting nurse or other home services: No Patient Tobacco Use Status: Never used Tobacco Smoked in Last 30 Days: No Use of substances other than those prescribed or required for medical reasons: No Any prior treatment program specific to substance use: No Advance Directives: No Advance Directives Information Provided: Yes service: No Current occupational status: employed <ZACHARY Lerma Last Filed: 03/28/23 08:33> Meds Allergies/Adverse reactions: Allergies Allergy/AdvReac Type Severity Reaction Status Date / Time No Known Allergies Allergy Verified 03/22/23 15:17 <ZACHARY Lerma Last Filed: 03/28/23 08:33> Active Medications: Current Medications Acetaminophen (Acetaminophen 325 Mg Tablet) 650 mg PO Q6H PRN PRN Reason: Pain, Mild (Pain Scale 1-3) Enoxaparin Sodium (Enoxaparin Sodium 40 Mg/0.4 Ml Syringe) 40 mg SUBCUT Q24H [facility] Last Admin: 03/28/23 05:30 Dose: 40 mg Ceftriaxone Sodium 1 gm/ (Sodium Chloride) 50 mls @ 100 mls/hr IV Q24H [facility] Vancomycin HCl 1,250 mg/ (Sodium Chloride) 250 mls @ 166.667 mls/hr IV Q12H [facility] Melatonin (Melatonin 3 Mg Tablet) 6 mg PO BEDTIME PRN PRN Reason: Insomnia Ondansetron HCl (Ondansetron Hcl 4 Mg/2 Ml Vial) 4 mg IVPUSH Q8H PRN PRN Reason: Nausea and Vomiting Pharmacy Consult (Consult Rx Vancomycin Dosing) 1 each MISCELLANE DAILY PRN PRN Reason: Consult order Pharmacy Consult (Consult Rx Perform Med Rec) 1 each MISCELLANE ONCE PRN PRN Reason: Consult order Sodium Chloride (0.9 % Sodium Chloride Flush 3 Ml Syringe) 3 ml IVFLUSH [facility] <ZACHARY Lerma Last Filed: 03/28/23 08:33> Home medications: Home Medications Medication Instructions Recorded Confirmed Last Taken Type No Known Home Meds 03/28/23 03/28/23 Unknown History <ZACHARY Lerma Last Filed: 03/28/23 08:33> Physical Exam Vital Signs: Vital Signs: Last Vital Signs Temp 99.2 F 03/28/23 05:21 Pulse 110 H 03/28/23 04:48 Resp 20 03/28/23 02:41 BP 89/56 L 03/28/23 04:48 Pulse Ox 94 03/28/23 02:41 O2 Del Method Room Air 03/28/23 02:41 BMI result Body Mass Index 25.8 <ZACHARY Lerma Filed: 03/28/23 08:33> Const: General: comfortable, no acute distress and alert <ZACHARY Lerma Filed: 03/28/23 08:33> Orientation/consciousness: patient oriented x3 <ZACHARY Lerma Filed: 03/28/23 08:33> Resp: Effort & Inspection: normal respiratory effort <Jacki Stoddarddeau ZACHARY Moura Last Filed: 03/28/23 08:33> Cardio: Rate: regular rate <ZACHARY Lerma Last Filed: 03/28/23 08:33> GI: Other: incisions are well healed, no surrounding erythema, induration, warmth or drainage noted <Jacki Stoddarddeau ZACHARY Moura Last Filed: 03/28/23 08:33> Inspection: No distended <Jacki Ibanez ZACHARY Moura Last Filed: 03/28/23 08:33> Palpation (GI): Soft to palpation, nontender, no guarding and not rigid <Jacki Stoddarddeau ZACHARY Moura Last Filed: 03/28/23 08:33> Percussion: Yes normal to percussion <Jacki Stoddarddeau ZACHARY Moura Last Filed: 03/28/23 08:33> Skin: General skin exam: no rashes or lesions noted <Jacki Ibanez ZACHARY Moura Last Filed: 03/28/23 08:33> Neuro: General: patient oriented x3 and moves all extremities <Jacki Stoddarddeau ZACHARY Moura Last Filed: 03/28/23 08:33> Extrem: General: Yes no clubbing, cyanosis or edema <Jacki Stoddardender ZACHARY Moura Last Filed: 03/28/23 08:33> Results Labs Result diagrams: 03/27/23 23:51 03/27/23 23:51 <Jacki Stoddarddeau ZACHARY Moura Last Filed: 03/28/23 08:33> Labs: Abnormal lab results 03/27/23 03/27/23 03/28/23 Range/Units 23:51 23:51 02:27 WBC 15.0 H (4.8-10.8) X10*3/uL RBC 4.47 L (4.60-5.80) X10*6/uL Hgb 12.7 L (14.0-18.0) g/dl Hct 39.0 L (42.0-52.0) % Neut % (Auto) 80.0 H (45-73) % Lymph % (Auto) 13.6 L (20-40) % Abs Immat Gran (auto) 0.05 H (0.00-0.03) X10*3/uL Absolute Neuts (auto) 12.0 H (2.0-8.3) x10*3/uL Random Glucose 121 H (60-115) mg/dL Total Protein 8.4 H (6.5-8.0) g/dL Ur Specific [place] >= 1.030 H (1.005-1.025) Short CBC 03/27/23 Range/Units 23:51 WBC 15.0 H (4.8-10.8) X10*3/uL Hgb 12.7 L (14.0-18.0) g/dl Hct 39.0 L (42.0-52.0) % Plt Count 185 (160-400) X10*3/uL BMP 03/27/23 23:51 Sodium 140 Potassium 4.2 Chloride 103 Carbon Dioxide 27 BUN 12 Creatinine 0.86 Calcium 9.3 D Liver Function 03/27/23 Range/Units 23:51 Total Bilirubin 0.4 (0.0-1.0) mg/dL AST 17 (5-37) U/L ALT 19 (0-40) U/L Alkaline Phosphatase 78 (39-117) U/L Albumin 4.3 (3.5-5.0) g/dL Urine 03/28/23 Range/Units 02:27 Urine Color Yellow Urine Appearance Clear Urine pH 7.0 (5.0-9.0) Ur Specific [place] >= 1.030 H (1.005-1.025) Urine Protein Negative (Neg-Trace) mg/dL Urine Glucose (UA) Negative (Negative) mg/dL All other labs normal. <Jacki Ibanez PA-C - Last Filed: 03/28/23 08:33> Imaging Abdomen CT scan report/results: report reviewed and image reviewed <Jacki Ibanez PA-C - Last Filed: 03/28/23 08:33> Assessment and Plan (1) Fever: Status: Acute <ZACHARY Lerma Last Filed: 03/28/23 08:33> (2) Low grade mucinous neoplasm of appendix: Status: Acute <Jacki Ibanez PA-C - Last Filed: 03/28/23 08:33> He is well known to me He had undergone right colon resection for question of an appendiceal abscess with note of LAMN on pathology He had been doing well but had fever yesterday afternoon Denies abdominal pain Had leukocytosis CT reviewed - no obvious intra-abdominal source of his fever Fever work Exam benign No evidence of wound infection Will consult Oncology in view of his LAMN Seen and examined independently <Louie Nair MD - Last Filed: 03/28/23 09:03> 37 year old male with recent hx of right colon resection for appendiceal mucinous neoplasm who presented with fevers and chills. Unclear source of fever however it does not appear related to right colon resection itself or cellulitis. Incision is well healing without signs of infection and CT shows mild inflammatory changes in the right midabdomen without free air or fluid to suggest anastomotic leak. Will continue to follow. <Jacki Ibanez PA-C - Last Filed: 03/28/23 08:33> Time Spent With Patient Time: Total time managing care of this patient today ____ minutes. <Jacki Ibanez PA-C - Last Filed: 03/28/23 08:33> Procedures Date of Service Date of Service: 03/28/23 <Jacki Ibanez PA-C - Last Filed: 03/28/23 08:33> 03/28/23 <Louie Nair MD - Last Filed: 03/28/23 09:03>
[2023-03-28] MEDS: 0.9 % Sodium Chloride Flush 3 ML SYRINGE IVFLUSH ×3 (08:23→23:30)
[2023-03-28 09:13] LABS: Creatinine Clr Calc Pharmacy 128.4; Estimated Glomerular Filt Rate > 60
--- NOTE | 2023-03-28 10:42 | P.CNHO_ITS ---
Subjective - Subjective Chief complaint: Consult for: Patient: new to practice Consult date: 03/28/23 Primary Care Provider: JESSICA Cleaning Medical Summary: DIAGNOSIS: Low-grade mucinous appendiceal neoplasm. HPI - Consult Narrative Reason for consult: Consult for: Low-grade mucinous Appendiceal carcinoma. Narrative: Terrence Diamond is a 37 year old gentleman, referred by Dr. Nair. Patient had noticed some infrequent discomfort in the right lower quadrant over the 2-3 years. However he noted that November of this year it became rather more consistent. Gradually it became a pain which got more severe. He then went to urgent care. He was told that he has a cyst in the appendix. He was referred to the ER where initially he had to have a drain placed for a week. He then developed high fever. On March 03, he underwent a right hemicolectomy. Pathology revealed: Low-grade appendiceal mucinous neoplasm with extra appendiceal acellular mucin. He presented to the emergency department for evaluation of fevers and chills. Patient states that he developed local cellulitis around surgical site around 03/11. There was also drainage of serosanguineous fluid from around the ER. Patient did not take any antibiotics for it. He saw Dr. Araiza is on 03/22 and underwent distal staple removal to release some serosanguineous fluid. On the day of presentation, patient developed fevers and chills and presented to the ER as he was told by his surgeon to come to the ER whenever he develops fevers or chills. Patient denies nausea, vomiting, abdominal pain, changes in urinary or bowel habits. No chest discomfort, palpitations or shortness of breath. No tick bites that he is aware of. No recent travels or hiking. In the emergency department, patient was found to be tachycardic, hypertensive and leukocytosis seen CT scan of the abdomen revealed: Postsurgical changes of partial colectomy with ileocolic anastomosis in the right midabdomen. Inflammatory changes are seen in this area. No fluid collection. No free air. PATHOLOGY from March 03: Low-grade appendiceal mucinous neoplasm(LAMN), with extra appendiceal acellular mucin. Acellular mucin weights the visceral peritoneum. Eighteen lymph nodes negative for malignancy. Stage: pT4a,N0. Review of Systems Constitutional: Constitutional: Reports chills, Reports fatigue, Reports fever(s) and Reports malaise Cardiovascular: Cardiovascular: Reports no additional cardiovascular complaints Respiratory: Respiratory: Reports no additional respiratory complaints Gastrointestinal: Gastrointestinal: Reports no additional gastrointestinal complaints Genitourinary: Genitourinary: Reports no additional male genitourinary complaints Endocrine: Endocrine: Reports fatigue [facility] Medical History: Acute perforated appendicitis, Appendiceal abscess: CT scan from 10/09 revealed: The appendix is dilated, fluid-filled and thick-walled measuring up to 1.5 cm compatible with acute appendicitis terminating in a approximately 6.1 cm periappendiceal fluid collection suggesting perforation. There is high density material within the collection which may reflect appendicoliths or other bowel contents. No diya rim enhancement diya extraluminal air. He underwent CT-guided drainage of the abscess cavity by IR. He was sent home on antibiotics. He then had surgery on March 03 electively. Surgical History: H/O hand surgery S/P right colectomy (~03/03/23) Family history: No family history of early CAD. Grandma had cancer of the appendix at the age of 92. Social History; He works as a nurse treat admin secretary and musician. He is . He has 1 3-year-old child. Denies smoking nor alcohol. Household Members: Spouse and Children Housing: House Do you presently have visiting nurse or other home services: No Patient Tobacco Use Status: Never used Tobacco Smoked in Last 30 Days: No Use of substances other than those prescribed or required for medical reasons: No Any prior treatment program specific to substance use: No Advance Directives: No Advance Directives Information Provided: Yes Review of Systems - Constitutional Reports no additional constitutional complaints - Eyes Reports no additional eye complaints - ENT Reports no additional ear, nose, mouth, and throat complaints - Cardiovascular Reports no additional cardiovascular complaints - Respiratory Reports no additional respiratory complaints - Gastrointestinal Reports no additional gastrointestinal complaints - Genitourinary Genitourinary: Reports no additional male genitourinary complaints - Musculoskeletal Reports no additional musculoskeletal complaints - Integumentary/Breasts Skin/Breast: Reports no additional skin complaints - Neurologic Denies dizziness, Denies focal weakness - Psychiatric Reports no additional psychiatric complaints - Endocrine Reports no additional endocrine complaints - Hematologic/Lymphatic Reports no additional hematologic/lymphatic complaints - Allergic/Immunologic Reports no additional allergic/immunologic complaints [facility] Medical History: Medical History (Last Reviewed 03/28/23 @ 05:47 by Jarred Hopkins MD) Acute perforated appendicitis Appendiceal abscess Functional capacity: independent ambulation Patient : No Surgical History: Surgical History (Last Reviewed 03/28/23 @ 05:47 by Jarred Hopkins MD) H/O hand surgery S/P right colectomy Onset Date: ~03/03/23 Social History: Social History (Last Reviewed 03/28/23 @ 05:47 by Jarred Hopkins MD) Living Situation History: Household Members: Spouse Household Members: Children Housing: House Do you presently have visiting nurse or other home services: No Tobacco History: Patient Tobacco Use Status: Never used Tobacco Substance Use History: Substance Use Type: Marijuana Occupation Assessmet: service: No Current occupational status: employed Home Medications and Allergies Current Medications: Current Medications Acetaminophen (Acetaminophen 325 Mg Tablet) 650 mg PO Q6H PRN PRN Reason: Pain, Mild (Pain Scale 1-3) Enoxaparin Sodium (Enoxaparin Sodium 40 Mg/0.4 Ml Syringe) 40 mg SUBCUT Q24H [facility] Last Admin: 03/28/23 05:30 Dose: 40 mg Ceftriaxone Sodium 1 gm/ (Sodium Chloride) 50 mls @ 100 mls/hr IV Q24H [facility] Vancomycin HCl 1,250 mg/ (Sodium Chloride) 250 mls @ 166.667 mls/hr IV Q12H [facility] Melatonin (Melatonin 3 Mg Tablet) 6 mg PO BEDTIME PRN PRN Reason: Insomnia Ondansetron HCl (Ondansetron Hcl 4 Mg/2 Ml Vial) 4 mg IVPUSH Q8H PRN PRN Reason: Nausea and Vomiting Pharmacy Consult (Consult Rx Vancomycin Dosing) 1 each MISCELLANE DAILY PRN PRN Reason: Consult order Pharmacy Consult (Consult Rx Perform Med Rec) 1 each MISCELLANE ONCE PRN PRN Reason: Consult order Sodium Chloride (0.9 % Sodium Chloride Flush 3 Ml Syringe) 3 ml IVFLUSH QSHIFT [facility] Last Admin: 03/28/23 08:23 Dose: 3 ml Allergies Allergy/AdvReac Type Severity Reaction Status Date / Time No Known Allergies Allergy Verified 03/22/23 15:17 Physical Exam Vital signs: Vital Signs Temp 99.2 F 03/28/23 05:21 Pulse 110 H 03/28/23 04:48 Resp 20 03/28/23 02:41 BP 89/56 L 06/06/23 04:48 Pulse Ox 94 03/28/23 02:41 O2 Del Method Room Air 03/28/23 02:41 Intake & Output 03/27/23 03/28/23 03/28/23 18:59 06:59 18:59 Intake Total 3781.37 / 3781.37 Balance 3781.37 / 3781.37 Intake: Intake, IV Amount 3781.37 / 3781.37 0.9 % Sodium Chloride 1,000 ml 3381.37 / 3381.37 @ 999 mls/hr IV .Q1H1M MICHAEL Rx#: [id number] cefTRIAXone sodium 1 gm In 0.9 50 / 50 % Sodium Chloride 50 ml @ 100 mls/hr IV ONCE ONE Rx#: [id number] metroNIDAZOLE/NS 500 mg In 100 100 / 100 ml @ 100 mls/hr IV ONCE ONE Rx# :[id number] vancomycin HCL 1,250 mg In 0.9 250 / 250 % Sodium Chloride 250 ml @ 166. 667 mls/hr IV ONCE ONE Rx#: [id number] Other: Breakfast % Eaten 100% Number of Unmeasured Voids 1 Urine Bathroom Weight 79.379 kg Weight 79.379 kg - Constitutional Present: mild distress - Routine HEENT Exam Head: Present: normal inspection, normocephalic Eye: Present: normal appearance ENT: Present: mucous membranes moist - Routine Neck Exam Present: supple - Routine Respiratory Exam Present: CTAB - Routine Cardiovascular Exam Cardiovascular: Present: RRR, S1, S2 - Routine Abdominal Exam Present: soft, tenderness. Absent: nontender - Routine Extremities Exam Present: nontender - Routine Skin Exam Present: intact, normal turgor - Routine Neurological Exam Present: alert, oriented X3 Hem/Onc Consult Result - Labs CBC & Chem 7: 03/29/23 05:45 03/29/23 05:45 Labs: Short CBC 03/27/23 Range/Units 23:51 WBC 15.0 H (4.8-10.8) X10*3/uL Hgb 12.7 L (14.0-18.0) g/dl Hct 39.0 L (42.0-52.0) % Plt Count 185 (160-400) X10*3/uL BMP 06/05/23 06/06/23 23:51 08:45 Sodium 140 Potassium 4.2 Chloride 103 Carbon Dioxide 27 BUN 12 Creatinine 0.86 0.78 Calcium 9.3 D Liver Function 03/27/23 Range/Units 23:51 Total Bilirubin 0.4 (0.0-1.0) mg/dL AST 17 (5-37) U/L ALT 19 (0-40) U/L Alkaline Phosphatase 78 (39-117) U/L Albumin 4.3 (3.5-5.0) g/dL Urine 03/28/23 Range/Units 02:27 Urine Color Yellow Urine Appearance Clear Urine pH 7.0 (5.0-9.0) Ur Specific [place] >= 1.030 H (1.005-1.025) Urine Protein Negative (Neg-Trace) mg/dL Urine Glucose (UA) Negative (Negative) mg/dL Assessment and Plan Patient Active problem list reviewed?: Yes (1) Low grade mucinous neoplasm of appendix Status: Acute Assessment and plan: This is a pleasant 37-year-old gentleman, status post right hemicolectomy on 03/03/[address] Nair. Pathology revealed: PATHOLOGY from March 03: Low-grade appendiceal mucinous neoplasm(LAMN), with extra appendiceal acellular mucin. Acellular mucin weights the visceral peritoneum. Eighteen lymph nodes negative for malignancy. Stage: pT4a,N0. Tumor size: 1.2 cm. Histologic type: Low-grade appendiceal mucinous neoplasm. Tumor extension: Acellular mucin invades visceral peritoneum. Margins: Negative. LV I: Not identified. Perineural invasion: Not identified. Satellite tumor nodules: Not identified. Lymph nodes: 0/18. He came in to ED, today for evaluation of fevers and chills. No definite etiology. CT scan of the abdomen revealed: Postsurgical changes of partial colectomy with ileocolic anastomosis in the right midabdomen. Inflammatory changes are seen in this area. No fluid collection. No free air. He has been resuscitated with IV crystalloids. Lactic acid and blood cultures obtained. Treating with empiric IV antibiotics. Tick serology pending. Seen by general surgery for drainage of serosanguineous fluid from incision site. PLAN: To workup fever sources as you are doing. To continue empiric antibiotics pending results. Will refer him to Dr. Daniel Clarke, in [place]( expert in HYPEC technique.) as an outpatient, once he recovers. Thank you for the consult, I will follow along with you, Cc: dr. Nair. - Time Spent With Patient Time Spent with Patient (in minutes): 30
--- NOTE | 2023-03-28 12:46 | MHC.CM.PN ---
Met with patient in regards to discharge planning. Patient lives with his and son, ambulates independently and had no services prior to coming to the hospital. PCP verified. Patient denies having HCP. Not interested in completing one at this time. Patient received 2 Moderna vaccines. No services anticipated to be needed because patient is not homebound. Patient's will transport patient home when medically stable. Continue to monitor for d/c needs.
--- NOTE | 2023-03-28 14:24 | PM.EVENT ---
Event Note Date of Service: 03/28/23 Event Note: Seen afternoon rounds He says that he feels like he is having a sore throat Has some body malaise no abdominal pain No nausea or vomiting No GI complaints Abdominal exam benign Continue to investigate for source of fever and leukocytosis I have consulted the oncologist in view of his low grade appendiceal mucinous neoplasm Time Spent With Patient Time: Total time managing care of this patient today ____ minutes.
[2023-03-28] MEDS: Acetaminophen 325 MG TABLET 650 MG PO ×2 (15:11→22:56)
--- NOTE | 2023-03-28 16:35 | PC.NURSE ---
Dr Cerda notified of temperature 100.8, P 102 and BP 99/55. IV fluids requested.
[2023-03-28] MEDS: Lactated Ringers 1,000 ML 150 ML IVCONT (17:11)
[2023-03-29] VITALS: BP 100/55; PULSE 100; RESP 18; TEMP 36.7; O2SAT 96
[2023-03-29] MEDS: Lactated Ringers 1,000 ML 150 ML IVCONT ×2 (00:44→09:14)
[2023-03-29 05:54] LABS: MANUAL DIFF FLAG NO
[2023-03-29 05:58] LABS: Basophils Percent Auto 0.2 % (0-2); Eosinophils Absolute Auto 0.1 X10*3/uL (0.0-0.4); Eosinophils Percent Auto 0.9 % (0-4); Hematocrit 33.7 % (42.0-52.0); Hemoglobin 10.7 g/dl (14.0-18.0); Imm Gran Abs Auto 0.04 X10*3/uL (0.00-0.03); Imm Gran Pct Auto 0.4 % (0.0-0.4); Lymphocytes Absolute Auto 2.6 X10*3/uL (1.2-4.9); Lymphocytes Percent Auto 24.3 % (20-40); Mean Corpuscular HGB Conc 31.8 g/dl (31.0-36.0); Mean Corpuscular Hemoglobin 28.2 pg (27.0-33.0); Mean Corpuscular Volume 88.9 fL (80.0-98.0); Mean Platelet Volume 11.5 fL (9.4-12.4); Monocytes Percent Auto 9.4 % (2-11); Neutrophils Absolute Auto 6.8 x10*3/uL (2.0-8.3); Neutrophils Percent Auto 64.8 % (45-73); Platelet Count 142 X10*3/uL (160-400); Red Blood Count 3.79 X10*6/uL (4.60-5.80); Red Cell Distribution Width 13.7 % (11.0-16.0); White Blood Count 10.5 X10*3/uL (4.8-10.8)
[2023-03-29] MEDS: vancomycin HCL 1,250 MG in 0.9 % Sodium Chloride 250 ML 166.67 MG IV (05:59)
[2023-03-29] MEDS: Enoxaparin Sodium 40 MG/0.4 ML SYRINGE SUBCUT (06:04)
[2023-03-29 06:14] LABS: Anion Gap 9 (12-20); Blood Urea Nitrogen 6 mg/dL (9-16); Calcium 8.4 mg/dL (8.4-10.2); Carbon Dioxide 27 mmol/L (22-29); Chloride 109 mmol/L (96-108); Creatinine Clr Calc Pharmacy 135.3; Estimated Glomerular Filt Rate > 60; Glucose Random 101 mg/dL (60-115); Potassium 3.7 mmol/L (3.3-5.1); Sodium 141 mmol/L (135-145)
[2023-03-29 07:11] VITALS: BP 105/67; PULSE 73; RESP 16; TEMP 36.4; O2SAT 99
--- NOTE | 2023-03-29 10:46 | PM.PNGS ---
Subjective Subjective Date of Service: 03/29/23 <Jacki Ibanez PA-C - Last Filed: 03/29/23 10:50> 03/29/23 <Louie Nair MD - Last Filed: 03/29/23 11:58> Interval history: Feels overall better this morning. Reports also has sore throat and fevers. Tolerating solid diet. <Jacki Ibanez PA-C - Last Filed: 03/29/23 10:50> Physical Exam Vital Signs: Vital Signs: Last Vital Signs Temp 97.6 F 03/29/23 07:11 Pulse 73 03/29/23 07:11 Resp 16 03/29/23 07:11 BP 105/67 03/29/23 07:11 Pulse Ox 99 03/29/23 07:11 O2 Del Method Room Air 03/29/23 07:11 BMI result Body Mass Index 25.8 <Jacki Ibanez PA-C - Last Filed: 03/29/23 10:50> Const: General: comfortable, no acute distress and alert <Jacki Ibanez PA-C - Last Filed: 03/29/23 10:50> Orientation/consciousness: patient oriented x3 <Jacki Ibanez PA-C - Last Filed: 03/29/23 10:50> Resp: Effort & Inspection: normal respiratory effort <Jacki Ibanez PA-C - Last Filed: 03/29/23 10:50> GI: Inspection: No distended <Jacki Ibanez PA-C - Last Filed: 03/29/23 10:50> Palpation (GI): Soft to palpation, nontender, no guarding and not rigid <Jacki Ibanez PA-C - Last Filed: 03/29/23 10:50> Skin: General skin exam: no rashes or lesions noted <ZACHARY Lerma Last Filed: 03/29/23 10:50> Neuro: General: patient oriented x3 and moves all extremities <ZACHARY Lerma Last Filed: 03/29/23 10:50> Objective Data Active Medications Acetaminophen (Acetaminophen 325 Mg Tablet) 650 mg PO Q6H PRN PRN Reason: Pain, Mild (Pain Scale 1-3) Last Admin: 03/28/23 22:56 Dose: 650 mg Documented By: TARUN Enoxaparin Sodium (Enoxaparin Sodium 40 Mg/0.4 Ml Syringe) 40 mg SUBCUT Q24H FOR[facility]LY [facility], 1928[facility]1983 Last Admin: 03/29/23 06:04 Dose: 40 mg Documented By: TARUN Ceftriaxone Sodium 1 gm/ (Sodium Chloride) 50 mls @ 100 mls/hr IV Q24H FOR[facility], [facility]1983 Last Infusion: 03/28/23 23:28 Dose: 0 mls/hr Documented By: TARUN Vancomycin HCl 1,250 mg/ (Sodium Chloride) 250 mls @ 166.667 mls/hr IV Q12H FOR[facility]LY [facility], [facility]1983 Last Infusion: 03/29/23 07:48 Dose: 0 mls/hr Documented By: ESTELITA Lactated Ringer's (Lr) 1,000 mls @ 150 mls/hr IVCONT .Q6H40M FOR[facility], [facility]1983 Last Admin: 03/29/23 09:14 Dose: 150 mls/hr Documented By: ESTELITA Melatonin (Melatonin 3 Mg Tablet) 6 mg PO BEDTIME PRN PRN Reason: Insomnia Ondansetron HCl (Ondansetron Hcl 4 Mg/2 Ml Vial) 4 mg IVPUSH Q8H PRN PRN Reason: Nausea and Vomiting Pharmacy Consult (Consult Rx Vancomycin Dosing) 1 each MISCELLANE DAILY PRN PRN Reason: Consult order Pharmacy Consult (Consult Rx Perform Med Rec) 1 each MISCELLANE ONCE PRN PRN Reason: Consult order Sodium Chloride (0.9 % Sodium Chloride Flush 3 Ml Syringe) 3 ml IVFLUSH QSHIFT FOR[facility]LY [facility], [facility] Last Admin: 03/29/23 07:22 Dose: Not Given Documented By: ESTELITA Non-Admin Reason: IV Running <Jacki Ibanez PA-C - Last Filed: 03/29/23 10:50> Labs CBC & Chem 7: 03/29/23 05:45 03/29/23 05:45 <Jacki Ibanez PA-C - Last Filed: 03/29/23 10:50> Labs: Laboratory Results - last 24 hr 03/29/23 03/29/23 03/29/23 05:45 05:45 05:45 MCV 88.9 MCH 28.2 MCHC 31.8 RDW 13.7 Plt Count 142 L MPV 11.5 Immature Gran % (Auto) 0.4 Neut % (Auto) 64.8 Lymph % (Auto) 24.3 [place] % (Auto) 9.4 Eos % (Auto) 0.9 Baso % (Auto) 0.2 Lymph # (Auto) 2.6 [place] # (Auto) 1.0 Eos # (Auto) 0.1 Baso # (Auto) 0.0 Abs Immat Gran (auto) 0.04 H Absolute Neuts (auto) 6.8 Absolute Nucleated RBC 0.000 Nucleated RBC % (auto) 0.0 Anion Gap 9 L Estim Creat Clear Calc 135.3 Cancelled Estimated GFR > 60 Cancelled Random Glucose 101 Calcium 8.4 D <Jacki Ibanez PA-C - Last Filed: 03/29/23 10:50> Microbiology Microbiology Results: Microbiology 03/28/23 00:41 Blood Culture - Preliminary Blood - Venous No growth after 24 hours. 03/28/23 00:41 Blood Culture - Preliminary Blood - Venous No growth after 24 hours. 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 Fever and leukocytosis unrelated to colon resection. Now afebrile, WBC improving. Await blood cultures. Heme/onc consult requested. <Jacki Ibanez PA-C - Last Filed: 03/29/23 10:50> Time Spent With Patient Time: Total time managing care of this patient today ____ minutes. <Jacki Ibanez PA-C - Last Filed: 03/29/23 10:50> Quality Stroke Does the patient have a stroke diagnosis?: No <Jacki Ibanez PA-C - Last Filed: 03/29/23 10:50> VTE Prior VTE?: No <Jacki Ibanez PA-C - Last Filed: 03/29/23 10:50> VTE Risk Level:: Medical - moderate - high <ZACHARY Lerma Last Filed: 03/29/23 10:50> VTE Device Contraindication: Treatment Not Indicated <Jacki Ibanez PA-C - Last Filed: 03/29/23 10:50> VTE Drug Contraindication: N/A - Med Ordered <ZACHARY Lerma Last Filed: 03/29/23 10:50>
--- NOTE | 2023-03-29 12:09 | P.DS_ITS ---
DS: Providers Provider Date of Service: 03/29/23 Date of admission: 03/28/23 05:21 Primary care physician: JESSICA Cleaning Consults: 03/28/23 05:23 Consult to General Surgery Routine Consulting Provider: Louie Nair Reason for consultation: recent appindecetomy, now with sepsis 03/28/23 09:03 Consult to Hematology / Oncology Routine Consulting Provider: [facility] [place] Oncology/Hematology Reason for consultation: LAMN DS: Diagnosis Discharge Diagnosis (1) Low grade mucinous neoplasm of appendix: Status: Acute (2) Fever: Status: Acute DS: Summary Hospital Course Hospital Course: Chief Complaint: Fevers/chills This is a 37-year-old male who underwent right colon resection on 03/03/[address] Nair with pathology report showing low-grade appendiceal mucinous neoplasm, presents to the emergency department for evaluation of fevers and chills.? Patient states that he developed local cellulitis around surgical site around 03/11.? There was also drainage of serosanguineous fluid from around the ER.? Patient did not take any antibiotics for it.? He saw Dr. Araiza is on 03/22 and underwent distal staple removal to release some serosanguineous fluid.? On the day of presentation, patient developed fevers and chills and presented to the ER as he was told by his surgeon to come to the ER whenever he develops fevers or chills.? Patient denies nausea, vomiting, abdominal pain, changes in urinary or bowel habits.? No chest discomfort, palpitations or shortness of breath.? No tick bites that he is aware of.? No recent travels or hiking. In the emergency department, patient was found to be tachycardic, hypertensive and leukocytosis seen Hospital course: He presented with fever in setting of recent colon resection, wound look clean, CT of abdomen no acute finding, WBC were high at 15, CXR no PNA, blood cultures thus far negaive, covid, rsv influenza, flu negative, Lyme serology pending, Babesia and Phygocytophilum pending. He was given empiric Ceftriaxone , Vanco and Zosyn and WBC are now normal and fever have resolved and he feels well, pending lyme and other serolgogy mentioned. He complained of sore throat so a Strep throat was done and found to be positive and he will be treated with Amoxillin for 7 days. . For history of Low grade mucinous neoplasm of appendix-- To follow up with On cology for management, he is been refered to [place] Time Spent with Patient Time attestation: Total time managing care of this patient today ____ minutes. Discharge coordination time: Greater than 30 minutes Quality: Safe Use of Opioids Does Pt have an Active Cancer Diagnosis on the Problem List?: No Quality: Stroke Does the patient have a stroke diagnosis?: No Physical Exam Vital Signs: Vital Signs: Last Vital Signs Temp 97.6 F 03/29/23 07:11 Pulse 73 03/29/23 07:11 Resp 16 03/29/23 07:11 BP 105/67 03/29/23 07:11 Pulse Ox 99 03/29/23 07:11 O2 Del Method Room Air 03/29/23 07:11 BMI result Body Mass Index 25.8 DS: Data Data Completed and Pending Completed studies during hospitalization [Text1]: Procedures Drainage of Appendix with Drainage Device, Percutaneous Approach (12/10/22) Resection of Right Large Intestine, Open Approach (03/03/23) Labs on day of discharge: Laboratory Results - last 24 hr 03/29/23 03/29/23 03/29/23 05:45 05:45 05:45 WBC 10.5 RBC 3.79 L Hgb 10.7 L Hct 33.7 L MCV 88.9 MCH 28.2 MCHC 31.8 RDW 13.7 Plt Count 142 L MPV 11.5 Immature Gran % (Auto) 0.4 Neut % (Auto) 64.8 Lymph % (Auto) 24.3 [place] % (Auto) 9.4 Eos % (Auto) 0.9 Baso % (Auto) 0.2 Lymph # (Auto) 2.6 [place] # (Auto) 1.0 Eos # (Auto) 0.1 Baso # (Auto) 0.0 Abs Immat Gran (auto) 0.04 H Absolute Neuts (auto) 6.8 Absolute Nucleated RBC 0.000 Nucleated RBC % (auto) 0.0 Sodium 141 Potassium 3.7 Chloride 109 H Carbon Dioxide 27 Anion Gap 9 L BUN 6 L Creatinine 0.74 Cancelled Estim Creat Clear Calc 135.3 Cancelled Estimated GFR > 60 Cancelled Random Glucose 101 Calcium 8.4 D Preliminary micro results at discharge 03/28/23 00:41 Blood Culture - Preliminary Blood - Venous No growth after 24 hours. 03/28/23 00:41 Blood Culture - Preliminary Blood - Venous No growth after 24 hours. Discharge Plan Discharge Anticipated Discharge Date/Time: 03/29/23 12:07 Patient Disposition: Home, Self-Care Discharge Diagnosis: Strep throat Referrals: Myriam Roper FNP [Primary Care Provider] - 1 Week Discharge Medications: New amoxicillin 500 mg tablet 500 mg PO Q12H Qty: 14 0RF Discharge Orders: Discharge Order (Routine); Ordered 03/29/23 Ordered By: Cabrera Cerda Diet: Advance to usual diet Activity on Discharge: As tolerated Stand Alone Forms: Patient Portal Discharge page Care Plan Goals: Strep Pharyngitis Health Concerns: Fever of unknown origin Plan of Treatment: Take Amoxillin for Strep throat. If you continued to have fevers please come back to the emergency department. Follow-up with Oncology as a previously arranged. Assessment: as above
[2023-03-29 13:09] LABS: IDNOW Serial# 08D9AD1C; Strep A Nucleic Acid Positive (Negative)
--- NOTE | 2023-03-29 13:40 | MHC.CLN ---
Addendum entered by Annetta Story, DONNIE 03/29/23 14:33: PATIENT REPORTS GOOD APPETITE AND INTAKE. NO NUTRITIONAL SUPPLEMENT AT THIS TIME. Original Note: NUTRITION CONSULT FOR 10# WEIGHT LOSS. REVIEW OF WEIGHT HX SHOWS WEIGHT LOSS X 2 MONTHS -9.5%. HOSPITALIZATION DURING THAT TIME PERIOD FOR PERFORATED APPENDIX WITH COLECTOMY. WEIGHT LOSS LIKELY SECONDARY TO ACUTE MEDICAL CONDITION, SURGERY AND HOSPITALIZATION. CURRENT INTAKE APPEARS GOOD/EXCELLENT.
[2023-03-29] MEDS: 0.9 % Sodium Chloride Flush 3 ML SYRINGE IVFLUSH (15:29)
[2023-03-29 15:35] VITALS: BP 117/74; PULSE 89; RESP 18; TEMP 36.6; O2SAT 97
--- NOTE | 2023-03-29 15:57 | MHC.CM.PN ---
PATIENT IS DC HOME WITH OUTPATIENT FOLLOW UP RN AWARE OF PLAN.
[2023-03-30 02:23] LABS: Lyme Abs Screen <0.90 index
[2023-04-06 15:58] LABS: Babesia IgG <1:64 titer (<1:64); Babesia IgM <1:20 titer (<1:20)
[2023-04-07 08:58] LABS: A. Phagocytophilum Ab IgG <1:64 (<1:64); A. Phagocytophilum Ab IgM <1:20 (<1:20); E. Chaffeensis Ab IgG <1:64 (<1:64); E. Chaffeensis Ab IgM <1:20 (<1:20)
== END 2023-03-29 16:14 | disposition home or self-care (01) | DRG 113 ==
LOC: HO.ED 03-28 00:21 → HO.EDOVER 03-28 05:30 → HO.S3 03-28 15:28
PROVIDERS: Admitting Provider Student in an Organized Health Care Education/Training Program; Emergency Provider Emergency Medicine Emergency Medical Services; PCP Nurse Practitioner Family; Visit Provider Internal Medicine
DX: J02.0 Streptococcal pharyngitis (principal); C18.1 Malignant neoplasm of appendix; Z88.0 Allergy status to penicillin
CPT/HCPCS: 0241U; 36415; 71045; 74177; 80048; 80053; 81001; 82565; 83605; 85025; 86617; 86618; 86666; 86753; 87040; 87651; 99285; J0696; J1650; J1885; J3371; Q9967

== ENCOUNTER → 2023-04-10 13:15 | Outpatient (BNVA) | payer BC, SELFPAY | PROVIDERS: PCP Nurse Practitioner Family; Visit Provider Surgery ==

== ENCOUNTER 2023-05-08 15:52 | Outpatient (AMB) | payer BC, SELFPAY ==
--- NOTE | 2023-05-08 16:08 | MHC.OFFVIS ---
Intake Vital Signs 05/08/23 16:12 Weight 177 lb 0.005 oz BP 129/84 Blood Pressure Location Rt brachial Position Sitting Pulse 71 Intake Visit Reasons: s/p right colon resection, 1 mo follow up Intake Note: This patient presents for a one month follow-up assessment status post right colon resection. Patient denies complaints at this time. Ent Physician Required: No Accompanied by: Self / Same As Patient Allergies No Known Allergies Allergy (Verified 05/08/23 16:09) Medication List - Last Reconciled 05/08/23 by Louie Nair MD No Known Home Meds HPI s/p right colon resection, 1 mo follow up HPI Details He is here for follow-up after right colon resection last Feb, 2023 for low-grade appendiceal mucinous neoplasm. He says he is feeling well. He denies any GI complaints. He feels that he is the back to his baseline. He had been seen by Dr. Clarke of Oncology in [facility] for his LAMN 3 weeks ago. He is to see him again in September and a CT scan has been scheduled by him in [facility] for that time. [facility] Medical History Acute perforated appendicitis Appendiceal abscess Suture granuloma Surgical History H/O hand surgery S/P right colectomy (~03/03/23) Social History Household Members: Spouse and Children Housing: House Do you presently have visiting nurse or other home services: No Patient Tobacco Use Status: Never used Tobacco Substance Use Type: Marijuana service: No Current occupational status: employed [employer] Const Denies chills and Denies fever(s) Card Denies chest pain, Denies dyspnea and Denies dyspnea on exertion Resp Denies cough, Denies dyspnea and Denies dyspnea on exertion GI Denies hematochezia and Denies change in bowel habits Denies hematuria and Denies difficulty urinating Musc Denies back pain and Denies limited range of motion Neuro Denies focal weakness and Denies convulsions Psych Denies depression and Denies mood swings Physical Exam Vital Signs: Last Vital Signs Pulse 71 05/08/23 16:12 BP 129/84 05/08/23 16:12 Const General: comfortable and no acute distress Resp Effort & Inspection: normal respiratory effort Cardio Rate: regular rate GI Other: Midline incision well healed Palpation (GI): Soft to palpation, not firm and nontender Assessment & Plan Assessment & Plan (1) Low grade mucinous neoplasm of appendix: Code(s): D37.3 - Neoplasm of uncertain behavior of appendix Plan: Status post right colon resection. He is doing very well. Incision is well healed. He has good GI functions He had been seen by [facility] for his LAMN. Close surveillance is being for him in [place]. He is scheduled to have a CAT scan in September with them as well as a follow-up with Dr. Clarke. I will see him in the office in about 3 months to see how is doing. Coding Level of Care Code Global (75922) Diagnoses Low grade mucinous neoplasm of appendix D37.3
[2023-05-08 16:12] VITALS: BP 129/84; PULSE 71
== END 2023-05-08 16:22 | disposition home or self-care (01) ==
PROVIDERS: PCP Nurse Practitioner Family; Visit Provider Surgery
DX: D37.3 Neoplasm of uncertain behavior of appendix (principal)
CPT/HCPCS: 99024

== ENCOUNTER → 2023-05-08 15:52 | Outpatient (BNVA) | payer BC, SELFPAY | PROVIDERS: PCP Nurse Practitioner Family; Visit Provider Surgery | DX: D37.3 Neoplasm of uncertain behavior of appendix (principal) ==

== ENCOUNTER 2023-08-07 15:43 | Outpatient (AMB) | payer BC, MEDICAID, SELFPAY ==
--- NOTE | 2023-08-07 15:46 | A.OFFVIS_ITS ---
Intake Vital Signs 08/07/23 15:52 Weight 181 lb BP 114/71 Blood Pressure Location Rt brachial Position Sitting Pulse 73 Intake Visit Reasons: 3 mth follow up colon resection Intake Note: This patient presents for a three month follow-up status post colon resection. Patient c/o; reports no changes or complaints at this time. 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 He says he feels well overall. He denies any significant complaints He describes having 2 episodes of very the past 3 months but other than that, he says that he has been feeling great. He denies any weight loss or fever or chills. He denies any GI complaints. [facility] Medical History Suture granuloma Appendiceal abscess Acute perforated appendicitis Surgical History S/P right colectomy (~03/03/23) H/O hand surgery Social History Household Members: Spouse and Children Housing: House Do you presently have visiting nurse or other home services: No Patient Tobacco Use Status: Never used Tobacco Substance Use Type: Marijuana service: No Current occupational status: employed [employer] Const Denies chills and Denies fever(s) Card Denies chest pain, Denies dyspnea and Denies dyspnea on exertion Resp Denies cough, Denies dyspnea and Denies dyspnea on exertion GI Denies hematochezia and Denies change in bowel habits Denies hematuria and Denies difficulty urinating Musc Denies back pain and Denies limited range of motion Neuro Denies focal weakness and Denies convulsions Psych Denies depression and Denies mood swings Physical Exam Vital Signs: Last Vital Signs Pulse 73 08/07/23 15:52 BP 114/71 08/07/23 15:52 Const General: comfortable and no acute distress Orientation/consciousness: patient oriented x3 Neck Neck: Yes no lymphadenopathy Resp Auscultation: clear to auscultation bilaterally Cardio Rhythm: regular rhythm GI Other: No palpable masses in the abdomen Palpation (GI): Soft to palpation, nontender and no guarding Neuro General: patient oriented x3 Assessment & Plan Assessment & Plan (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 He had seen the specialist in [place] for this and he had been scheduled for follow-up CT scan in [place] this September, He currently denies significant complaints and says he feels well overall. I reminded him about the importance of doing his CAT scan this September. I will see him in the office after that. He says that he has a follow-up with his oncologist in [place] as well. Coding Level of Care Code Est Pt Level 3 (06591) Diagnoses Low grade mucinous neoplasm of appendix D37.3
[2023-08-07 15:52] VITALS: BP 114/71; PULSE 73
== END 2023-08-07 16:06 | disposition home or self-care (01) ==
PROVIDERS: PCP Nurse Practitioner Family; Visit Provider Surgery
DX: D37.3 Neoplasm of uncertain behavior of appendix (principal)
CPT/HCPCS: 99213

== ENCOUNTER → 2023-08-07 15:43 | Outpatient (BNVA) | payer BC, SELFPAY | PROVIDERS: PCP Nurse Practitioner Family; Visit Provider Surgery ==

== ENCOUNTER 2023-10-30 15:47 | Outpatient (AMB) | payer BC, SELFPAY ==
--- NOTE | 2023-10-30 15:48 | A.OFFVIS_ITS ---
Intake Vital Signs 10/30/23 15:53 BP 109/60 Blood Pressure Location Rt brachial Position Sitting Pulse 63 Intake Visit Reasons: Low grade mucinous neoplasm of appendix (LAMN) Intake Note: This patient presents for an assessment for low grade mucinous neoplasm of appendix(LAMN). Patient c/o; reports no changes or complaints at this time. Cardiology Physician Assistant Required: No Accompanied by: Self / Same As Patient Allergies No Known Allergies Allergy (Verified 10/30/23 15:54) Medication List - Last Reconciled 10/30/23 by Louie Nair MD No Known Home Meds HPI Low grade mucinous neoplasm of appendix (LAMN) HPI Details He is here for follow-up for his history of low-grade mucinous neoplasm of the appendix. He would undergone right colon resection in Feb, 2023 and this LAMN lesion was seen in the appendix He continues to do well. He denies any significant GI complaints. He says he feels well overall. He has good oral intake. He says that he did follow-up with the office of Dr. Dnaiel Clarke of Surgical Oncology in [facility] 2 weeks ago. He said he had a CAT scan done as well as some blood draws there for surveillance. 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 Appendiceal abscess Acute perforated appendicitis Surgical History S/P right colectomy (~03/03/23) H/O hand surgery Social History Household Members: Spouse and Children Housing: House Do you presently have visiting nurse or other home services: No Comment: S3 Patient Tobacco Use Status: Never used Tobacco Substance Use Type: Marijuana service: No Current occupational status: employed [employer] Const Denies chills and Denies fever(s) Card Denies chest pain, Denies dyspnea and Denies dyspnea on exertion Resp Denies cough, Denies dyspnea and Denies dyspnea on exertion GI Denies hematochezia and Denies change in bowel habits Denies hematuria and Denies difficulty urinating Musc Denies back pain and Denies limited range of motion Neuro Denies focal weakness and Denies convulsions Psych Denies depression and Denies mood swings Physical Exam Vital Signs: Last Vital Signs Pulse 63 10/30/23 15:53 BP 109/60 10/30/23 15:53 Const General: comfortable and no acute distress Orientation/consciousness: patient oriented x3 Neck Neck: Yes no lymphadenopathy Resp Auscultation: clear to auscultation bilaterally Cardio Rhythm: regular rhythm GI Other: No palpable mass Palpation (GI): Soft to palpation, nontender and no guarding Neuro General: patient oriented x3 Assessment & Plan Assessment & Plan (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 He had LAMN seen on pathologic exam of the appendix, T4 N0 He is undergoing close surveillance. He had seen [facility] of [facility] 2 weeks ago. He said he had a CAT scan done along with blood draws. He says that he has not heard about the results yet but he had assumed that these have been good as he has not been called back I will try to retrieve all those studies so we can have a copy here in the office. I will review them for him. Otherwise, I will see him again in the office in about 6 months. I had scheduled him to undergo a follow-up CT scan as well as blood draws including for serum chromogranin, CA 19 9, CEA as well as CA 125 as well as a 24-hour HIAA urine sample. However, since it appears that he has had this done in [place], he oral canceled this and review the results. Orders: Orders Chromogranin A Today D37.3 - Neoplasm of uncertain behavior of appendix Carcinoembryonic Antigen Today D37.3 - Neoplasm of uncertain behavior of appendix Blood Urea Nitrogen Today D37.3 - Neoplasm of uncertain behavior of appendix Creatinine Today D37.3 - Neoplasm of uncertain behavior of appendix 5-HIAA 24 Hour Urine Today D37.3 - Neoplasm of uncertain behavior of appendix Carbohydrate Antigen 19-9 Today D37.3 - Neoplasm of uncertain behavior of appendix CA-125 Today D37.3 - Neoplasm of uncertain behavior of appendix CT abdomen pelvis w IV con Today D37.3 - Neoplasm of uncertain behavior of appendix Coding Level of Care Code Est Pt Level 3 (14961) Diagnoses Low grade mucinous neoplasm of appendix D37.3
[2023-10-30 15:53] VITALS: BP 109/60; PULSE 63
== END 2023-10-30 16:05 | disposition home or self-care (01) ==
LOC: HO.HGS 15:47
PROVIDERS: PCP Nurse Practitioner Family; Visit Provider Surgery
DX: D37.3 Neoplasm of uncertain behavior of appendix (principal)
CPT/HCPCS: 99213

== ENCOUNTER → 2023-10-30 15:47 | Outpatient (BNVA) | payer BC, SELFPAY | PROVIDERS: PCP Nurse Practitioner Family; Visit Provider Surgery | DX: D37.3 Neoplasm of uncertain behavior of appendix (principal) ==

== ENCOUNTER 2024-05-15 09:25 | Outpatient (AMB) | payer OTHER, SELFPAY ==
--- NOTE | 2024-05-15 09:29 | A.OFFVIS_ITS ---
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 Pt c/o; reports no complaints. 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 He had been undergoing serial CT scans. His last CT scan was in March, and he says that this was unremarkable. He denies GI complaints. He says he feels well overall. He says he has no problems with weight loss. He says he has good energy level. 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 Appendiceal abscess Acute perforated appendicitis Surgical History S/P right colectomy (~03/03/23) H/O hand surgery Social History Household Members: Spouse and Children Housing: House Do you presently have visiting nurse or other home services: No Comment: S3 Patient Tobacco Use Status: Never used Tobacco Substance Use Type: Marijuana service: No Current occupational status: employed Review of Systems Const Denies chills and Denies fever(s) Card Denies chest pain, Denies dyspnea and Denies dyspnea on exertion Resp Denies cough, Denies dyspnea and Denies dyspnea on exertion GI Denies hematochezia and Denies change in bowel habits Denies hematuria and Denies difficulty urinating Musc Denies back pain and Denies limited range of motion Neuro Denies focal weakness and Denies convulsions Psych Denies depression and Denies mood swings Physical Exam Vital Signs: Last Vital Signs Pulse 83 05/15/24 09:34 BP 129/78 05/15/24 09:34 Const General: comfortable and no acute distress Resp Effort & Inspection: normal respiratory effort Cardio Rate: regular rate GI Palpation (GI): Soft to palpation, not firm and nontender Assessment & Plan Assessment & Plan (1) Low grade mucinous neoplasm of appendix: Code(s): D37.3 - Neoplasm of uncertain behavior of appendix Category: Medical Plan: He looks well clinically. His abdomen soft and benign. He denies any GI complaints. He is being closely followed in [place]. His last CT scan in March, was unremarkable. He says he had tumor markers done there as well which have been stable He looks well overall. I emphasized to him the need for close surveillance. He is scheduled to have another CT scan in October,. I will see him in the office thereafter. Coding Level of Care Code Est Pt Level 3 (96723) Diagnoses Low grade mucinous neoplasm of appendix D37.3
[2024-05-15 09:34] VITALS: BP 129/78; PULSE 83
== END 2024-05-15 09:46 | disposition home or self-care (01) ==
PROVIDERS: PCP Nurse Practitioner Family; Visit Provider Surgery
DX: D37.3 Neoplasm of uncertain behavior of appendix (principal)
CPT/HCPCS: 99213

== ENCOUNTER → 2024-05-15 09:25 | Outpatient (BNVA) | payer OTHER, SELFPAY | PROVIDERS: PCP Nurse Practitioner Family; Visit Provider Surgery ==